=== PATIENT | female | born 1940 | race Caucasian/White ===

== ENCOUNTER 2018-03-25 15:19 | Outpatient (CLI) | payer MEDICARE, BC, SELFPAY ==
--- NOTE | 2018-03-25 14:00 | DI.MAMMO_ITS ---
SYMPTOMS/DIAGNOSIS: SCREENING, Z12.39 BILATERAL SCREENING MAMMOGRAM: Mammograms were interpreted according to the usual protocol including computer analysis with CAD system, tomosynthesis and C view imaging. Comparison is made with exams from 2013 through 2017. The breasts are composed of heterogeneously dense fibroglandular tissue, breast density category C. No suspicious masses or suspicious microcalcifications are seen. There has been no significant change. IMPRESSION: Category 1C, negative mammogram. Yearly screening mammography is recommended. RUST ASSESSMENT OF FINDINGS: Negative. Category 1. Patient will receive a letter notifying them of these results. Bi-RADS category C. The breasts are heterogeneously dense, which may obscure small masses.
== END 2018-03-25 15:39 ==
PROVIDERS: PCP Family Medicine; Visit Provider Family Medicine
DX: Z12.31 Encounter for screening mammogram for malignant neoplasm of breast (principal)
CPT/HCPCS: 77063; 77067

== ENCOUNTER 2018-06-17 10:47 | Outpatient (CLI) | payer MEDICARE, BC, SELFPAY ==
[2018-06-17 11:45] LABS: Abs Immature Grans 0.01 k/cumm (0.0-0.09); Absolute Basophil Count 0.06 k/cumm (0.0-0.2); Absolute Eosinophil Count 0.26 k/cumm (0.0-0.7); Absolute Lymphocyte Count 1.94 k/cumm (1.2-3.4); Absolute Monocyte Count 0.91 k/cumm (0.11-0.7); Absolute Neutrophil Count 5.25 k/cumm (1.2-6.7); Basophils % 0.7; Eosinophils % 3.1; HCT 41.3 % (36.0-46.0); HGB 13.9 g/dL (12.0-15.5); Immature Grans % 0.1; Mean Corp. HGB Concentration 33.7 g/dL (32.0-36.0); Mean Corpuscular Hemoglobin 32.7 pg (27.0-33.0); Mean Corpuscular Volume 97.2 fL (80-95); Mean Platelet Volume 11.1 fL (8.0-11.0); Monocytes % 10.8; Neutrophils % 62.3; Platelet Count 237 x1000/uL (130-400); RBC 4.25 m/cumm (4.00-5.20); RBC Distribution Width 13.4 % (11.7-14.6); White Blood Cell Count 8.43 k/cumm (4.4-10.8)
[2018-06-17 12:30] LABS: ALT 35 U/L (12-78); AST 22 U/L (15-37); Albumin 3.8 g/dL (3.4-5.0); Alkaline Phosphatase 74 U/L (46-116); Anion Gap 11.1 mmol/L (3-11); BUN 33 mg/dL (7-18); Bilirubin, Total 0.4 mg/dL (0.2-1.0); CO2 24.9 mmol/L (21.0-32.0); CREATININE 1.26 mg/dL (0.55-1.02); Calcium 9.3 mg/dL (8.5-10.1); Chloride 103 mmol/L (98-107); Cholesterol 252 mg/dL (50-200); Estimated GFR 40.96 (mL/min/1.73m2); Glucose 93 mg/dL (70-100); HDL Cholesterol 72 mg/dL (40-60); LDL CHOLESTEROL 173 mg/dL (<100); Potassium 4.4 mmol/L (3.5-5.1); Sodium 139 mmol/L (136-145); TSH 1.71 uIU/mL (0.358-3.74); Total Protein 8.3 g/dL (6.4-8.2); Triglyceride 69 mg/dL (30-150)
== END 2018-06-17 11:07 ==
PROVIDERS: PCP Family Medicine; Visit Provider Family Medicine
DX: E03.9 Hypothyroidism, unspecified (principal); E78.5 Hyperlipidemia, unspecified
CPT/HCPCS: 36415; 80053; 80061; 83721; 84443; 85025

== ENCOUNTER 2019-04-11 07:53 | Outpatient (CLI) | payer MEDICARE, BC, SELFPAY ==
--- NOTE | 2019-04-11 15:39 | DI.MAMMO_ITS ---
EXAM: MG MAMMO SCREENING CLINICAL HISTORY: SCREENING, Z12.31. TECHNIQUE: Bilateral full field digital CC and MLO mammographic images were obtained with 3D tomosyn thesis and utilizing computer aided detection (CAD). COMPARISON: Priors available for comparison. FINDINGS: Masses/Architectural Distortion: None seen. Microcalcifications: No suspicious pleomorphic-type are seen. Breast Density - Category C - Heterogeneously dense IMPRESSION: 1. No significant interval change with no specific features of malignancy noted. 2. Unless there is more urgent need, screening mammography is recommended, as per [place] [employer] guidelines. ACR BI-RAD Category- 1 Negative The mammogram demonstrates the patient's breast tissue is dense. Dense breast tissue is very common a nd is not abnormal but dense breast tissue can make it harder to find cancer on a mammogram. Also, de nse breast tissue may increase their breast cancer risk. This information about the result of the [facility] [place] [facility] mogram report was provided to the patient to raise their awareness. Use this report when you speak wi th the patient about their risks for breast cancer, which includes their family history. At that time , you may recommend for more screening tests (Ultrasound or MRI) as they might be useful based on the ir risk. A negative radiographic report should not delay biopsy if a dominant or clinically suspicious mass is present. Up to ten percent of cancers are not identified on mammography. A negative report may reinforce clinical impression. Adenosis and dense breasts may obscure an underlying neoplasm. False positive reports average 6 to 10%.
== END 2019-04-11 08:13 ==
PROVIDERS: PCP Family Medicine; Visit Provider Family Medicine
DX: Z12.31 Encounter for screening mammogram for malignant neoplasm of breast (principal)
CPT/HCPCS: 77063; 77067

== ENCOUNTER 2020-04-19 06:47 | Outpatient (CLI) | payer MEDICARE, BC, SELFPAY ==
--- NOTE | 2020-04-19 | DI.MAMMO_ITS ---
EXAM: MG MAMMO SCREENING CLINICAL HISTORY: SCREENING, Z12.31 TECHNIQUE: Mammograms were interpreted according to the usual protocol including computer analysis w [employer] CAD system, tomosynthesis and C-view imaging. COMPARISON: FINDINGS: The breasts are heterogeneously dense. No dominant mass or clumped microcalcification is identified in either breast. There are areas of asymmetric density without a discrete mass in the left breast, these appear unchanged in appearance in comparison with multiple prior mammograms and may represent f ibroglandular tissue and/or scarring. No change identified in comparison with mammograms including S eptember 2019. IMPRESSION: No specific evidence of malignancy at this time. Routine screening examinations are suggested at yea rly intervals due to the family history of breast carcinoma. BI-RADS Category 2 - Benign Findings Breast Density - Category C - Heterogeneously dense
== END 2020-04-19 07:07 ==
PROVIDERS: PCP Family Medicine; Visit Provider Family Medicine
DX: Z12.31 Encounter for screening mammogram for malignant neoplasm of breast (principal); Z80.3 Family history of malignant neoplasm of breast
CPT/HCPCS: 77063; 77067

== ENCOUNTER 2020-06-22 04:32 | Outpatient (CLI) | payer MEDICARE, BC, SELFPAY ==
[2020-06-22 17:02] LABS: TSH 0.21 uIU/mL (0.36-3.74)
== END 2020-06-22 04:52 ==
PROVIDERS: PCP Family Medicine; Visit Provider Family Medicine
DX: E03.9 Hypothyroidism, unspecified (principal)
CPT/HCPCS: 36415; 84443

== ENCOUNTER 2020-11-05 02:13 | Outpatient (CLI) | payer MEDICARE, BC, SELFPAY ==
[2020-11-05 11:29] LABS: Abs Immature Grans 0.03 10^3/uL (0.0-0.06); Absolute Basophil Count 0.08 10^3/uL (0.0-0.2); Absolute Eosinophil Count 0.33 10^3/uL (0.0-0.7); Absolute Lymphocyte Count 2.16 10^3/uL (1.2-3.4); Absolute Monocyte Count 0.87 10^3/uL (0.1-0.8); Absolute Neutrophil Count 4.44 10^3/uL (1.2-6.7); Eosinophils % 4.2; HCT 39.5 % (36.0-46.0); HGB 13.4 g/dL (11.2-15.7); Immature Grans % 0.4; Lymphocytes % 27.3; MCH 32.7 pg (27.0-33.0); MCHC 33.9 % (32.0-36.0); MCV 96.3 fL (80-95); MPV 11.2 fL (8.0-11.0); Neutrophils % 56.1; Nucleated RBC 0 %; Platelet Count 261 10^3/uL (130-400); RDW 12.7 % (11.7-14.6); WBC 7.91 10^3/uL (4.4-10.8)
[2020-11-05 11:59] LABS: ALT 38 U/L (14-59); AST 24 U/L (15-37); Albumin 3.7 g/dL (3.4-5.0); Alkaline Phosphatase 79 U/L (46-116); Anion Gap 11.2 mmol/L (3-11); BUN 30 mg/dL (7-18); Bilirubin, Total 0.3 mg/dL (0.2-1.0); CO2 22.8 mmol/L (21.0-32.0); CREATININE 1.3 mg/dL (0.55-1.02); Calcium 9.3 mg/dL (8.5-10.1); Calculated LDL 144 mg/dL (<100); Chloride 108 mmol/L (98-107); Cholesterol 223 mg/dL (<200); Estimated GFR 39.21 (mL/min/1.73m2); Glucose 93 mg/dL (74-106); HDL Cholesterol 61 mg/dL (40-60); Potassium 4.5 mmol/L (3.5-5.1); Sodium 142 mmol/L (136-145); TSH 3.49 uIU/mL (0.36-3.74); Total Protein 8.2 g/dL (6.4-8.2); Triglyceride 91 mg/dL (<150)
== END 2020-11-05 02:14 | disposition home or self-care (01) ==
LOC: LBO 02:14
PROVIDERS: PCP Family Medicine; Visit Provider Family Medicine
DX: E78.5 Hyperlipidemia, unspecified (principal); E03.9 Hypothyroidism, unspecified
CPT/HCPCS: 36415; 80053; 80061; 84443; 85025

== ENCOUNTER 2021-05-12 01:09 | Outpatient (CLI) | payer MEDICARE, BC, SELFPAY ==
--- NOTE | 2021-05-12 | DI.MAMMO_ITS ---
Exam(s) MAMMO SCREENING EXAM: MAMMO SCREENING CLINICAL HISTORY: SCREENING, Z12.31. TECHNIQUE: Bilateral full field digital CC and MLO mammographic images were obtained with 3D tomosyn thesis and utilizing computer aided detection (CAD). COMPARISON: Prior mammograms dating back to 2011, the most recent being April 2020. FINDINGS: There has been no significant change in the appearance and distribution of the fibroglandular tissue. There are no new spiculated masses nor malignant appearing microcalcification groups. There is no significant architectural distortion nor skin thickening-retraction. IMPRESSION: No radiographic evidence of malignancy. BI-RADS Category 1 - Negative Breast Density - Category B - Scattered areas of fibroglandular density Breast density Category C or D implies that the patient has dense breast tissue. Dense breast tissue can make it harder to find cancer on a mammogram. Dense breast tissue is also associated with an incr eased risk of breast cancer. This information about the result of the mammogram report was provided to the patient to raise their awareness. Use this report when you speak with the patient about their risks for breast cancer, which includes their family history. At that time, you may recommend additional screening tests (Ultrasoun d or MRI) as these tests may add significant information. A negative radiographic report should not delay biopsy if a dominant or clinically suspicious mass is present. Up to ten percent of cancers are not identified on mammography. A negative report may reinforce clinical impression. Adenosis and dense breasts may obscure an underlying neoplasm. False positive reports average 6 to 10%. Patient will receive a letter notifying them of these results.
== END 2021-05-12 01:29 ==
PROVIDERS: PCP Family Medicine; Visit Provider Family Medicine
DX: Z12.31 Encounter for screening mammogram for malignant neoplasm of breast (principal)
CPT/HCPCS: 77063; 77067

== ENCOUNTER 2021-05-24 18:18 | Emergency (ER) | payer MEDICARE, BC, SELFPAY ==
--- NOTE | 2021-05-24 18:15 | DI.RAD_ITS ---
Exam(s) XR HIP RT COMPLETE AP PELVIS EXAM: XR HIP RT COMPLETE AP PELVIS CLINICAL HISTORY: pain. TECHNIQUE: 2D digital imaging was performed. COMPARISON: CR RIGHT HIP COMPLETE from 08/18/2011 FINDINGS: Position alignment of the components of the right hip prosthesis remain stable. No fracture or loose chance evident. Incidentally noted is contrast in the ureters and urinary bladder, this related to proceeding CT scan . IMPRESSION: DATA REPOSITORY: RADIATION DOSE DELIVERED:
[2021-05-24 18:22] VITALS: BP 130/74; PULSE 102; RESP 16; TEMP 36.8; O2SAT 100
--- NOTE | 2021-05-24 18:27 | ED.GENADUL_ITS ---
Discharge Plan Disposition Patient Disposition: HOME Condition: Stable Discharge Details Clinical Impression: Acute right hip pain Primary Care Provider: Trell Weston ED Provider: Chris Case Home Meds and New Rx's Prescriptions: No Action levothyroxine [Synthroid] 150 mcg tablet 150 mcg PO QAM RF: 0 Discharge Instructions Instructions: Hip Pain (ED) Additional Instructions: At this time your x-rays and CAT scans showed no significant abnormality. Please take Tylenol as needed for pain and ice the joint if necessary. Avoid any vigorous activities and I would take a break in golfing for a little bit. Please follow-up on an outpatient basis with the funding specialist Dr. Anderson and Dr. Bennett. If you notice any worsening of your symptoms, or any new symptoms such as vomiting, diarrhea, fever, chills, shortness of breath, chest pain, numbness, weakness, or fainting , please return immediately to the emergency department for reevaluation. Please follow up with your primary care provider as soon as possible for reassessment and reevaluation. As always, it was a pleasure participating in your medical care today. Referrals: Vern Bennett MD [ [facility] STAFF PHYSICIAN] - Trell Weston [Primary Care Provider] - Judd Anderson MD [ [facility] STAFF PHYSICIAN] - Medical Decision Making <Reji Saleem MD - Last Filed: 05/24/21 18:41> 80 yo female who had a right hip replacement in 2005 comes in with right hip pain for 2 days with no known injury or trauma. She is able to bear weight on it without a limp and denies leg swelling or fevers. She has full range of motion of the hip and intact distal sensation, has tenderness over the lateral hip w ithout warmth or erythema, no back tenderness. She has not had gi symptoms but on exam is tender in the right lower abdomen, no guarding or reboud tenderness. Suspect this is likely hip strain vs bursitis but given her age and the right lower abdominal tenderness will obtain ct to further evaluate for possible appendicitis Differential Diagnosis Differential Diagnosis: bursitis, strain, fracture Lab Data Lab results reviewed: Yes I reviewed the patient's lab results. <Chris Case DO - Last Filed: 05/24/21 23:02> Patient was signed out to me tomorrow by my colleague Dr. Saleem. Please refer to his physical exam assessment and plan in HPI. At time of exam the patient had mild pain in the right lower quadrant versus the right hip. Concern was for potential intra-abdominal pathology versus orthotic hip pathology. X-ray and CT scan were ordered by Dr. Saleem for further assessment as well as labs. Laboratory work-up is returned notably unremarkable. CT scan of the abdomen and x-ray of the right hip is negative for acute process per virtual radiology. On reassessment the patient looks clinically well, no reproducible abdominal tenderness on exam, no signs of an acute surgical abdomen. Hip is relatively nontender, with mild pain with movement at all. No evidence of septic joint, or other abnormality otherwise. At this time suspect symptoms are likely related to arthritis, and potential mild joint irritation. Recommend outpatient follow-up with orthopedics in this area. Recommend ice and Tylenol. Discussed red flags which to return. Also recommend that the patient take a break from golfing as she is quite the avid golfer and walks around quite a bit still with this. I have extensively reviewed the treatment plan and discharge instructions with the patient and their family. I have addressed all patient concerns at this time. The patient and family was made aware of what symptoms to monitor for that would warrant a return to the emergency department. Discussed the plan with the patient and family, they demonstrate verbal understanding and agreement with our assessment and plan at this time. The documentation in this chart was dictated using [employer] dictation software. Please excuse any dictation errors. FINDINGS: Lungs: Mild interstitial lung disease with bronchiectasis. Liver: Normal. No mass. Gallbladder and bile ducts: Collapsed gallbladder. Wall thickening noted in the fundus. No calcified stones. Pancreas: Fatty replaced ventral pancreas. No inflammatory changes. No ductal dilatation. Spleen: Chronic splenic granulomas. Chronic inferior splenic infarct. Normal size overall. Adrenal glands: Normal. No mass. Kidneys and ureters: Negative for hydronephrosis. Kidneys enhance symmetrically. Simple cyst inferior pole right kidney 3.7 cm. Nondilated ureters. No stones observed. Stomach and bowel: Extensive sigmoid colon diverticulosis. No acute inflammatory changes observed around the colon. Scattered diverticula noted elsewhere in the colon. Normal ileocecal valve and terminal ileum. Nondilated small bowel. Unremarkable stomach. Appendix: No evidence of appendicitis. The appendix is not well-visualized. Intraperitoneal space: Unremarkable. No free air. No significant fluid collection. Vasculature: Negative for aneurysm. Moderate vascular calcifications. Lymph nodes: Unremarkable. No enlarged lymph nodes. Urinary bladder: Collapsed urinary bladder. No stones. Reproductive: Unremarkable as visualized. Bones/joints: Right hip arthroplasty. Negative for periprosthetic fracture or lucency. Moderate left hip narrowing. Negative for compression fracture. Degenerative anterolisthesis L3 on L4. Mild multilevel degenerative disc disease and facet arthropathy. Chronic endplate depression L5 superior endplate. Soft tissues: Negative for abdominal wall hernia or fluid collection. Infraumbilical scar tissue and surgical material noted. IMPRESSION: Negative for bowel obstruction or acute inflammatory abnormality. Thank you for allowing us to participate in the care of your patient. Dictated and Authenticated by: Reji Roca MD 05/24/2021 8:39 PM Eastern Time ([place] & [place]) FINDINGS: Bones/joints: Right total hip arthroplasty. Components are well seated. Negative for acute fracture or lucency around the hardware. Femoral head is centered in the acetabular cup. Right pubic rami are intact. Moderate narrowing present in the left hip, with subchondral sclerosis and osteophyte formation. Moderate degenerative changes present in the lumbar spine. Soft tissues: Unremarkable. Organs: Contrast present in the urinary bladder from the earlier CT. The left ureter is well opacified and appears normal. Vasculature: Phleboliths are noted in the pelvis. Moderate vascular calcifications noted. IMPRESSION: Right total hip arthroplasty. No complications appreciated. Thank you for allowing us to participate in the care of your patient. Dictated and Authenticated by: Reji Roca MD 05/24/2021 8:42 PM Eastern Time ([place] & [place]) HPI <Reji Saleem MD - Last Filed: 05/24/21 18:41> General Mode of arrival: ambulatory . Date/Time Provider Initiated Documentation: 05/24/21 18:22 . Limitations to Documentation: no limitations . Information obtained by: patient . History of Present Illness 80 year old F presents to the emergency department with the chief complaint of right hip pain, described as moderate, Quality is described as aching, Patient reports no radiation. Patient started experiencing this day(s) (2) and it has been constant. No relieving factors improve symptom(s), Other factors that worsen symptoms (bending forward) . Patient notes no other symptoms.. Related Data Home Medications Medication Instructions Recorded Confirmed levothyroxine [Synthroid] 150 mcg PO QAM 05/24/21 05/24/21 Allergies Allergy/AdvReac Type Severity Reaction Status Date / Time meperidine [From Demerol] AdvReac Intermediate Nausea Unverified 05/24/21 18:27 morphine AdvReac Intermediate Nausea Unverified 05/24/21 18:27 General Stated Complaint: Orthopedic ANIYA: 4 Review of Systems <Reji Saleem MD - Last Filed: 05/24/21 18:41> All systems reviewed & are unremarkable except as noted in HPI and below Constitutional Constitutional: Denies chills, Denies fever(s) and Denies weakness Cardiovascular Cardiovascular: Denies chest pain and Denies dyspnea Respiratory Respiratory: Denies cough and Denies dyspnea Gastrointestinal Gastrointestinal: Denies abdominal pain, Denies nausea and Denies vomiting Musculoskeletal Musculoskeletal: Denies joint swelling Neurologic Neurologic: Denies weakness PFS <Reji Saleem MD - Last Filed: 05/24/21 18:41> Social History Smoking/Tobacco Use Status: Never Smoking risk assessment performed?: Yes Alcohol Intake: current Alcohol Intake frequency: 0-2 drinks per day Alcohol type: wine Substance use type: does not use Do you feel safe at home: Yes Do you feel safe in your relationship?: Yes Exam <Reji Saleem MD - Last Filed: 05/24/21 18:41> Const General: no acute distress Orientation: alert HENCT Head: normal to inspection Ears: external ears normal General nose exam: external nose normal Mouth: moist mucous membranes Eyes General: appearance normal, both eyes and all related structures Neck Neck: normal visual inspection Resp Effort & Inspection: normal respiratory effort and able to speak in complete sentences Cardio Rate: regular rate Skin General skin exam: no rashes or lesions noted Neuro General: patient alert and patient oriented x3 Extrem General: normal to inspection Psych Mental Status: mental status grossly normal Course <Reji Saleem MD - Last Filed: 05/24/21 18:41> Vital Signs Vital signs: Vital Signs Temperature 36.8 C 05/24/21 18:22 Pulse 102 H 05/24/21 18:22 Respiratory Rate 16 05/24/21 18:22 Blood Pressure 130/74 05/24/21 18:22 Pulse Oximetry 100 05/24/21 18:22 Temperature 36.8 C 05/24/21 18:22 Temperature Source Temporal Artery Scan 05/24/21 18:22 Pulse 102 H 05/24/21 18:22 Respiratory Rate 16 05/24/21 18:22 Respiratory Effort Non-Labored 05/24/21 18:25 Blood Pressure 130/74 05/24/21 18:22 Blood Pressure Position Sitting 05/24/21 18:22 Pulse Oximetry 100 05/24/21 18:22 Oxygen Delivery Method Room Air 05/24/21 18:22 Oxygen Flow Rate 0 05/24/21 18:22 Pain Level 0 05/24/21 18:22 Comment 05/24/21 18:22 Sign Out <Reji Saleem MD - Last Filed: 05/24/21 18:41> Sign Out Data: Sign Out Comment: right hip and right lower abdominal pain, pending ct scan Last updated by Reji Saleem MD at 05/24/21 18:55 PAWSS <Reji Saleem MD - Last Filed: 05/24/21 18:41> Have you Been Recently Intoxicated or Drunk Within the Last 30 days?: No Have you Ever Experienced Previous Episodes of Alcohol Withdrawal?: No Have you ever Experienced Withdrawal Seizures?: No Have you ever Experienced Delirium Tremens(DT)s?: No Have you ever undergone Alcohol Rehabilitation Treatment (i.e, inpt ot outpatien t treatment programs)?: No Have you ever Experienced Blackouts?: No Have you ever Combined Alcohol with other Downers within the last 90 days?: No Have you ever Combined Alcohol with any other Substance of Abuse during the last 90 days?: No Positive Blood Alcohol level on Presentation? [PCS.BAL]: No Evidence of Increased Autonomic Activity (i.e. HR>120, tremor, sweating, agitation, nausea)?: No Result: 0
--- NOTE | 2021-05-24 18:30 | DI.CT_ITS ---
Exam(s) CT ABDOMEN PELVIS W EXAM: CT ABDOMEN PELVIS W CLINICAL HISTORY: right lower abdomen pain. TECHNIQUE: Imaging Protocol: Axial computed tomography images with coronal and sagittal reformatted images were created and reviewed CONTRAST MATERIAL: Intravenous: Omnipaque 85cc Oral: None COMPARISON: No exams were available for comparison FINDINGS: VISUALIZED LUNG BASES: No nodules nor pleural effusions evident. ABDOMEN: There is no ascites. LIVER: There are no focal hepatic lesions evident . GALLBLADDER/BILIARY: No obvious gallbladder pathology. CBD is not dilated. PANCREAS: No evidence of pancreatic mass nor dilatation of the pancreatic duct. SPLEEN: Spleen size is normal. Calcified splenic granulomas are noted. Hypodensity in the superior aspect of the spleen noted which probably is related to prior area of infarction. Splenic and portal veins are patent. ADRENALS: There are no significant adrenal masses. KIDNEYS:There is a 3.8 cm cyst in the inferior pole of the right kidney. No other cysts. No solid r enal masses. No calculi nor hydronephrosis.. ABDOMINAL AORTA: Abdominal aorta is heavily calcified but not enlarged. The common iliac arteries ar e also heavily calcified but not enlarged. LYMPH NODES:There is no retroperitoneal nor paraaortic adenopathy. ABDOMINAL WALL: There is a vertical suture line in the upper abdomen above the umbilicus level. Ther e is no evidence of significant anterior abdominal hernia. No evidence of inguinal hernia. GI: There is no evidence of bowel obstruction, free air, nor abscess. PELVIS: GI: The appendix is not seen is a separate structure. However, there are no secondary signs of acute appendicitis.There is extensive sigmoid diverticulosis. No evidence of obvious acute diverticulitis . LYMPH NODES: There is no intrapelvic nor inguinal adenopathy. REPRODUCTIVE: Age-appropriate uterus size. No abnormal adnexal masses nor free fluid. URINARY BLADDER: No calculi nor obvious masses evident OSSEOUS: Right hip prosthesis. Degenerative anterolisthesis of L3 upon L4, approximately 3 millimeters.. Multilevel facet arthropat hy noted in the lumbar spine. Endplate depression superior endplate L5, having chronic appearance. IMPRESSION: 1. Extensive sigmoid diverticulosis. No obvious acute diverticulitis. 2. Benign 3.8 centimetres cyst in the inferior pole the right kidney. No other significant renal fin dings. 3. No evidence of acute inflammatory process in the abdomen and pelvis. There is no ascites. 4. 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 RADIATION DOSE DELIVERED: 736.22mGy.cm Total DLP DATA REPOSITORY: All CT scans at this facility are submitted to the National Radiology Data Registry (NRDR) Dose Index Registry (DIR) with the [employer] (ACR). RADIATION OPTIMIZATION: All CT scans at this facility use at least one of these dose optimization te chniques: automated exposure control; mA and/or kV adjustment per patient size (includes targeted exa ms where dose is matched to clinical indication); or iterative reconstruction.
[2021-05-24] MEDS: Acetaminophen 500 MG TAB 1000 MG PO (18:53)
[2021-05-24 19:15] LABS: Abs Immature Grans 0.03 10^3/uL (0.0-0.06); Absolute Basophil Count 0.06 10^3/uL (0.0-0.2); Absolute Eosinophil Count 0.15 10^3/uL (0.0-0.7); Absolute Lymphocyte Count 1.87 10^3/uL (1.2-3.4); Absolute Neutrophil Count 6.55 10^3/uL (1.2-6.7); Basophils % 0.6; Eosinophils % 1.6; HCT 43.1 % (36.0-46.0); HGB 14.3 g/dL (11.2-15.7); Immature Grans % 0.3; Lymphocytes % 19.6; MCH 32.3 pg (27.0-33.0); MCHC 33.2 % (32.0-36.0); MCV 97.3 fL (80-95); Monocytes % 9.4; Neutrophils % 68.5; Nucleated RBC 0 %; Platelet Count 256 10^3/uL (130-400); RBC 4.43 10^6/uL (3.93-5.22); RDW 12.3 % (11.7-14.6); RDW-SD 44.1 fL; WBC 9.56 10^3/uL (4.4-10.8)
[2021-05-24 19:47] LABS: Albumin 4.1 g/dL (3.4-5.0); BUN 35 mg/dL (7-18); Bilirubin, Total 0.3 mg/dL (0.2-1.0); CREATININE 1.3 mg/dL (0.55-1.02); Calcium 9.3 mg/dL (8.5-10.1); Estimated GFR 39.21 (mL/min/1.73m2); Glucose 139 mg/dL (74-106); Total Protein 9.7 g/dL (6.4-8.2)
[2021-05-24 19:48] LABS: ALT 51 U/L (14-59); AST 23 U/L (15-37); Alkaline Phosphatase 78 U/L (46-116); Anion Gap 10.3 mmol/L (3-11); Bilirubin, Direct 0.1 mg/dL (0.0-0.2); CO2 24.7 mmol/L (21.0-32.0); Chloride 105 mmol/L (98-107); Lipase 225 U/L (73-393); Potassium 4.3 mmol/L (3.5-5.1); Sodium 140 mmol/L (136-145)
[2021-05-24] MEDS: Omnipaque 350 MG/ML 100 ML BTL IJ (19:54)
[2021-05-24] MEDS: Normal Saline - Diluent 50 ML VIAL IV (19:57)
[2021-05-24] MEDS: Normal Saline Flush 10 ML SYR IVP (19:57)
--- NOTE | 2021-05-24 20:40 | DI.VRAD_ITS ---
PROCEDURE INFORMATION: Exam: CT Abdomen And Pelvis With Contrast Exam date and time: 05/24/2021 6:36 PM Age: 80 years old Clinical indication: Abdominal pain; Localized; Right lower quadrant (rlq); Prior surgery; Surgery date: 6+ months; Surgery type: R hip; Patient HX: Rlq pain for 3 days TECHNIQUE: Imaging protocol: Computed tomography of the abdomen and pelvis with contrast. Radiation optimization: All CT scans at this facility use at least one of these dose optimization techniques: automated exposure control; mA and/or kV adjustment per patient size (includes targeted exams where dose is matched to clinical indication); or iterative reconstruction. Contrast material: OMNIPAQUE 350; Contrast volume: 85 ml; Contrast route: INTRAVENOUS (IV); COMPARISON: No relevant prior studies available. FINDINGS: Lungs: Mild interstitial lung disease with bronchiectasis. Liver: Normal. No mass. Gallbladder and bile ducts: Collapsed gallbladder. Wall thickening noted in the fundus. No calcified stones. Pancreas: Fatty replaced ventral pancreas. No inflammatory changes. No ductal dilatation. Spleen: Chronic splenic granulomas. Chronic inferior splenic infarct. Normal size overall. Adrenal glands: Normal. No mass. Kidneys and ureters: Negative for hydronephrosis. Kidneys enhance symmetrically. Simple cyst inferior pole right kidney 3.7 cm. Nondilated ureters. No stones observed. Stomach and bowel: Extensive sigmoid colon diverticulosis. No acute inflammatory changes observed around the colon. Scattered diverticula noted elsewhere in the colon. Normal ileocecal valve and terminal ileum. Nondilated small bowel. Unremarkable stomach. Appendix: No evidence of appendicitis. The appendix is not well-visualized. Intraperitoneal space: Unremarkable. No free air. No significant fluid collection. Vasculature: Negative for aneurysm. Moderate vascular calcifications. Lymph nodes: Unremarkable. No enlarged lymph nodes. Urinary bladder: Collapsed urinary bladder. No stones. Reproductive: Unremarkable as visualized. Bones/joints: Right hip arthroplasty. Negative for periprosthetic fracture or lucency. Moderate left hip narrowing. Negative for compression fracture. Degenerative anterolisthesis L3 on L4. Mild multilevel degenerative disc disease and facet arthropathy. Chronic endplate depression L5 superior endplate. Soft tissues: Negative for abdominal wall hernia or fluid collection. Infraumbilical scar tissue and surgical material noted. IMPRESSION: Negative for bowel obstruction or acute inflammatory abnormality. Dictated and Authenticated by: Reji Roca MD. Ordering:CHAYITO Mendoza MD
--- NOTE | 2021-05-24 20:43 | DI.VRAD_ITS ---
PROCEDURE INFORMATION: Exam: XR Right Hip Exam date and time: 05/24/2021 6:27 PM Age: 80 years old Clinical indication: Hip pain; Right hip; Prior surgery; Surgery date: 6+ months; Surgery type: Hip repair 13 years ago TECHNIQUE: Imaging protocol: XR Right hip. Views: 2 or 3 views hip with pelvis when performed. COMPARISON: CT ABDOMEN PELVIS W 05/24/2021 7:56 PM FINDINGS: Bones/joints: Right total hip arthroplasty. Components are well seated. Negative for acute fracture or lucency around the hardware. Femoral head is centered in the acetabular cup. Right pubic rami are intact. Moderate narrowing present in the left hip, with subchondral sclerosis and osteophyte formation. Moderate degenerative changes present in the lumbar spine. Soft tissues: Unremarkable. Organs: Contrast present in the urinary bladder from the earlier CT. The left ureter is well opacified and appears normal. Vasculature: Phleboliths are noted in the pelvis. Moderate vascular calcifications noted. IMPRESSION: Right total hip arthroplasty. No complications appreciated. Dictated and Authenticated by: Reji Roca MD. Ordering:CHAYITO Mendoza MD
[2021-05-24] MEDS: Normal Saline 1,000 ML 1000 ML IV (20:50)
== END 2021-05-24 22:18 | disposition home or self-care (01) ==
PROVIDERS: Emergency Medicine; Emergency Provider Student in an Organized Health Care Education/Training Program; PCP Family Medicine
DX: M25.551 Pain in right hip (principal); Z96.641 Presence of right artificial hip joint; R10.31 Right lower quadrant pain
CPT/HCPCS: 36415; 80053; 83690; 96360; 99285; 73502; 74177; 82248; 85025; 99284; J3490

== ENCOUNTER 2021-08-31 16:00 | Outpatient (REF) | payer MEDICARE, BC, SELFPAY ==
[2021-08-31 21:38] LABS: ALT 46 U/L (14-59); AST 26 U/L (15-37); Alkaline Phosphatase 76 U/L (46-116); Anion Gap 12.5 mmol/L (3-11); BUN 33 mg/dL (7-18); Bilirubin, Total 0.5 mg/dL (0.2-1.0); CO2 21.5 mmol/L (21.0-32.0); CREATININE 1.4 mg/dL (0.55-1.02); Calcium 9.1 mg/dL (8.5-10.1); Calculated LDL 149 mg/dL (<100); Chloride 104 mmol/L (98-107); Cholesterol 237 mg/dL (<200); Glucose 88 mg/dL (74-106); HDL Cholesterol 76 mg/dL (40-60); Potassium 4.2 mmol/L (3.5-5.1); Sodium 138 mmol/L (136-145); TSH 0.66 uIU/mL (0.36-3.74); Total Protein 8.8 g/dL (6.4-8.2); Triglyceride 63 mg/dL (<150)
== END 2021-08-31 16:01 | disposition home or self-care (01) ==
LOC: NCHCN 16:00
PROVIDERS: PCP Family Medicine; Visit Provider Nurse Practitioner Family
DX: E03.9 Hypothyroidism, unspecified (principal); N18.31 Chronic kidney disease, stage 3a; M81.0 Age-related osteoporosis without current pathological fracture
CPT/HCPCS: 80053; 80061; 84443

== ENCOUNTER 2021-11-02 12:32 | Outpatient (REF) | payer MEDICARE, BC, SELFPAY ==
[2021-11-02 20:20] LABS: Anion Gap 7.2 mmol/L (3-11); BUN 35 mg/dL (7-18); CO2 24.8 mmol/L (21.0-32.0); CREATININE 1.4 mg/dL (0.55-1.02); Calcium 9.1 mg/dL (8.5-10.1); Chloride 103 mmol/L (98-107); Estimated GFR 35.91 (mL/min/1.73m2); Glucose 98 mg/dL (74-106); Potassium 4.5 mmol/L (3.5-5.1); Sodium 135 mmol/L (136-145)
== END 2021-11-02 12:33 | disposition home or self-care (01) ==
LOC: NCHCN 12:32
PROVIDERS: PCP Family Medicine; Visit Provider Nurse Practitioner Family
DX: E03.9 Hypothyroidism, unspecified (principal); N18.31 Chronic kidney disease, stage 3a
CPT/HCPCS: 80048; 84443

== ENCOUNTER 2023-02-15 17:25 | Emergency (ER) | payer MEDICARE, BC, SELFPAY ==
[2023-02-15 17:28] VITALS: BP 134/64; PULSE 105; RESP 20; TEMP 36.3; O2SAT 95
--- NOTE | 2023-02-15 18:15 | DI.CT_ITS ---
Exam(s) CT CHEST/ABD/PEL WO EXAM: CT CHEST/ABD/PEL WO CLINICAL HISTORY: trauma, thoracic pain, lumbar pain. TECHNIQUE: Imaging Protocol: Axial computed tomography images with coronal and sagittal reformatted images were created and reviewed CONTRAST MATERIAL: Intravenous: none Oral: None COMPARISON: CT CT ABDOMEN PELVIS W from 05/24/2021 FINDINGS: CHEST: LUNGS: There is a benign calcified granuloma measuring 3 mm in the right lung. No ominous pulmonary nodules. No confluent infiltrates and no pleural effusions. Some benign-appearing focal pleural thi ckening is noted posteriorly over the right lower lobe.. MEDIASTINUM: There is no evidence of sternal fracture or mediastinal hematoma. No hilar nor mediasti nal adenopathy evident. CARDIAC: Heart size is normal. There is no pericardial effusion.Calcified mitral valve annulus noted . Also coronary artery calcification. Caliber of thoracic aorta is normal. OSSEOUS: There is a 50 percent compression fracture T9 vertebral body, age indeterminate. No retrop ulsed cortex at this level evident.No other vertebral fractures and no rib fractures evident.. ABDOMEN: There is no ascites. No evidence of mesenteric nor bowel wall hematoma. LIVER: There are no obvious focal hepatic lesions evident of this noninfused study. No liver lacerat ion evident. GALLBLADDER/BILIARY: No obvious gallbladder pathology. CBD is not dilated. PANCREAS: No evidence of obvious pancreatic mass nor dilatation of the pancreatic duct. SPLEEN: Spleen size normal. No laceration evident. Calcified splenic granulomas noted. ADRENALS: There are no significant adrenal masses. KIDNEYS: No evidence of renal laceration or subcapsular hematoma.. There is again noted benign cyst in the inferior pole of the right kidney measuring 3.5 by 4.3 cm by 4.3 cm. This benign cyst does no t require further workup. No calculi. No hydronephrosis nor hydroureter. ABDOMINAL AORTA: Calcified but not enlarged. Iliac arteries are also calcified but not enlarged. LYMPH NODES: There is no retroperitoneal nor para-aortic adenopathy. ABDOMINAL WALL/GI: There midline fascial level sutures. No hematoma. No hernia evident. No evidence of bowel obstruction. PELVIS: LYMPH NODES: There is no intrapelvic nor inguinal adenopathy. GI: No evidence of appendicitis.Sigmoid diverticulosis but no evidence of acute diverticulitis. No f ree fluid. URINARY BLADDER: No calculi nor obvious masses evident REPRODUCTIVE: Age appropriate OSSEOUS: Right hip prosthesis. No pelvic fractures.. No sacral fractures. SI joints unremarkable. IMPRESSION: 1. There is a compression fracture of T9 vertebral body, approximately 50 percent. Age indeterminate . May not be acute. Correlation with site of tenderness recommended. No other fractures identified . 2. No other significant intrathoracic findings. 3. No significant acute findings in the abdomen pelvis. RADIATION DOSE DELIVERED: 808.34 mGy.cm Total DLP DATA REPOSITORY: All CT scans at this facility are submitted to the National Radiology Data Registry (NRDR) Dose Index Registry (DIR) with the [employer] (A[employer]). RADIATION OPTIMIZATION: All CT scans at this facility use at least one of these dose optimization te chniques: automated exposure control; mA and/or kV adjustment per patient size (includes targeted exa ms where dose is matched to clinical indication); or iterative reconstruction.
--- NOTE | 2023-02-15 18:15 | DI.CT_ITS ---
Exam(s) CT HEAD CERVICAL SPINE WO EXAM: CT HEAD CERVICAL SPINE WO CLINICAL HISTORY: trauma. TECHNIQUE: Imaging Protocol: Axial computed tomography images with coronal and sagittal reformatted images were created and reviewed COMPARISON: CT CT MAXILLOFAC from 10/01/2007 FINDINGS: BRAIN: There are no skull fractures. There is evidence of paranasal sinus surgery in right maxillary sinus. Some mucosal thickening but n o fluid level. Left maxillary sinus is clear as are sphenoid frontal sinuses and ethmoidal air cells , some which have been resected on the right side. There is no evidence of intracranial hemorrhage, mass effect, or shift of midline structures. There are no extra-axial fluid collections. There is relatively symmetrical atrophy. Size of the lateral ventricles is slightly prominent but commensurate with the size of the overlying cortical sulci. CERVICAL SPINE: There is no evidence of fracture nor listhesis. No significant prevertebral soft tissue swelling. Chronic disc space narrowing at C5-6 and C6-7 levels. Multilevel facet arthropathy. There is no significant facet joint malalignment. No significant osseous lesions evident. IMPRESSION: No acute intracranial findings on this noninfused CT scan of the brain.Previous right paranasal sinus surgery. No evidence of cervical spine fracture, malalignment, nor acute compromise of the cervical spinal can al. RADIATION DOSE DELIVERED: 1,244.65mGy.cm Total DLP DATA REPOSITORY: All CT scans at this facility are submitted to the National Radiology Data Registry (NRDR) Dose Index Registry (DIR) with the [employer] (ACR). RADIATION OPTIMIZATION: All CT scans at this facility use at least one of these dose optimization te chniques: automated exposure control; mA and/or kV adjustment per patient size (includes targeted exa ms where dose is matched to clinical indication); or iterative reconstruction.
[2023-02-15] MEDS: Ondansetron O.D.T. 4 MG TABEF PO (18:34)
--- NOTE | 2023-02-15 18:36 | W.ED.GENAD ---
Discharge Plan Discharge Details Chief Complaint: Nk/Back Pain Clinical Impression: Back pain, Fall Primary Care Provider: Alma Scott ED Provider: Mohini Lindsey Home Meds and New Rx's Prescriptions: No Action melatonin 5 mg tablet 5 mg PO DAILY PRN ibuprofen 800 mg tablet 800 mg PO TID prednisolone acetate 1 % drops,suspension 1 drp ophthalmic (eye) 1XD levothyroxine [Synthroid] 150 mcg tablet 150 mcg PO QAM Medical Decision Making 82-year-old female presents for evaluation of back pain after mechanical fall. Denies any loss of consciousness. Denies any recent illnesses. On evaluation she does have back pain in several locations. She is neurologically intact. Right shoulder start 0. Patient initially declined IV medication however she opted for IV medication as she did not feel she would be able to get imaging done without it. CT reports pending at this time. Patient required additional dose of pain medication. Signed out to oncoming provider with CT reports and disposition pending. HPI General Date/Time Provider Initiated Documentation: 02/15/23 17:27. HPI Narrative: 82-year-old female presents for evaluation. Patient states that she fell on Sunday. She states that she slept in the night. She went to the kitchen and was standing at the sink when she realized she felt woozy. She fell backwards. She did hit the back of her head as well as her back. She did not have any loss of consciousness. She was able to crawl to the living room and get herself off the ground. She states that since that time she has been having increasing pain in her back. She denies any numbness or tingling in her extremities. No weakness in her extremities. She does have some rib discomfort. She denies any chest pain or shortness of breath. She has been taking Tylenol and Motrin at home without any significant improvement. Denies any loss of bowel or bladder function. No saddle anesthesia. She is not on any blood thinners. Denies any headaches. No vomiting. She states that she now has significant discomfort and is unable to lay flat. She feels most comfortable sitting on the side of the bed leaning forward. Related Data Home Medications Medication Instructions Recorded Confirmed levothyroxine 150 mcg tablet 150 mcg PO QAM 05/24/21 02/15/23 (Synthroid) ibuprofen 800 mg tablet 800 mg PO TID 11/09/22 02/15/23 melatonin 5 mg tablet 5 mg PO DAILY PRN 11/09/22 02/15/23 prednisolone acetate 1 % eye 1 drp ophthalmic (eye) 1XD 02/15/23 02/15/23 drops,suspension Allergies Allergy/AdvReac Type Severity Reaction Status Date / Time codeine Allergy Unknown Unverified 02/15/23 17:36 estrogens, conjugated Allergy Unknown Unverified 02/15/23 17:36 [From Premarin] levothyroxine sodium Allergy Unknown Unverified 02/15/23 17:36 [From Synthroid] meperidine [From Demerol] AdvReac Intermediate Nausea Unverified 02/15/23 17:36 morphine AdvReac Intermediate Nausea Unverified 02/15/23 17:36 General Stated Complaint: Nk/Back Pain ANIYA: 3 Review of Systems Narrative: Remainder of review of systems otherwise negative except for as noted in the HPI x10. PFSH All Active Problems (Updated 02/15/23 @ 19:50 by Mohini Lindsey MD) Back pain (Acute) Fall (Acute) Hypothyroidism (Chronic) Osteoporosis (Chronic) Protein S deficiency (Acute) Sialadenitis (Acute) Chronic kidney disease (Chronic) Dyspnea (Acute) deconditioned Vitamin D deficiency (Acute) takes supplement Diverticulosis (Acute) Presbyopia (Acute) Infiltrating lobular carcinoma of breast, stage 1 (Acute) Left breast Dr. Will, [facility] surgeon Medical History Breast lump or mass Dr. Will, [facility] surgeon Chronic osteomyelitis of jaw historical use of Premarin with protein s deficiency. Many surgeries in her history, has dental implants. Surgical History History of left cataract surgery (~07/18/14) History of right cataract surgery (~06/28/14) Hx of section Hx of colonoscopy 2001, 2016 Hx of removal of cyst (~1993) Hx of sinus surgery 1988, 2006, 08/2015, 01/2016 Hx of tonsillectomy Hx of wisdom tooth extraction (~1987) Family History Mother , 85 No problems noted. Father , 49 Heart disease Sister , 80 Breast cancer Brother , 55 Heart disease Son No problems noted. Social History Smoking/Tobacco Use Status: Former Tobacco Use Quit Date: 07/16/91 Smoking risk assessment performed?: Yes Alcohol Intake: former Drug use: Never Substance use type: does not use Caregiver/Support person: No Household members: none Housing: house Communication Needs: None Do you need help understanding health information?: Never Pets and animals: No Do you think of yourself as: straight/heterosexual Current gender identity: female What is your relationship status?: How often do you talk on the phone with friends or family?: decline to answer How often do you get together with friends or relatives?: decline to answer How often do you attend catholic or presybeterian services?: decline to answer Do you belong to any clubs or organized social groups?: decline to answer Panel score (0-1 are the most socially isolated patients): 0 What type of physical activity do you participate in: none Frequency: does not exercise Laura/Yazdanism: Orthodox Special laura needs: No Seatbelt use: always 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 no wheezes, rales, rhonchi, or retractions Abd: soft, non-tender, non-distended, normal bowel sounds, no rebound or guarding, no peritoneal signs Musculoskeletal: Pain to palpation over mid thoracic and lumbar sacral vertebrae, pelvis stable, full range of motion of arms and legs, no tenderness to palpation. no clubbing, cyanosis, or edema Neurologic: GCS 15, cranial 2 through 12 intact, sensation intact, appropriate for age, strength normal Psych: alert and oriented speech normal, Skin:no petechiae, no lesions, warm and dry Course Vital Signs Vital signs: Vital Signs Temperature 36.3 C L 02/15/23 17:28 Pulse 105 H 02/15/23 17:28 Respiratory Rate 20 02/15/23 17:28 Blood Pressure 134/64 02/15/23 17:28 Pulse Oximetry 95 02/15/23 17:28 Temperature 36.3 C L 02/15/23 17:28 Pulse 105 H 02/15/23 17:28 Respiratory Rate 20 02/15/23 17:28 Respiratory Effort Normal 02/15/23 17:33 Blood Pressure 134/64 02/15/23 17:28 Blood Pressure Position Sitting 02/15/23 17:28 Pulse Oximetry 95 02/15/23 17:28 Oxygen Delivery Method Room Air 02/15/23 17:28 Oxygen Flow Rate 0 02/15/23 17:28 Pain Level 5 02/15/23 17:48 Sign Out Sign Out Data: Sign Out Comment: 82-year-old female presents for evaluation of back pain. She had a fall on Sunday without loss of consciousness. She has pain to her thoracic and lumbar sacral spine. There is some rib discomfort. Neurologically intact. Awaiting CT reports and reassessment. Last updated by Mohini Lindsey MD at 02/15/23 19:48
--- NOTE | 2023-02-15 18:57 | DI.CT_ITS ---
Exam(s) CT THORACIC LUMBAR SPINE REC EXAM: CT THORACIC LUMBAR SPINE REC CLINICAL HISTORY: trauma TECHNIQUE: COMPARISON: CT CT ABDOMEN PELVIS W from 05/24/[address] CHEST/ABD/PEL WO from 02/15/2023 FINDINGS: THORACIC SPINAL COLUMN: There is a compression fracture of T9 vertebral body with approximately 50 pe rcent height loss. probably subacute. there is no significant retropulsion of the posterior cortex at this level. There is no canal compromise evident at this level. No other vertebral fractures. N o facet malalignment. No acute compromise of the canal. LUMBOSACRAL SPINAL COLUMN: No evidence of acute fracture. Schmorl's node invagination at superior en dplate of L5 noted which was evident on abdominal CT scan of May 2021. There is mild degenerati ve anterolisthesis of L3 upon L4 again noted, also unchanged from 2020. Small Schmorl's node invagin ation of superior endplate of T12 is also unchanged from 202. There is multilevel facet arthropathy in the mid-lower lumbar spine. No facet malalignment. IMPRESSION: T9 compression fracture which is probably not acute (probably subacute). There is no significant retropulsion of the cortex at this level nor elsewhere in the thoracolumbar s pine. No canal compromise. Findings in the lumbar spine described above are unchanged from abdominal CT scan of May 2021.
[2023-02-15] MEDS: fentaNYL 100 MCG/2 ML VIAL 50 MCG IVP ×2 (19:15→20:00)
--- NOTE | 2023-02-15 19:36 | NUR.NOTE ---
This RN assumed care at this time, report received by [facility], introduced self to pt, IV started and pain meds given per request refer to SEP, pt sent to CT.
--- NOTE | 2023-02-15 19:56 | DI.VRAD_ITS ---
PROCEDURE INFORMATION: Exam: CT Chest Without Contrast; Diagnostic Exam date and time: 02/15/2023 7:34 PM Age: 82 years old Clinical indication: Injury or trauma; Fall; Generalized; Blunt trauma (contusions or hematomas); Injury details: Trauma, thoracic pain, lumbar pain TECHNIQUE: Imaging protocol: Diagnostic computed tomography of the chest without contrast. 3D rendering (Not supervised by radiologist): MIP and/or 3D reconstructed images were created by the technologist. Radiation optimization: All CT scans at this facility use at least one of these dose optimization techniques: automated exposure control; mA and/or kV adjustment per patient size (includes targeted exams where dose is matched to clinical indication); or iterative reconstruction. COMPARISON: CT HEAD CERVICAL SPINE WO 02/15/2023 7:30 PM FINDINGS: Lungs: 3 mm noncalcified nodule in the right middle lobe Calcified granuloma in the right middle lobe No consolidation. No masses. Pleural spaces: Unremarkable. No pneumothorax. No pleural effusion. Heart: Coronary calcifications No cardiomegaly. No pericardial effusion. Lymph nodes: Unremarkable. No enlarged lymph nodes. Vasculature: Unremarkable. No aortic aneurysm. Bones/joints: Age-indeterminate moderate compression fracture at T9 Soft tissues: Possible faint paraspinal/prevertebral hematoma at T9 IMPRESSION: Age-indeterminate moderate compression fracture at T9 without significant central canal stenosis new since the prior study. Minimal paraspinal hematoma. Findings may be subacute 3 mm right middle lobe nodule. Comparison with prior images would be helpful. Otherwise, chest CT follow-up within 12 months may be helpful PROCEDURE INFORMATION: Exam: CT Abdomen And Pelvis Without Contrast Exam date and time: 02/15/2023 7:34 PM Age: 82 years old Clinical indication: Injury or trauma; Fall; Generalized; Blunt trauma (contusions or hematomas); Injury details: Trauma, thoracic pain, lumbar pain TECHNIQUE: Imaging protocol: Computed tomography of the abdomen and pelvis without contrast. 3D rendering (Not supervised by radiologist): MIP and/or 3D reconstructed images were created by the technologist. Radiation optimization: All CT scans at this facility use at least one of these dose optimization techniques: automated exposure control; mA and/or kV adjustment per patient size (includes targeted exams where dose is matched to clinical indication); or iterative reconstruction. COMPARISON: CT ABDOMEN PELVIS W 05/24/2021 7:56 PM FINDINGS: Liver: Normal. No mass. Gallbladder and bile ducts: Normal. No calcified stones. No ductal dilation. Pancreas: Normal. No ductal dilation. Spleen: Normal. No splenomegaly. Adrenal glands: Normal. No mass. Kidneys and ureters: Right renal cyst No hydronephrosis. Stomach and bowel: Unremarkable. No obstruction. No mucosal thickening. Appendix: No evidence of appendicitis. Intraperitoneal space: Unremarkable. No free air. No significant fluid collection. Vasculature: Unremarkable. No abdominal aortic aneurysm. Lymph nodes: Unremarkable. No enlarged lymph nodes. Urinary bladder: Unremarkable as visualized. Reproductive: Unremarkable as visualized. Bones/joints: Degenerative changes in the lumbar spine No acute fracture. Right hip arthroplasty. Degenerative changes in the left hip with chronic ossicle noted Soft tissues: Unremarkable. IMPRESSION: No acute findings. Dictated and Authenticated by: Jabari Og MD. Ordering:JER Rajan MD
--- NOTE | 2023-02-15 19:57 | DI.VRAD_ITS ---
PROCEDURE INFORMATION: Exam: CT Thoracic Spine Without Contrast Exam date and time: 02/15/2023 7:34 PM Age: 82 years old Clinical indication: Injury or trauma; Fall; Blunt trauma (contusions or hematomas); Additional info: Trauma, thoracic pain, lumbar pain TECHNIQUE: Imaging protocol: Computed tomography of the thoracic spine without contrast. Radiation optimization: All CT scans at this facility use at least one of these dose optimization techniques: automated exposure control; mA and/or kV adjustment per patient size (includes targeted exams where dose is matched to clinical indication); or iterative reconstruction. COMPARISON: CT HEAD CERVICAL SPINE WO 02/15/2023 7:30 PM FINDINGS: Bones/joints: Moderate compression fracture at T9 of indeterminate age without significant central canal stenosis. Remainder of vertebral bodies grossly maintain height and alignment Soft tissues: Minimal paraspinal/prevertebral hematoma at T9 IMPRESSION: Age-indeterminate T9 moderate compression fracture which may be subacute. No significant central canal stenosis PROCEDURE INFORMATION: Exam: CT Lumbar Spine Without Contrast Exam date and time: 02/15/2023 7:34 PM Age: 82 years old Clinical indication: Injury or trauma; Fall; Blunt trauma (contusions or hematomas); Additional info: Trauma, thoracic pain, lumbar pain TECHNIQUE: Imaging protocol: Computed tomography of the lumbar spine without contrast. Radiation optimization: All CT scans at this facility use at least one of these dose optimization techniques: automated exposure control; mA and/or kV adjustment per patient size (includes targeted exams where dose is matched to clinical indication); or iterative reconstruction. COMPARISON: CT ABDOMEN PELVIS W 05/24/2021 7:56 PM FINDINGS: Bones/joints: No acute fracture. Anterolisthesis of L3 on L4 and L4 on L5 are presumed degenerative. No significant central canal or foraminal stenosis Soft tissues: Unremarkable. IMPRESSION: No acute findings. Dictated and Authenticated by: Jabari Og MD. Ordering:JER Rajan MD
--- NOTE | 2023-02-15 20:00 | DI.VRAD_ITS ---
PROCEDURE INFORMATION: Exam: CT Head Without Contrast Exam date and time: 02/15/2023 7:30 PM Age: 82 years old Clinical indication: Injury or trauma; Fall; Blunt trauma (contusions or hematomas) and concussion/head injury; Consciousness not specified TECHNIQUE: Imaging protocol: Computed tomography of the head without contrast. Radiation optimization: All CT scans at this facility use at least one of these dose optimization techniques: automated exposure control; mA and/or kV adjustment per patient size (includes targeted exams where dose is matched to clinical indication); or iterative reconstruction. COMPARISON: No relevant prior studies available. FINDINGS: Brain: Moderate volume loss No hemorrhage.Mild white matter disease No mass effect. Cerebral ventricles: No ventriculomegaly. Paranasal sinuses: Visualized sinuses are unremarkable. No fluid levels. Mastoid air cells: Visualized mastoid air cells are well aerated. Bones/joints: Unremarkable. No acute fracture. Soft tissues: Unremarkable. IMPRESSION: No acute intracranial hemorrhage PROCEDURE INFORMATION: Exam: CT Cervical Spine Without Contrast Exam date and time: 02/15/2023 7:30 PM Age: 82 years old Clinical indication: Injury or trauma; Fall; Blunt trauma (contusions or hematomas) and concussion/head injury; Consciousness not specified TECHNIQUE: Imaging protocol: Computed tomography of the cervical spine without contrast. Radiation optimization: All CT scans at this facility use at least one of these dose optimization techniques: automated exposure control; mA and/or kV adjustment per patient size (includes targeted exams where dose is matched to clinical indication); or iterative reconstruction. COMPARISON: No relevant prior studies available. FINDINGS: Bones/joints: No acute fracture. Loss of cervical lordosis is presumably on a degenerative basis.No significant disc bulge or herniation. No severe spinal canal stenosis. No significant neural foraminal narrowing. Lungs: Lung apices are grossly clear Soft tissues: Unremarkable. IMPRESSION: No acute findings. Dictated and Authenticated by: Jabari Og MD. Ordering:JER Rajan MD
--- NOTE | 2023-02-15 20:21 | W.EDPROG ---
Date of service: 02/15/23 Time of Service: 20:22 Medical Decision Making pt signed out to me pending CT imaging results, ct head/c spine negative, on ct chest/abd/pelvis and t/l spine CT has age indeterminate t 9 compression fx. Patient stable, feels well, her pain is in the lateral chest not midline so unclear if this compression fracture is acute. She is requesting d/c and she is stable for d/c at this time, advised to f/u with pcp, return precautions given. Sign Out Sign Out Data: Sign Out Comment: 82-year-old female presents for evaluation of back pain. She had a fall on Sunday without loss of consciousness. She has pain to her thoracic and lumbar sacral spine. There is some rib discomfort. Neurologically intact. Awaiting CT reports and reassessment. Last updated by Mohini Lindsey MD at 02/15/23 19:48 Discharge Plan Disposition Patient Disposition: Home Condition: Stable Discharge Details Clinical Impression: Back pain, Fall Primary Care Provider: Alma Scott ED Provider: Reji Saleem Home Meds and New Rx's Prescriptions: New ondansetron 4 mg tablet,disintegrating 4 mg PO Q8H PRN (Reason: nausea and vomiting) Qty: 30 0RF Continued melatonin 5 mg tablet 5 mg PO DAILY PRN ibuprofen 800 mg tablet 800 mg PO TID prednisolone acetate 1 % drops,suspension 1 drp ophthalmic (eye) 1XD levothyroxine [Synthroid] 150 mcg tablet 150 mcg PO QAM Discharge Instructions Instructions: Back Pain (ED) Additional Instructions: follow up with your primary care provider within 1 week if you feel more ill, have severe worsening pain or difficulty breathing return to the emergency department
[2023-02-15] MEDS: Ondansetron O.D.T. 4 MG TABEF, 3 TABS/BTL PO (20:41)
[2023-02-15] MEDS: Lidocaine 5% Patch 1 PATCH TP (20:45)
== END 2023-02-15 21:19 | disposition home or self-care (01) ==
PROVIDERS: Emergency Provider Emergency Medicine; PCP Nurse Practitioner Family
DX: M54.9 Dorsalgia, unspecified (principal); W19.XXXA Unspecified fall, initial encounter; S22.079A Unspecified fracture of T9-T10 vertebra, initial encounter for closed fracture
CPT/HCPCS: 71250; 96374; 96376; 99284; 70450; 72125; 74176; J3010

== ENCOUNTER 2023-05-28 13:19 | Outpatient (CLI) | payer MEDICARE, BC, SELFPAY ==
--- NOTE | 2023-05-28 13:15 | RT.EKG_ITS ---
APPROVED REPORT Exam: Resting ECG Reason for Exam: pre op Patient Location: O HR:80 bpm ECG Measurements Heart Rate 80 AXIS NV 155 P 63 QRSd 91 QRS 9 QT 394 T 42 QTc 455 Conclusion Sinus rhythm...normal P axis, V-rate 50- 99 Normal Electrocardiogram
== END 2023-05-28 13:20 | disposition home or self-care (01) ==
LOC: DI.CM 13:19
PROVIDERS: PCP Nurse Practitioner Family; Visit Provider Nurse Practitioner Family
DX: Z01.818 Encounter for other preprocedural examination (principal)
CPT/HCPCS: 93010

== ENCOUNTER 2023-06-08 21:45 | Outpatient (REF) | payer MEDICARE, BC, SELFPAY | END 2023-06-08 21:46 | disposition home or self-care (01) | LOC: LBN 21:45 | PROVIDERS: PCP Nurse Practitioner Family; Visit Provider Nurse Practitioner Family | DX: M54.9 Dorsalgia, unspecified (principal) | CPT/HCPCS: 87077; 87086; 87186 ==

== ENCOUNTER 2023-07-29 13:08 | Emergency (ER) | payer MEDICARE, BC, SELFPAY ==
[2023-07-29] VITALS (32 sets, daily range): BP systolic 120–148; BP diastolic 47–87; PULSE 83–119; RESP 5–21; TEMP 36.5; O2SAT 76–100
--- NOTE | 2023-07-29 13:30 | RT.EKG_ITS ---
APPROVED REPORT Exam: Resting ECG Reason for Exam: tachycardia Patient Location: E HR:88 bpm ECG Measurements Heart Rate 88 AXIS GA 144 P 57 QRSd 68 QRS 23 QT 360 T 40 QTc 435 Conclusion Sinus rhythm...normal P axis, V-rate 60- 99 Narrow complex normal sinus rhythm at a rate of 88. Normal axis. Intervals within normal limits. N o ST segment abnormalities. No T wave inversions. Mild T wave flattening in lead III. Appears aline lar to prior dated last year. No acute injury pattern.
[2023-07-29 14:21] LABS: Bilirubin Negative (Negative); Blood Small (Negative); Clarity Clear (Clear); Glucose Negative (Negative); Ketones Negative (Negative); Leukocyte Esterase Moderate (Negative); Nitrite Negative (Negative); Specific Gravity 1.025 (1.005-1.025); Urobilinogen 0.2 mg/dL (Up to 0.2)
[2023-07-29 14:48] LABS: Abs Immature Grans 0.02 10^3/uL (0.0-0.06); Absolute Basophil Count 0.08 10^3/uL (0.0-0.2); Absolute Eosinophil Count 0.18 10^3/uL (0.0-0.7); Absolute Lymphocyte Count 1.77 10^3/uL (1.2-3.4); Absolute Monocyte Count 0.91 10^3/uL (0.1-0.8); Absolute Neutrophil Count 6.95 10^3/uL (1.2-6.7); Basophils % 0.8; Eosinophils % 1.8; HCT 37.7 % (36.0-46.0); HGB 12.8 g/dL (11.2-15.7); Immature Grans % 0.2; Lymphocytes % 17.9; MCH 32.6 pg (27.0-33.0); MCV 96 fL (80-95); MPV 11.6 fL (8.0-11.0); Monocytes % 9.2; Neutrophils % 70.1; Platelet Count 233 10^3/uL (130-400); RBC 3.93 10^6/uL (3.93-5.22); RDW 12.8 % (11.7-14.6); RDW-SD 45.6 fL; WBC 9.91 10^3/uL (4.4-10.8)
--- NOTE | 2023-07-29 14:54 | ED.GENADUL_ITS ---
HPI <ROBINSON Petersen - Last Filed: 07/30/23 17:53> General Stated Complaint: Abd Prob ANIYA: 3 Date/Time Provider Initiated Documentation: 07/29/23 13:34. HPI Narrative: This 82-year-old female with history of protein S deficiency, hypothyroidism, chronic kidney disease, diverticulosis, breast cancer presents with report of left flank pain intermittently since the beginning of the summer. States it is typically worse with movement. States she had a kyphoplasty and a few days before her kyphoplasty she was to have a is wondering if it is her musculoskeletal pain. States she has had it daily and has not improved which is why she presents. Denies any dysuria or frequency. Denies any nausea or vomiting. Denies any strength or sensation changes to extremities. Denies fever or chills. Denies history of IV drug use. Related Data Home Medications Medication Instructions Recorded Confirmed levothyroxine 150 mcg tablet 150 mcg PO QAM 05/24/21 05/28/23 (Synthroid) melatonin 5 mg tablet 5 mg PO DAILY PRN 11/09/22 05/28/23 ondansetron 4 mg disintegrating 4 mg PO Q8H PRN nausea and 02/15/23 05/28/23 tablet vomiting #30 tabs prednisolone acetate 1 % eye 1 drp ophthalmic (eye) 1XD 02/15/23 05/28/23 drops,suspension calcitonin (salmon) 200 1 spray intranasal (ALT) DAILY 03/29/23 05/28/23 unit/actuation nasal spray #3.7 mL oxycodone 5 mg tablet 5 mg PO BID PRN pain #56 tabs 03/29/23 05/28/23 cyclobenzaprine 5 mg tablet 5 mg PO TID PRN back pain #30 tabs 06/22/23 ibuprofen 800 mg tablet 800 mg PO TID #90 tabs 07/29/23 Previous Rx's Medication Instructions Recorded ondansetron 4 mg disintegrating 4 mg PO Q8H PRN nausea and 02/15/23 tablet vomiting #30 tabs calcitonin (salmon) 200 1 spray intranasal (ALT) DAILY 03/29/23 unit/actuation nasal spray #3.7 mL oxycodone 5 mg tablet 5 mg PO BID PRN pain #56 tabs 03/29/23 cyclobenzaprine 5 mg tablet 5 mg PO TID PRN back pain #30 tabs 06/22/23 ibuprofen 800 mg tablet 800 mg PO TID #90 tabs 07/29/23 Allergies Allergy/AdvReac Type Severity Reaction Status Date / Time codeine Allergy Unknown Unverified 07/29/23 13:16 estrogens, conjugated Allergy Unknown Unverified 07/29/23 13:16 [From Premarin] levothyroxine sodium Allergy Unknown Unverified 07/29/23 13:16 [From Synthroid] meperidine [From Demerol] AdvReac Intermediate Nausea Unverified 07/29/23 13:16 morphine AdvReac Intermediate Nausea Unverified 07/29/23 13:16 [facility] <ROBINSON Petersen - Last Filed: 07/30/23 17:53> All Active Problems (Updated 07/29/23 @ 18:03 by Edilson Birch NP) Flank pain (Acute) Compression fracture of body of thoracic vertebra (Acute) Hypothyroidism (Chronic) Osteoporosis (Chronic) Protein S deficiency (Acute) Sialadenitis (Acute) Chronic kidney disease (Chronic) Dyspnea (Acute) deconditioned Vitamin D deficiency (Acute) takes supplement Diverticulosis (Acute) Presbyopia (Acute) Infiltrating lobular carcinoma of breast, stage 1 (Acute) Left breast Dr. Will, [facility] surgeon Medical History Breast lump or mass Dr. Will, [facility] surgeon Chronic osteomyelitis of jaw historical use of Premarin with protein s deficiency. Many surgeries in her history, has dental implants. Surgical History History of left cataract surgery (~07/18/14) History of right cataract surgery (~06/28/14) Hx of section Hx of colonoscopy 2001, 2016 Hx of removal of cyst (~1993) Hx of sinus surgery 1988, 2006, 08/2015, 01/2016 Hx of tonsillectomy Hx of wisdom tooth extraction (~1987) Family History Mother , 85 No problems noted. Father , 49 Heart disease Sister , 80 Breast cancer Brother , 55 Heart disease Son No problems noted. Social History Smoking/Tobacco Use Status: Former Tobacco Use Quit Date: 07/16/91 Smoking risk assessment performed?: Yes Alcohol Intake: former Drug use: Never Substance use type: does not use Caregiver/Support person: No Household members: none Housing: house Communication Needs: None Do you need help understanding health information?: Never Pets and animals: No Do you think of yourself as: straight/heterosexual Current gender identity: female What is your relationship status?: How often do you talk on the phone with friends or family?: decline to answer How often do you get together with friends or relatives?: decline to answer How often do you attend temple or islam services?: decline to answer Do you belong to any clubs or organized social groups?: decline to answer Panel score (0-1 are the most socially isolated patients): 0 What type of physical activity do you participate in: none Frequency: does not exercise Laura/Temple: [employer] Special laura needs: No Seatbelt use: always Drive intox or ride w/intox 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 Do you feel safe at home: Yes Do you feel safe in your relationship?: Yes Course <ROBINSON Petersen - Last Filed: 07/30/23 17:53> Vital Signs Vital signs: Vital Signs Temperature 36.5 C 07/29/23 13:11 Pulse 119 H 07/29/23 13:11 Respiratory Rate 16 07/29/23 13:11 Blood Pressure 148/87 H 07/29/23 13:11 Pulse Oximetry 100 07/29/23 13:11 Temperature 36.5 C 07/29/23 13:11 Pulse 90 07/29/23 13:43 Respiratory Rate 18 07/29/23 13:43 Respiratory Effort Normal, Non-Labored 07/29/23 13:43 Blood Pressure 148/87 H 07/29/23 13:11 Blood Pressure Position Supine 07/29/23 13:43 Pulse Oximetry 99 07/29/23 13:43 Oxygen Delivery Method Room Air 07/29/23 13:43 Oxygen Flow Rate 0 07/29/23 13:11 Pain Level 0 07/29/23 13:43 Lab/Test Results Lab/Test Results: Laboratory Tests Range/Units 07/29/23 07/29/23 14:02 14:40 WBC (4.4-10.8) 10^3/uL 9.91 RBC (3.93-5.22) 10^6/uL 3.93 Hgb (11.2-15.7) g/dL 12.8 Hct (36.0-46.0) % 37.7 MCV (80-95) fL 96 H MCH (27.0-33.0) pg 32.6 MCHC (32.0-36.0) % 34.0 RDW (11.7-14.6) % 12.8 Plt Count (130-400) 10^3/uL 233 MPV (8.0-11.0) fL 11.6 H Immature Gran % 0.2 Neutrophils % 70.1 Lymphocytes % 17.9 Monocytes % 9.2 Eosinophils % 1.8 Basophils % 0.8 Nucleated RBC % (0.0-0.3) % 0.0 Absolute Neutrophils (1.2-6.7) 10^3/uL 6.95 H Absolute Lymphocytes (1.2-3.4) 10^3/uL 1.77 Absolute Monocytes (0.1-0.8) 10^3/uL 0.91 H Absolute Eosinophils (0.0-0.7) 10^3/uL 0.18 Absolute Basophils (0.0-0.2) 10^3/uL 0.08 Urine Color (Yellow) Yellow Urine Clarity (Clear) Clear Urine pH (5-8) 6.0 Ur Specific Gillett (1.005-1.025) 1.025 Urine Protein (Negative) mg/dL 100 H Urine Ketones (Negative) mg/dL Negative Urine Blood (Negative) Small H Urine Nitrite (Negative) Negative Urine Bilirubin (Negative) Negative Urine Urobilinogen (Up to 0.2) mg/dL 0.2 Ur Leukocyte Esterase (Negative) Moderate H Urine Glucose (Negative) mg/dL Negative Medical Decision Making <ROBINSON Petersen - Last Filed: 07/30/23 17:53> 82-year-old female, alert and oriented x 4, cranial nerves II through XII intact Strength and sensation intact distally, reproducible tenderness in the left flank and left upper quadrant region, no rebound or guarding, no visible evidence of trauma Labs were ordered for further evaluation, pending chemistry at this time, CBC without acute abnormality, urinalysis, will need microanalysis, unable to supply sufficient urine for microanalysis, will give fluids and attempt to obtain repeat specimen with micro to determine whether or not possible UTI Pending CT abdomen and pelvis and lumbar spine at this time Declines analgesia, will take Tylenol as needed per patient Quality:[facility] Health Related Social Needs: No Data to Display <Edilson Birch NP - Last Filed: 07/29/23 22:40> 82-year-old female, alert and oriented x 4, cranial nerves II through XII intact Strength and sensation intact distally, reproducible tenderness in the left flank and left upper quadrant region, no rebound or guarding, no visible evidence of trauma Labs were ordered for further evaluation, pending chemistry at this time, CBC without acute abnormality, urinalysis, will need microanalysis, unable to supply sufficient urine for microanalysis, will give fluids and attempt to obtain repeat specimen with micro to determine whether or not possible UTI Pending CT abdomen and pelvis and lumbar spine at this time Declines analgesia, will take Tylenol as needed per patient 1600-patient signed out to me from ROBINSON Petersen. Patient pending CT imaging, completion of fluids, review of urinalysis and reassessment. Reviewed urinalysis and there are findings to suggest urinary tract infection. CT imaging shows no acute findings consistent with patient's pain. Patient's fluids did complete and patient was reassessed and did state some improvement of symptoms but not full resolution. Patient was given a lidocaine patch to see if this helped with pain and discomfort as she felt it was more ribs or muscular. Urinalysis showing some findings to suggest urinary tract infection although patient denies any symptoms. Will treat with fosfomycin given that patient is having left-sided flank pain so I question if this could be referred from UTI but given asymptomatic have less suspicion for pyelonephritis. Will have patient follow-up with primary care provider for reassessment or return for new or worsening symptoms. After discussion of diagnosis and plan of care patient has no further needs, questions, or concerns and states clear understanding to return to the emergency department for any worsening symptoms. This documentation was generated using [employer] system, please disregard any oddities of phrase or misspellings. Imaging Data Radiologic Study: Imaging: CT Scan Radiologist's impression: Exam(s) PROCEDURE INFORMATION: Exam: CT Abdomen And Pelvis With Contrast Exam date and time: 07/29/2023 4:02 PM Age: 82 years old Clinical indication: Other: Elevated lipase, UTI, flank, and ruq pain TECHNIQUE: Imaging protocol: Computed tomography of the abdomen and pelvis with contrast. Radiation optimization: All CT scans at this facility use at least one of these dose optimization techniques: automated exposure control; mA and/or kV adjustment per patient size (includes targeted exams where dose is matched to clinical indication); or iterative reconstruction. Contrast material: OMNI 350; Contrast volume: 80 ml; Contrast route: INTRAVENOUS (IV); COMPARISON: CT CHEST/ABD/PEL WO 02/15/2023 7:34 PM FINDINGS: Lungs: Mild bibasilar atelectasis. Liver: Normal. No mass. Gallbladder and bile ducts: Gallbladder contracted. Pancreas: Fatty replacement of the pancreatic head and neck are unchanged from previous study. Spleen: Small perisplenic low-density presumed subcapsular fluid density collection along the lateral aspect is not significantly changed from prior study allowing for technical differences. Adrenal glands: Normal. No mass. Kidneys and ureters: Right renal lower pole cyst again noted. Renal perfusion symmetric without hydronephrosis or hydroureter. Stomach and bowel: Extensive diverticulosis without evidence for acute diverticulitis. Appendix: No evidence of appendicitis. Intraperitoneal space: See Spleen finding. Vasculature: Severe atherosclerotic change again seen in the vasculature. Lymph nodes: Unremarkable. No enlarged lymph nodes. Urinary bladder: Unremarkable as visualized. Reproductive: Unremarkable as visualized. Bones/joints: Right hip prosthesis in place. Soft tissues: Unremarkable. IMPRESSION: No acute abnormality seen to account for symptoms. Nonacute changes as noted, stable. Dictated and Authenticated by: Barbara Wilson MD. Radiologic Study #2: Imaging: CT Scan Radiologist's impression: Exam(s) PROCEDURE INFORMATION: Exam: CT Lumbar Spine Without Contrast Exam date and time: 07/29/2023 4:02 PM Age: 82 years old Clinical indication: Other: Back pain TECHNIQUE: Imaging protocol: Computed tomography of the lumbar spine without contrast. Radiation optimization: All CT scans at this facility use at least one of these dose optimization techniques: automated exposure control; mA and/or kV adjustment per patient size (includes targeted exams where dose is matched to clinical indication); or iterative reconstruction. COMPARISON: CT THORACIC LUMBAR SPINE REC 02/15/2023 7:34 PM FINDINGS: Bones/joints: Spondylosis noted at the T9-10 level. Bone mineralization appears decreased. Right hip prosthesis noted. There is mild endplate compression at the L5 level on the right, possible asymmetric Schmorl's node. No acute cortical fracture noted. Vertebral body height is otherwise well preserved. Kidneys and ureters: Right renal cyst. Stomach and bowel: Diverticulosis without acute diverticulitis. Vasculature: Severe atherosclerotic change present in the vasculature. Soft tissues: Unremarkable. IMPRESSION: No acute abnormality evident. Spondylosis T9-T10. Mild loss of vertebral body height superior endplate right at L5, nonacute. Dictated and Authenticated by: Barbara Wilson MD. Lab Data Lab results reviewed: Yes I reviewed the patient's lab results. Sign Out <ROBINSON Petersen - Last Filed: 07/30/23 17:53> Sign Out Data: Sign Out Comment: pending fluids, ct, microanalysis of urine, and reassessment Last updated by Cornelia Anguiano PA at 07/29/23 15:53 Discharge Plan Disposition Patient Disposition: Home Discharge Details Clinical Impression: Flank pain Primary Care Provider: Alma Scott ED Provider: Edilson Birch Home Meds and New Rx's Prescriptions: Continued melatonin 5 mg tablet 5 mg PO DAILY PRN calcitonin (salmon) 200 unit/actuation spray,non-aerosol 1 spray intranasal (ALT) DAILY Qty: 3.7 0RF oxycodone 5 mg tablet 5 mg PO BID MDD 10 mg PRN (Reason: pain) Qty: 56 0RF cyclobenzaprine 5 mg tablet 5 mg PO TID PRN (Reason: back pain) Qty: 30 0RF Rx Instructions: Take 1 tablet by mouth three times a day as needed for back pain ibuprofen 800 mg tablet 800 mg PO TID Qty: 90 1RF prednisolone acetate 1 % drops,suspension 1 drp ophthalmic (eye) 1XD ondansetron 4 mg tablet,disintegrating 4 mg PO Q8H PRN (Reason: nausea and vomiting) Qty: 30 0RF levothyroxine [Synthroid] 150 mcg tablet 150 mcg PO QAM Discharge Instructions Instructions: Flank Pain (ED) Additional Instructions: At this time your CT imaging was unremarkable for any emergent findings. If you have any new or significant worsening of symptoms please return to the emergency department for reassessment. It is important to stay well-hydrated given your chronic kidney disease and that we performed a CAT scan with contrast today. Please follow-up with your primary care provider for reassessment and further testing or treatment as needed. Referrals: Amada Astudillo [Emergency Nurse] - 3 days (For reassessment) Discharge Data Discharge Date/Time-TO BE ENTERED AT DEPARTURE: 07/29/23 18:26
[2023-07-29 15:03] LABS: ALT 25 U/L (14-59); AST 22 U/L (15-37); Albumin 3.5 g/dL (3.4-5.0); Alkaline Phosphatase 101 U/L (46-116); Anion Gap 10.9 mmol/L (3-11); BUN 37 mg/dL (7-18); Bilirubin, Total 0.4 mg/dL (0.2-1.0); CO2 22.1 mmol/L (21.0-32.0); CREATININE 1.4 mg/dL (0.55-1.02); Calcium 9.5 mg/dL (8.5-10.1); Chloride 108 mmol/L (98-107); Glucose 110 mg/dL (74-106); Lipase 169 U/L (16-77); Potassium 4.9 mmol/L (3.5-5.1); Sodium 141 mmol/L (136-145); Total Protein 8.1 g/dL (6.4-8.2)
[2023-07-29] MEDS: Normal Saline 500 ML IV (15:05)
--- NOTE | 2023-07-29 15:30 | DI.CT_ITS ---
Exam(s) CT ABDOMEN PELVIS W EXAM: CT ABDOMEN PELVIS W CLINICAL HISTORY: elevated lipase, uti, flank and RUQ pain. TECHNIQUE: Imaging Protocol: Axial computed tomography images with coronal and sagittal reformatted images were created and reviewed CONTRAST MATERIAL: Intravenous: Omnipaque-350 100cc Oral: None COMPARISON: CT CT CHEST/ABD/PEL WO from 02/15/[address] THORACIC LUMBAR SPINE REC from 02/15/2023 FINDINGS: VISUALIZED LUNG BASES: No nodules nor pleural effusions evident. ABDOMEN: There is no ascites. LIVER: There are no focal hepatic lesions evident. No dilated intrahepatic ducts. GALLBLADDER/BILIARY: No obvious gallbladder pathology. CBD is not dilated. PANCREAS: No evidence of pancreatic mass nor dilatation of the pancreatic duct. SPLEEN: Spleen size is normal. There calcified splenic granulomas. There is subcapsular fluid in th e anterior lateral aspect of the spleen, more evident than previous. . The splenic and portal veins are patent. ADRENALS: There are no significant adrenal masses. KIDNEYS:There is a benign cyst in the inferior pole of the right kidney measuring 4.5 x 4.5 cm. Does not require further imaging workup. No other significant renal findings. No hydronephrosis. No hy droureter. No obvious abnormality in the urinary bladder although the bladder is partially obscured by beam hardening artifact from the right hip prosthesis.. ABDOMINAL AORTA: Calcified but not enlarged. The common iliac arteries are also calcified but not en larged. LYMPH NODES:There is no retroperitoneal nor paraaortic adenopathy. ABDOMINAL WALL: No evidence of significant anterior abdominal wall nor inguinal hernia. GI: There is no evidence of bowel obstruction, free air, nor abscess. PELVIS: GI: No evidence of appendicitis.Sigmoid diverticulosis without evidence of acute diverticulitis. LYMPH NODES: There is no intrapelvic nor inguinal adenopathy. REPRODUCTIVE: Uterus and adnexal regions unremarkable. No free fluid. URINARY BLADDER: As above. OSSEOUS: Right hip prosthesis. No fractures. No significant osseous lesions. IMPRESSION: 1. Subcapsular fluid along the lateral anterior aspect of the nonenlarged spleen is probably related to prior trauma-subcapsular hematoma. There are no overlying rib fractures. 2. Extensive sigmoid diverticulosis with no evidence of obvious acute diverticulitis. No evidence of appendicitis 3. There is a benign cyst in the lower pole of the right kidney measuring 4.5 x 4.5 cm. This is ment ioned in the impression because this patient apparently has right-sided pain and with no other abnorm alities on the right side. 4. There is no obvious acute gallbladder pathology but given the right-sided pain if clinically indic ated gallbladder ultrasound could be performed as this will sometimes reveal pathology not seen on CT scan in the gallbladder. RADIATION DOSE DELIVERED: 680.74mGy.cm Total DLP DATA REPOSITORY: All CT scans at this facility are submitted to the National Radiology Data Registry (NRDR) Dose Index Registry (DIR) with the [employer] (ACR). RADIATION OPTIMIZATION: All CT scans at this facility use at least one of these dose optimization te chniques: automated exposure control; mA and/or kV adjustment per patient size (includes targeted exa ms where dose is matched to clinical indication); or iterative reconstruction.
--- NOTE | 2023-07-29 15:30 | DI.CT_ITS ---
Exam(s) CT LUMBAR SPINE WO EXAM: CT LUMBAR SPINE WO CLINICAL HISTORY: back pain. TECHNIQUE: Imaging Protocol: Axial computed tomography images with coronal and sagittal reformatted images were created and reviewed COMPARISON: CT CT ABDOMEN PELVIS W from 07/29/2023 FINDINGS: Bones: There are no acute fractures. There is mild degenerative anterolisthesis of L3 upon L4 relat ed to facet arthropathy. No pars defects. There is mild concavity of the superior endplate of L5 wh ich is indented approximately 6 millimeters but no evidence of acute fracture at this level. Multile denisa facet arthropathy. No significant osseous lesions. PARASPINAL SOFT TISSUES: Benign cyst inferior pole right kidney noted. Does not require further work up. Right hip prosthesis noted. Advanced narrowing of the left hip joint noted. IMPRESSION: 1. No acute fractures. Other findings as above. 2. Multilevel facet arthropathy. Degenerative anterolisthesis of L3 upon L4-mild. RADIATION DOSE DELIVERED: 680.74mGy.cm Total DLP DATA REPOSITORY: All CT scans at this facility are submitted to the National Radiology Data Registry (NRDR) Dose Index Registry (DIR) with the [employer] (ACR). RADIATION OPTIMIZATION: All CT scans at this facility use at least one of these dose optimization te chniques: automated exposure control; mA and/or kV adjustment per patient size (includes targeted exa ms where dose is matched to clinical indication); or iterative reconstruction.
[2023-07-29] MEDS: Omnipaque 350 MG/ML 100 ML BTL IJ (16:04)
[2023-07-29 16:05] LABS: Epithelial Cells Few HPF (Negative); RBC 0-2 HPF (0-2)
[2023-07-29 16:06] LABS: Bacteria Negative HPF (Negative); C & S Indicated? Yes; Casts 0-2 Hyaline LPF (Negative); Crystals Negative HPF (Negative); Mucus Trace (Negative); Other Cells Rare Transitional (Negative)
--- NOTE | 2023-07-29 16:50 | DI.VRAD_ITS ---
PROCEDURE INFORMATION: Exam: CT Abdomen And Pelvis With Contrast Exam date and time: 07/29/2023 4:02 PM Age: 82 years old Clinical indication: Other: Elevated lipase, UTI, flank, and ruq pain TECHNIQUE: Imaging protocol: Computed tomography of the abdomen and pelvis with contrast. Radiation optimization: All CT scans at this facility use at least one of these dose optimization techniques: automated exposure control; mA and/or kV adjustment per patient size (includes targeted exams where dose is matched to clinical indication); or iterative reconstruction. Contrast material: OMNI 350; Contrast volume: 80 ml; Contrast route: INTRAVENOUS (IV); COMPARISON: CT CHEST/ABD/PEL WO 02/15/2023 7:34 PM FINDINGS: Lungs: Mild bibasilar atelectasis. Liver: Normal. No mass. Gallbladder and bile ducts: Gallbladder contracted. Pancreas: Fatty replacement of the pancreatic head and neck are unchanged from previous study. Spleen: Small perisplenic low-density presumed subcapsular fluid density collection along the lateral aspect is not significantly changed from prior study allowing for technical differences. Adrenal glands: Normal. No mass. Kidneys and ureters: Right renal lower pole cyst again noted. Renal perfusion symmetric without hydronephrosis or hydroureter. Stomach and bowel: Extensive diverticulosis without evidence for acute diverticulitis. Appendix: No evidence of appendicitis. Intraperitoneal space: See Spleen finding. Vasculature: Severe atherosclerotic change again seen in the vasculature. Lymph nodes: Unremarkable. No enlarged lymph nodes. Urinary bladder: Unremarkable as visualized. Reproductive: Unremarkable as visualized. Bones/joints: Right hip prosthesis in place. Soft tissues: Unremarkable. IMPRESSION: No acute abnormality seen to account for symptoms. Nonacute changes as noted, stable. Dictated and Authenticated by: Barbara Wilson MD. Ordering:ARASELI Locke MD
--- NOTE | 2023-07-29 16:55 | DI.VRAD_ITS ---
PROCEDURE INFORMATION: Exam: CT Lumbar Spine Without Contrast Exam date and time: 07/29/2023 4:02 PM Age: 82 years old Clinical indication: Other: Back pain TECHNIQUE: Imaging protocol: Computed tomography of the lumbar spine without contrast. Radiation optimization: All CT scans at this facility use at least one of these dose optimization techniques: automated exposure control; mA and/or kV adjustment per patient size (includes targeted exams where dose is matched to clinical indication); or iterative reconstruction. COMPARISON: CT THORACIC LUMBAR SPINE REC 02/15/2023 7:34 PM FINDINGS: Bones/joints: Spondylosis noted at the T9-10 level. Bone mineralization appears decreased. Right hip prosthesis noted. There is mild endplate compression at the L5 level on the right, possible asymmetric Schmorl's node. No acute cortical fracture noted. Vertebral body height is otherwise well preserved. Kidneys and ureters: Right renal cyst. Stomach and bowel: Diverticulosis without acute diverticulitis. Vasculature: Severe atherosclerotic change present in the vasculature. Soft tissues: Unremarkable. IMPRESSION: No acute abnormality evident. Spondylosis T9-T10. Mild loss of vertebral body height superior endplate right at L5, nonacute. Dictated and Authenticated by: Barbara Wilson MD. Ordering:ARASELI Locke MD
[2023-07-29 17:13] LABS: ALT 26 U/L (14-59); AST 16 U/L (15-37); Albumin 3.2 g/dL (3.4-5.0); Alkaline Phosphatase 101 U/L (46-116); Anion Gap 12.4 mmol/L (3-11); BUN 36 mg/dL (7-18); Bilirubin, Total 0.3 mg/dL (0.2-1.0); CO2 20.6 mmol/L (21.0-32.0); CREATININE 1.3 mg/dL (0.55-1.02); Calcium 8.9 mg/dL (8.5-10.1); Chloride 108 mmol/L (98-107); Estimated GFR 40.55 (mL/min/1.73m2); Glucose 100 mg/dL (74-106); Magnesium 2.1 mg/dL (1.8-2.4); Potassium 4.4 mmol/L (3.5-5.1); Sodium 141 mmol/L (136-145); Total Protein 7.4 g/dL (6.4-8.2); Troponin I < 50 ng/L (< or =60)
[2023-07-29] MEDS: Fosfomycin Tromethamine 3 GM PACKET PO (17:54)
[2023-07-29] MEDS: Lidocaine 5% Patch 1 PATCH TP (17:54)
== END 2023-07-29 18:26 | disposition home or self-care (01) ==
PROVIDERS: Emergency Medicine; Physician Assistant; Emergency Provider Nurse Practitioner Family; PCP Nurse Practitioner Family
DX: R10.9 Unspecified abdominal pain (principal); E03.9 Hypothyroidism, unspecified; D68.59 Other primary thrombophilia; N18.9 Chronic kidney disease, unspecified; Z85.3 Personal history of malignant neoplasm of breast; Z87.891 Personal history of nicotine dependence
CPT/HCPCS: 80053; 83690; 87077; 93005; 96360; 99285; 72131; 74177; 81003; 81015; 83735; 84484; 85025; 87086; 87186; 93010; 99284; J3490

== ENCOUNTER 2024-03-11 09:43 | Outpatient (CLI) | payer MEDICARE, BC, SELFPAY ==
--- NOTE | 2024-03-11 09:30 | RT.EKG_ITS ---
APPROVED REPORT Exam: Resting ECG Reason for Exam: pre-op Patient Location: O HR:83 bpm ECG Measurements Heart Rate 83 AXIS MN 138 P 59 QRSd 90 QRS 16 QT 387 T 55 QTc 455 Conclusion Sinus rhythm...normal P axis, V-rate 50- 99 Normal Electrocardiogram
== END 2024-03-11 09:44 | disposition home or self-care (01) ==
LOC: DI.CM 09:44
PROVIDERS: PCP Nurse Practitioner Family; Visit Provider Nurse Practitioner Family
DX: Z01.818 Encounter for other preprocedural examination (principal)
CPT/HCPCS: 93010; 81003

== ENCOUNTER 2024-03-11 17:50 | Outpatient (REF) | payer MEDICARE, BC, SELFPAY ==
[2024-03-11 17:00] LABS: Bilirubin Negative (Negative); Blood Negative (Negative); Clarity Sl Cloudy (Clear); Glucose Negative (Negative); Ketones Negative (Negative); Leukocyte Esterase Moderate (Negative); Nitrite Negative (Negative); Specific Gravity >= 1.030 (1.005-1.025); Urobilinogen 0.2 mg/dL (Up to 0.2); pH 5.5 (5-8)
[2024-03-11 17:12] LABS: Bacteria Negative HPF (Negative); C & S Indicated? Yes; Crystals Mod Calcium Oxalate HPF (Negative); Epithelial Cells Few HPF (Negative); Mucus Negative (Negative); Other Cells Rare Transitional (Negative); RBC Negative HPF (0-2)
== END 2024-03-11 17:51 | disposition home or self-care (01) ==
LOC: LBN 17:50
PROVIDERS: PCP Nurse Practitioner Family; Visit Provider Nurse Practitioner Family
DX: Z01.818 Encounter for other preprocedural examination (principal)
CPT/HCPCS: 81003; 81015; 87086

== ENCOUNTER 2024-03-26 22:13 | Outpatient (REF) | payer MEDICARE, BC, SELFPAY ==
[2024-03-26 23:04] LABS: COVID-19 PCR Negative (Negative); Influenza A PCR Negative (Negative); Influenza B PCR Negative (Negative); RSV PCR Negative (Negative)
[2024-03-26 23:06] LABS: Source Nasopharynx
== END 2024-03-26 22:14 | disposition home or self-care (01) ==
LOC: NCHCN 22:13
PROVIDERS: PCP Nurse Practitioner Family; Visit Provider Physician Assistant Medical
DX: R09.81 Nasal congestion (principal)
CPT/HCPCS: 87637

== ENCOUNTER 2024-04-25 17:49 | Emergency (ER) | payer MEDICARE, BC, SELFPAY ==
[2024-04-25] VITALS (50 sets, daily range): BP systolic 87–142; BP diastolic 50–69; PULSE 80–91; RESP 10–29; TEMP 37; O2SAT 89–100
--- NOTE | 2024-04-25 17:45 | RT.EKG_ITS ---
APPROVED REPORT Exam: Resting ECG Reason for Exam: rule out Patient Location: E HR:65 bpm ECG Measurements Heart Rate 65 AXIS VT 144 P 54 QRSd 89 QRS 27 QT 410 T 62 QTc 426 Conclusion Sinus rhythm...normal P axis, V-rate 60- 99 sinus rhythm, normal axis, normal intervals, non ischemic
--- NOTE | 2024-04-25 18:15 | DI.CT_ITS ---
Exam(s) CT THORAX ABD/PEL CTA EXAM: CT THORAX ABD/PEL CTA CLINICAL HISTORY: chest pain to back, nausea, vom, unequal pulse. TECHNIQUE: Imaging Protocol: Axial CT angiography was performed with multi-slice acquisition and m ulti-planar and/or 3D reconstructions. CONTRAST MATERIAL: Intravenous: Omnipaque 350 Contrast volume:70 Oral: / no COMPARISON: CT CT LUMBAR SPINE WO from 07/29/[address] ABDOMEN PELVIS W from 07/29/2023 FINDINGS: CHEST: Pulmonary Arteries: No evidence of filling defect to suggest pulmonary emboli. Tracheobronchial tree: Patent where visualized. Mediastinum and Wendy: No dominant adenopathy or fluid collection. Pulmonary parenchyma: No consolidation or dominant measurable mass. No architectural distortion. Pleura: No effusion or pneumothorax. Heart: The heart is moderately dilated, mainly left atrium.. Mild to moderate coronary artery calcif ications are seen. Aorta and branch vessels: Thoracic aorta non-dilated. Moderate atherosclerotic changes with some ir regular plaque. Heavy calcification at the proximal left subclavian artery with severe stenosis. No other areas of severe stenosis. Bones: Severe lower thoracic compression fracture with high density material consistent with prior ve rtebroplasty. Tubes, Catheters, and Lines: None ABDOMEN AND PELVIS: Abdomen: Celiac axis/mesenteric arteries: Severe stenosis proximal celiac axis. No change from prior. Focal severe stenosis at the origin of the SMA however the vessel is distally to this area well opacified. Renal Arteries: No evidence of occlusion or significant stenosis. There is a single renal artery per fusing each kidney. Aorta: No evidence of occlusion or significant stenosis. No aneurysm or dissection. Pelvis: Iliac Arteries: No evidence of occlusion or significant stenosis. Common Femoral Arteries: No evidence of occlusion or significant stenosis. ABDOMEN: Liver: Normal density. No measurable mass. Portal, Superior Mesenteric, and Splenic Veins: Unremarkable. Gallbladder and Biliary Tract: No radiodense calculus or dilation. Pancreas: Normal density, no abnormal calcifications or inflammatory process. Spleen: Normal. Adrenals: No masses seen. Kidneys: Normal size, contour and axis. No radiodense stones or obstructive uropathy. Stable cyst lo wer pole right kidney. No suspicious masses seen. Bowel: No obstruction or bowel wall thickening. Peritoneal Cavity: No ascites, collection or mesenteric inflammatory response. Lymph Nodes: Within normal limits. Bones: No acute fractures. Soft Tissues: Unremarkable. PELVIS: Bladder: Obscured by artifact Reproductive Organs: Obscured by artifact from hip prostheses Lymph Nodes: Within normal limits. Bones: Bilateral hip prostheses create artifact. IMPRESSION: Atherosclerotic changes throughout the aorta and branch vessels. 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 RADIATION DOSE DELIVERED: Total DLP DATA REPOSITORY: All CT scans at this facility are submitted to the National Radiology Data Registry (NRDR) Dose Index Registry (DIR) with the [employer] (ACR). RADIATION OPTIMIZATION: All CT scans at this facility use at least one of these dose optimization te chniques: automated exposure control; mA and/or kV adjustment per patient size (includes targeted exa ms where dose is matched to clinical indication); or iterative reconstruction.
[2024-04-25] MEDS: Normal Saline - Diluent 50 ML VIAL IJ (18:27)
[2024-04-25] MEDS: Omnipaque 350 MG/ML 100 ML BTL 70 ML IJ (18:28)
[2024-04-25 18:34] LABS: Abs Immature Grans 0.09 10^3/uL (0.0-0.06); Absolute Basophil Count 0.13 10^3/uL (0.0-0.2); Absolute Lymphocyte Count 2.39 10^3/uL (1.2-3.4); Absolute Neutrophil Count 13.65 10^3/uL (1.2-6.7); Basophils % 0.7 %; Eosinophils % 0.8 %; HCT 37.7 % (36.0-46.0); HGB 12.4 g/dL (11.2-15.7); Immature Grans % 0.5 %; Lymphocytes % 13.2 %; MCH 33.1 pg (27.0-33.0); MCHC 32.9 % (32.0-36.0); MCV 101 fL (80-95); MPV 11.5 fL (8.0-11.0); Monocytes % 9.5 %; Neutrophils % 75.3 %; Platelet Count 356 10^3/uL (130-400); RBC 3.75 10^6/uL (3.93-5.22); RDW 13.1 % (11.7-14.6); RDW-SD 48.4 fL; WBC 18.13 10^3/uL (4.4-10.8)
[2024-04-25 18:51] LABS: Absolute Eosinophil Count 0.15 10^3/uL (0.0-0.7); Absolute Monocyte Count 1.72 10^3/uL (0.1-0.8); Diff Comment Agrees w/ Instrument; RBC Morphology Normal
[2024-04-25 18:52] LABS: PTT Activated 23.1 sec (23.6-32.8); Prothrombin Time 10.4 sec (9.1-11.1)
[2024-04-25 19:15] LABS: ALT 148 U/L (14-59); AST 189 U/L (15-37); Albumin 3.7 g/dL (3.4-5.0); Alkaline Phosphatase 208 U/L (46-116); Anion Gap 17.9 mmol/L (3-11); BUN 40 mg/dL (7-18); Bilirubin, Total 0.89 mg/dL (0.2-1.0); CO2 18.1 mmol/L (21.0-32.0); CREATININE 1.7 mg/dL (0.55-1.02); Chloride 105 mmol/L (98-107); Estimated GFR 29.21 (mL/min/1.73m2); Glucose 129 mg/dL (74-106); Lipase 223 U/L (16-77); NT-proBNP 418 pg/mL (<300); Potassium 4.1 mmol/L (3.5-5.1); Sodium 141 mmol/L (136-145); Total Protein 9.1 g/dL (6.4-8.2); Troponin I 10 ng/L (<or=51)
[2024-04-25] MEDS: Ondansetron 4 MG/2 ML VIAL IVP (19:19)
[2024-04-25] MEDS: ACETAMINOPHEN 1,000 MG/100 ML BTL 400 MG (19:20)
[2024-04-25 19:21] LABS: Lactate 1.38 mmol/L (0.9-1.7)
[2024-04-25 19:21] LABS: Calcium 9.5 mg/dL (8.5-10.1)
[2024-04-25 19:42] LABS: Troponin I 8 ng/L (<or=51)
--- NOTE | 2024-04-25 19:46 | ED.GENADUL_ITS ---
Discharge Plan Disposition Patient Disposition: Transfer-Acute Inpatient Care Specific Acute Inpt Facility: [facility] Condition: Stable Discharge Details Chief Complaint: Abd Prob Clinical Impression: Transaminitis Primary Care Provider: Alma Scott ED Provider: Jose Luis Patrick Home Meds and New Rx's Prescriptions: No Action levothyroxine [Synthroid] 150 mcg tablet 150 mcg PO QAM Qty: 90 3RF ascorbic acid (vitamin C) 500 mg capsule 500 mg PO BID Rx Instructions: per Maegan discharge atropine sulfate (PF) 1 % drops 1 drp ophthalmic (eye) DAILY cyclosporine 0.05 % drops 1 drp ophthalmic (eye) Q12H diclofenac sodium 75 mg tablet,delayed release (DR/EC) 75 mg PO BID pantoprazole [Protonix] 40 mg tablet,delayed release (DR/EC) 40 mg PO DAILY sennosides 8.6 mg tablet 8.6 mg PO BID PRN acetaminophen [Tylenol] 325 mg tablet 650 mg PO Q4H PRN aspirin 81 mg tablet,chewable 81 mg PO BID Rx Instructions: stop 04/30 per Maegan discharge prednisolone acetate 1 % drops,suspension 1 drp ophthalmic (eye) TID HPI General Date/Time Provider Initiated Documentation: 04/25/24 18:00 . HPI Narrative: 83-year-old female presents with acute onset severe abdominal epigastric pain rating to her back associate with nausea and 1 episode of vomiting. Denies chest pain or shortness of breath denies lightheadedness palpitations presyncope Related Data Home Medications ?Medication ?Instructions ?Recorded ?Confirmed prednisolone acetate 1 % eye 1 drp ophthalmic (eye) TID 08/02/23 04/25/24 drops,suspension Synthroid 150 mcg tablet 150 mcg PO QAM #90 tabs 12/11/23 04/25/24 (levothyroxine) acetaminophen 325 mg tablet 650 mg PO Q4H PRN 04/23/24 04/25/24 (Tylenol) ascorbic acid (vitamin C) 500 mg 500 mg PO BID 04/23/24 04/25/24 capsule aspirin 81 mg chewable tablet 81 mg PO BID 04/23/24 04/25/24 atropine sulfate (PF) 1 % eye drops 1 drp ophthalmic (eye) DAILY 04/23/24 04/25/24 cyclosporine 0.05 % eye drops 1 drp ophthalmic (eye) Q12H 04/23/24 04/25/24 diclofenac sodium 75 mg 75 mg PO BID 04/23/24 04/25/24 tablet,delayed release pantoprazole 40 mg tablet,delayed 40 mg PO DAILY 04/23/24 04/25/24 release (Protonix) sennosides 8.6 mg tablet 8.6 mg PO BID PRN 04/23/24 04/25/24 Previous Rx's ?Medication ?Instructions ?Recorded Synthroid 150 mcg tablet 150 mcg PO QAM #90 tabs 12/11/23 (levothyroxine) Allergies Allergy/AdvReac Type Severity Reaction Status Date / Time codeine Allergy Unknown Unknown Unverified 04/25/24 19:03 estrogens, conjugated (From Allergy Unknown Unknown Unverified 04/25/24 19:03 Premarin) levothyroxine sodium (From Allergy Unknown Unknown Unverified 04/25/24 19:03 Synthroid) meperidine (From Demerol) AdvReac Intermediate Nausea Unverified 04/25/24 19:03 morphine AdvReac Intermediate Nausea Unverified 04/25/24 19:03 General Stated Complaint: Abd Prob ANIYA: 2 Exam Narrative Exam Narrative: Alert interactive resting comfortably Moist mucous membranes tolerate secretions Normal voice no stridor Lungs clear bilaterally no wheezes rales or rhonchi Normal heart sounds no murmurs rubs or gallops Strong equal radial pulses warm well-perfused extremities Some tenderness in the epigastrium without guarding or rebounding nondistended no palpable abdominal masses Alert moving all extremities with full strength and sensation normal speech no ataxia Course Vital Signs Vital signs: Vital Signs Temperature 37 C 04/25/24 17:52 Pulse 85 04/25/24 17:52 Respiratory Rate 18 04/25/24 17:52 Blood Pressure 110/59 L 04/25/24 17:52 Temperature 37 C 04/25/24 18:27 Temperature Source Oral 04/25/24 18:27 Pulse 81 04/25/24 19:31 Pulse 85 04/25/24 19:32 Respiratory Rate 24 04/25/24 19:32 Blood Pressure 118/61 04/25/24 19:31 Blood Pressure Mean 82 04/25/24 19:31 Pulse Oximetry 96 04/25/24 19:32 Oxygen Delivery Method Room Air 04/25/24 18:27 Pain Level 8 04/25/24 18:33 Lab/Test Results Lab/Test Results: Laboratory Tests Range/Units 04/25/24 04/25/24 18:10 19:11 WBC (4.4-10.8) 10^3/uL 18.13 H RBC (3.93-5.22) 10^6/uL 3.75 L Hgb (11.2-15.7) g/dL 12.4 Hct (36.0-46.0) % 37.7 MCV (80-95) fL 101 H MCH (27.0-33.0) pg 33.1 H MCHC (32.0-36.0) % 32.9 RDW (11.7-14.6) % 13.1 Plt Count (130-400) 10^3/uL 356 MPV (8.0-11.0) fL 11.5 H Immature Gran % % 0.5 Neutrophils % % 75.3 Lymphocytes % % 13.2 Monocytes % % 9.5 Eosinophils % % 0.8 Basophils % % 0.7 Nucleated RBC % (0.0-0.3) % 0.0 Absolute Neutrophils (1.2-6.7) 10^3/uL 13.65 H Absolute Lymphocytes (1.2-3.4) 10^3/uL 2.39 Absolute Monocytes (0.1-0.8) 10^3/uL 1.72 H Absolute Eosinophils (0.0-0.7) 10^3/uL 0.15 Absolute Basophils (0.0-0.2) 10^3/uL 0.13 RBC Morphology Normal PT (9.1-11.1) sec 10.4 INR (0.9-1.1) 1.0 APTT (23.6-32.8) sec 23.1 L VBG Lactate (0.9-1.7) mmol/L 1.38 Sodium (136-145) mmol/L 141 Potassium (3.5-5.1) mmol/L 4.1 Chloride (98-107) mmol/L 105 Carbon Dioxide (21.0-32.0) mmol/L 18.1 L Anion Gap (3-11) mmol/L 17.9 H BUN (7-18) mg/dL 40 H Creatinine (0.55-1.02) mg/dL 1.7 H Est GFR (CKD-EPI 2020) (mL/min/1.73m2) 29.21 Glucose (74-106) mg/dL 129 H Calcium (8.5-10.1) mg/dL 9.5 Total Bilirubin (0.2-1.0) mg/dL 0.89 AST (15-37) U/L 189 H ALT (14-59) U/L 148 H Alkaline Phosphatase (46-116) U/L 208 H Troponin I (<or=51) ng/L 10 8 NT-Pro-B Natriuret Pep (<300) pg/mL 418 H Total Protein (6.4-8.2) g/dL 9.1 H Albumin (3.4-5.0) g/dL 3.7 Lipase (16-77) U/L 223 H Medical Decision Making 83-year-old female presents with acute onset epigastric discomfort rating to her back associate with nausea and vomiting now resolved, alert oriented warm well- perfused equal radial pulses mentating normally, no respiratory distress, no peripheral edema, no signs of trauma, nonperitoneal abdominal examination no signs of pulsatile abdominal mass, however given her initial symptomatology must consider aortic dissection versus atypical ACS versus pancreatitis versus cholecystitis versus choledocholithiasis versus mesenteric ischemia versus abdominal aortic aneurysm low suspicion for PE pneumothorax or pneumonia lower suspicion for appendicitis colitis or urinary pathology. Stat CTA chest abdomen pelvis. Analgesia fluids antiemetics. 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 Despite normal intrahepatic ductal system no stone seen on CT still must consider choledocholithiasis versus early cholangitis. Have reached out to [facility] transfer center to discuss transferring for MRCP/GI evaluation as we will not have MRI available for 2 days and we do not have interventional GI capabilities here at this hospital. Patient given IV fentanyl for her continued discomfort. Lactate negative. Lower suspicion for mesenteric ischemia. Patient does have leukocytosis. 21: 11 discussed case with GI team at [facility] who agrees that MRCP would be beneficial per transfer center they do not do [id number] MRCP is on the weekend, they have suggested reaching out to inpatient hospitalist team to see if they would accept patient for admission and further GI workup. Awaiting to talk with hospitalist team. Discussed case with hospitalist Dr. Tejeda who is excepted patient for transfer for MRCP and further GI and vascular evaluation. Patient amenable to transfer. Currently hemodynamically stable Quality:SDOH Health Related Social Needs: No Data to Display [facility] All Active Problems (Updated 04/25/24 @ 23:29 by Jose Luis Patrick MD) Transaminitis (Acute) Compression fracture of body of thoracic vertebra (Acute) Hypothyroidism (Chronic) Osteoporosis (Chronic) Protein S deficiency (Acute) Sialadenitis (Acute) Chronic kidney disease (Chronic) Dyspnea (Acute) deconditioned Vitamin D deficiency (Acute) takes supplement Diverticulosis (Acute) Presbyopia (Acute) Infiltrating lobular carcinoma of breast, stage 1 (Acute) Left breast Dr. Will, [facility] surgeon Medical History Breast lump or mass Dr. Will, [facility] surgeon Chronic osteomyelitis of jaw historical use of Premarin with protein s deficiency. Many surgeries in her history, has dental implants. Surgical History History of left cataract surgery (~07/18/14) History of right cataract surgery (~06/28/14) Hx of section Hx of colonoscopy 2001, 2016 Hx of removal of cyst (~1993) Hx of sinus surgery 1988, 2006, 08/2015, 01/2016 Hx of tonsillectomy Hx of wisdom tooth extraction (~1987) Family History Mother , 85 No problems noted. Father , 49 Heart disease Sister , 80 Breast cancer Brother , 55 Heart disease Son No problems noted. Social History (Updated 12/28/23 @ 12:24 by Roseline Kilpatrick) Smoking/Tobacco Use Status: Former Tobacco Use tobacco type: cigarettes Quit Date: 07/16/93 Quit status: quit date established Second Hand Exposure: Yes Smoking risk assessment performed?: Yes Alcohol Intake: former Drug use: Never Substance use type: does not use Counseling given: No Caregiver/Support person: No Household members: none Housing: house Communication Needs: None Education Level: college Details: associate degree Do you need help understanding health information?: Never Pets and animals: No Sexually active: No Do you think of yourself as: straight/heterosexual Current gender identity: female What is your relationship status?: How often do you talk on the phone with friends or family?: three or more times per week How often do you get together with friends or relatives?: decline to answer How often do you attend taoism or mormon services?: decline to answer Do you belong to any clubs or organized social groups?: decline to answer Panel score (0-1 are the most socially isolated patients): 1 What type of physical activity do you participate in: none Frequency: does not exercise Laura/Quaker: Uatsdin Special laura needs: No Seatbelt use: always Drive intox or ride w/intox cdl company flatbed driver: No Do you feel safe at home: Yes Do you feel safe in your relationship?: Yes
[2024-04-25 20:26] LABS: Bilirubin Negative (Negative); Blood Negative (Negative); Clarity Clear (Clear); Glucose Negative (Negative); Ketones Negative (Negative); Leukocyte Esterase Trace (Negative); Nitrite Negative (Negative); Specific Gravity 1.015 (1.005-1.025); Urobilinogen 0.2 mg/dL (Up to 0.2); pH 5.5 (5-8)
[2024-04-25] MEDS: fentaNYL 100 MCG/2 ML VIAL 25 MCG IVP (20:27)
[2024-04-25 20:31] LABS: Bacteria Few HPF (Negative); C & S Indicated? No/Sq. Contamination; Casts Negative LPF (Negative); Crystals Negative HPF (Negative); Epithelial Cells Moderate HPF (Negative); Mucus Negative (Negative); RBC 0-2 HPF (0-2)
[2024-04-26] VITALS (54 sets, daily range): BP systolic 73–113; BP diastolic 48–62; PULSE 73–89; RESP 10–21; O2SAT 90–99
[2024-04-26] MEDS: fentaNYL 100 MCG/2 ML VIAL (05:16)
--- NOTE | 2024-04-26 06:42 | ED.PROG_ITS ---
Date of service: 04/26/24 Time of Service: 06:43 Medical Decision Making Patient remains in the ED overnight awaiting availability of transport in the morning, accepted to [facility] for ERCP for possible choledocolithiasis. BP softer in the early am hours, MAPS consistently remain greater than 65 with a few episodes of documented hypotension (unclear how accurate pressures are as no one in the room at time, vitals pulled off monitor from automatic cuff). Prior ED course reviewed, patient has been receiving fentanyl for her abdominal pain which may be contributing. On my assessment at 0635 patient is alert and mentating well, remains afebrile, not suggestive of cholangitis. Will give 1L IVFB and repeat CMP, anticipate transport shortly. [facility] updated. Quality:[facility] Health Related Social Needs: No Data to Display Discharge Plan Disposition Patient Disposition: Transfer-Acute Inpatient Care Specific Acute Inpt Facility: [facility] Condition: Stable Discharge Details Clinical Impression: Transaminitis Primary Care Provider: Alma Scott ED Provider: Jose Luis Patrick Home Meds and New Rx's Prescriptions: No Action levothyroxine [Synthroid] 150 mcg tablet 150 mcg PO QAM Qty: 90 3RF ascorbic acid (vitamin C) 500 mg capsule 500 mg PO BID Rx Instructions: per Maegan discharge atropine sulfate (PF) 1 % drops 1 drp ophthalmic (eye) DAILY cyclosporine 0.05 % drops 1 drp ophthalmic (eye) Q12H diclofenac sodium 75 mg tablet,delayed release (DR/EC) 75 mg PO BID pantoprazole [Protonix] 40 mg tablet,delayed release (DR/EC) 40 mg PO DAILY sennosides 8.6 mg tablet 8.6 mg PO BID PRN acetaminophen [Tylenol] 325 mg tablet 650 mg PO Q4H PRN aspirin 81 mg tablet,chewable 81 mg PO BID Rx Instructions: stop 04/30 per Maegan discharge prednisolone acetate 1 % drops,suspension 1 drp ophthalmic (eye) TID
[2024-04-26] MEDS: Normal Saline 1,000 ML 1000 ML IV (07:34)
[2024-04-26 07:43] LABS: ALT 413 U/L (14-59); AST 266 U/L (15-37); Albumin 3.1 g/dL (3.4-5.0); Alkaline Phosphatase 203 U/L (46-116); Anion Gap 11.2 mmol/L (3-11); BUN 33 mg/dL (7-18); CO2 22.8 mmol/L (21.0-32.0); CREATININE 1.4 mg/dL (0.55-1.02); Calcium 8.9 mg/dL (8.5-10.1); Chloride 108 mmol/L (98-107); Estimated GFR 36.87 (mL/min/1.73m2); Glucose 91 mg/dL (74-106); Potassium 4.3 mmol/L (3.5-5.1); Sodium 142 mmol/L (136-145); Total Protein 7.9 g/dL (6.4-8.2)
== END 2024-04-26 07:30 | disposition short-term general hospital (02) ==
PROVIDERS: Student in an Organized Health Care Education/Training Program; Emergency Provider Emergency Medicine; PCP Nurse Practitioner Family
DX: R74.01 Elevation of levels of liver transaminase levels (principal); R10.13 Epigastric pain; R11.2 Nausea with vomiting, unspecified; I77.4 Celiac artery compression syndrome
CPT/HCPCS: 00123; 71275; 80053; 83690; 86850; 86900; 86901; 93005; 96361; 96374; 96375; 99285; 74174; 81003; 81015; 83605; 83880; 84484; 85025; 85610; 85730; 93010; 99284; J0131; J2405; J3010; J3490

== ENCOUNTER 2024-12-31 14:19 | Outpatient (REF) | payer MEDICARE, BC, SELFPAY ==
[2024-12-31 21:06] LABS: HCT 36.2 % (36.0-46.0); HGB 12.1 g/dL (11.2-15.7); MCH 33.2 pg (27.0-33.0); MCHC 33.4 % (32.0-36.0); MCV 99 fL (80-95); MPV 12.2 fL (8.0-11.0); Platelet Count 201 10^3/uL (130-400); RBC 3.65 10^6/uL (3.93-5.22); RDW 12.7 % (11.7-14.6); RDW-SD 46.5 fL; WBC 7.21 10^3/uL (4.4-10.8)
== END 2024-12-31 14:20 | disposition home or self-care (01) ==
LOC: LBN 14:19
PROVIDERS: PCP Nurse Practitioner Family; Visit Provider Nurse Practitioner Family
DX: E03.9 Hypothyroidism, unspecified (principal)
CPT/HCPCS: 80053; 80061; 85027; 84443

== ENCOUNTER 2025-01-21 00:44 | Inpatient (IN) | payer MEDICARE, BC, SELFPAY ==
[2025-01-21] VITALS (106 sets, daily range): BP systolic 56–179; BP diastolic 34–165; PULSE 55–95; RESP 11–38; TEMP 36.2–36.8; O2SAT 90–100
--- NOTE | 2025-01-21 | DI.US_ITS ---
Exam(s) US EXTREMITY VENOUS BI EXAM: US EXTREMITY VENOUS BI CLINICAL HISTORY: new PE. TECHNIQUE: Bilateral lower extremity venous ultrasound performed using grayscale, color-flow, and spectral Doppler analysis. COMPARISON: No exams were available for comparison FINDINGS: The right common femoral vein, for fundal femoral vein and proximal to mid portions of the superficial femoral vein are free of thrombus. There is thrombus visible from the distal portion of the superficial femoral vein through the paired posterior tibial veins. The saphenous vein is free of thrombus. The left common femoral, femoral and popliteal veins demonstrate normal compressibility, augmentation, and color Doppler. The posterior tibial and peroneal veins are patent. IMPRESSION: Right: Deep venous thrombosis from the distal superficial femoral vein through the posterior tibial veins. Left: Negative for DVT DATA REPOSITORY:
--- NOTE | 2025-01-21 00:45 | DI.CT_ITS ---
Exam(s) CT THORAX ABD/PEL CTA EXAM: CT THORAX ABD/PEL CTA CLINICAL HISTORY: eval for aortic dissection. TECHNIQUE: Imaging Protocol: Axial CT angiography was performed with multi- slice acquisition and multi-planar and/or 3D reconstructions. Computer aided detection (CAD) was utilized. CONTRAST MATERIAL: Intravenous: Omnipaque 350 Contrast volume:100 ml Intravenous: Omnipaque 350 Contrast volume:59 mL COMPARISON: CT CT THORAX ABD/PEL CTA from 04/25/2024 FINDINGS: CHEST: Pulmonary Arteries: Pulmonary arteries are suboptimally opacified as this exam was performed as a CTA. There are small small emboli noted in upper and lower lobe branches. Tracheobronchial tree: No bronchiectasis or mucus plugging. Mediastinum and Wendy: No dominant adenopathy or fluid collection. Pulmonary parenchyma: No consolidation or dominant measurable mass. Pleura: No effusion. No pneumothorax. Heart: The heart is notdilated. coronary artery calcifications are seen. No evidence of right heart strain. Aorta: Thoracic aorta non-dilated. Bones: Stable compression fractures of T8 and T9 with vertebroplasty material. Tubes, Catheters, and Lines: None. Soft tissues: Unremarkable. ABDOMEN and PELVIS: Liver: Normal size. Normal density. No suspicious measurable mass. Portal, Superior Mesenteric, and Splenic Veins: Unremarkable. Gallbladder and Biliary Tract: No cholecystectomy. No biliary dilatation. Pancreas: Normal density, no abnormal calcifications or inflammatory process. Spleen: Normal. Adrenals: No masses seen. Kidneys: Mild cortical thinning. Cyst again noted at the lower pole of the right kidney. No radiodense stones. No obstructive uropathy. No masses seen. Vasculature: Abdominal aorta non-dilated. Heavily calcified. Common iliac are also heavily calcified. Calcification at the femoral arteries somewhat obscured by artifact. Occlusion of the celiac axis at the distal reconstitution. Mild narrowing at the origin of the SMA. Bowel: No obstruction or bowel wall thickening. Appendix is unremarkable. Sigmoid diverticulosis. Peritoneal Cavity: No ascites, collection or mesenteric inflammatory response. Lymph Nodes: Within normal limits. Soft Tissues: Unremarkable. Bladder: Somewhat obscured by artifact. Reproductive Organs: Unremarkable as visualized. Bones: Bilateral hip prostheses. IMPRESSION: 1. Small right-sided pulmonary artery branch emboli. No heart strain 2. No acute abdominal or pelvic process. Severe atherosclerotic changes of the aorta without evidence of aneurysm or dissection. Occlusion at the celiac axis again noted. RADIATION DOSE DELIVERED: 391.48mGy.cm Total DLP 391.48mGy.cm Total DLP DATA REPOSITORY: All CT scans at this facility are submitted to the National Radiology Data Registry (NRDR) Dose Index Registry (DIR) with the [employer] (ACR). RADIATION OPTIMIZATION: All CT scans at this facility use at least one of these dose optimization techniques: automated exposure control; mA and/or kV adjustment per patient size (includes targeted exams where dose is matched to clinical indication); or iterative reconstruction.
--- NOTE | 2025-01-21 00:45 | RT.EKG_ITS ---
APPROVED REPORT Exam: Resting ECG Reason for Exam: epigastric pain Patient Location: E HR:85 bpm ECG Measurements Heart Rate 85 AXIS IL 63 P -86 QRSd 77 QRS 28 QT 417 T 46 QTc 496 Conclusion Sinus or ectopic atrial rhythm...P axis (-45,135) no ST segment or T wave abnormalities to suggest occlusive [place]
[2025-01-21 00:58] LABS: BE (Venous) -6 mmol/L (-2-3); HCO3 (Venous) 20 mmol/L (23-28); O2 Sat (Venous) 42 %; TCO2 (Venous) 18 mmol/L (24-29); pCO2 (Venous) 39 mmHg (41-51); pO2 (Venous) 25 mmHg
[2025-01-21 01:01] LABS: Abs Immature Grans 0.05 10^3/uL (0.0-0.06); HCT 40.2 % (36.0-46.0); HGB 13.6 g/dL (11.2-15.7); Immature Grans % 0.4 %; MCH 33.4 pg (27.0-33.0); MCHC 33.8 % (32.0-36.0); MCV 99 fL (80-95); MPV 11.6 fL (8.0-11.0); Platelet Count 158 10^3/uL (130-400); RBC 4.07 10^6/uL (3.93-5.22); RDW 12.3 % (11.7-14.6); RDW-SD 44.6 fL; WBC 12.98 10^3/uL (4.4-10.8)
[2025-01-21 01:16] LABS: INR 1.1 (0.9-1.1); PTT Activated 25.4 sec (20.6-30.2); Prothrombin Time 10.7 sec (9.1-11.1)
[2025-01-21 01:21] LABS: ALT 28 U/L (14-59); AST 19 U/L (15-37); Albumin 4.0 g/dL (3.4-5.0); Alkaline Phosphatase 139 U/L (46-116); Anion Gap 12.9 mmol/L (3-11); BUN 31 mg/dL (7-18); Bilirubin, Total 0.7 mg/dL (0.2-1.0); CO2 21.1 mmol/L (21.0-32.0); Calcium 9.4 mg/dL (8.5-10.1); Chloride 103 mmol/L (98-107); Estimated GFR 29.02 (mL/min/1.73m2); Glucose 121 mg/dL (74-106); Lipase 45 U/L (<78); Magnesium 2.2 mg/dL (1.8-2.4); Potassium 3.7 mmol/L (3.5-5.1); Sodium 137 mmol/L (136-145); Total Protein 8.9 g/dL (6.4-8.2)
[2025-01-21 01:25] LABS: Troponin I 69 ng/L (<or=51)
--- NOTE | 2025-01-21 01:27 | W.ED.GENAD ---
Discharge Plan Disposition Patient Disposition: Admit to [facility] Condition: Critical Discharge Details Clinical Impression: Pulmonary embolism, Heart failure Primary Care Provider: Alma Scott ED Provider: Pattie Mccall Home Meds and New Rx's Prescriptions: No Action sennosides-docusate sodium [Senna with Docusate Sodium] 8.6-50 mg tablet 2 tab-cap PO BID dorzolamide-timolol 22.3-6.8 mg/mL drops 1 drp ophthalmic (eye) BID Patient Comments: INSTILL 1 DROP INTO THE LEFT EYE TWICE DAILY brimonidine 0.2 % drops 1 drp ophthalmic (eye) TID Patient Comments: INSTILL 1 DROP INTO THE LEFT EYE 3 TIMES DAILY latanoprost 0.005 % drops 1 drp ophthalmic (eye) HS Patient Comments: INSTILL 1 DROP INTO THE LEFT EYE AT BEDTIME amoxicillin-pot clavulanate 875-125 mg tablet 1 tab PO Q12H Qty: 14 0RF Rx Instructions: Take 1 tablet twice a day for 7 days ascorbic acid (vitamin C) 500 mg capsule 500 mg PO BID Rx Instructions: per Maegan discharge atropine sulfate (PF) 1 % drops 1 drp ophthalmic (eye) DAILY cyclosporine 0.05 % drops 1 drp ophthalmic (eye) Q12H diclofenac sodium 75 mg tablet,delayed release (DR/EC) 75 mg PO BID sennosides 8.6 mg tablet 8.6 mg PO BID PRN acetaminophen [Tylenol] 325 mg tablet 650 mg PO Q4H PRN aspirin 81 mg tablet,chewable 81 mg PO BID Rx Instructions: stop 04/30 per Maegan discharge levothyroxine [Synthroid] 150 mcg tablet 150 mcg PO QAM Qty: 90 3RF escitalopram oxalate [Lexapro] 5 mg tablet 5 mg PO DAILY Qty: 90 1RF prednisolone acetate 1 % drops,suspension 1 drp ophthalmic (eye) TID HPI General Mode of arrival: EMS. Date/Time Provider Initiated Documentation: 01/21/25 00:49. Limitations to Documentation: no limitations. Information obtained by: patient and old records reviewed. HPI Narrative: 84yo F with hx breast cancer, CKD,protein S deficiency,SMA stenosis, presenting for upper abdominal pain x 12-24 hours. Does not remember what she was doing when it started. Pain is dull, constant, and worsening, now keeping her awake. Has not taken anything for pain. No nausea, vomiting, diarrhea, or constipation. Last BM yesterday, normal, non-bloody. Has never had pain like this before. No chest pain, back pain, shortness of breath,or LE edema. Otherwise in her usual state of health with no fevers, chills, rash, dysuria, hematuria, lightheadedness, numbness, weakness, or other concerns. Related Data Home Medications ?Medication ?Instructions ?Recorded ?Confirmed prednisolone acetate 1 % eye 1 drp ophthalmic (eye) TID 08/02/23 01/21/25 drops,suspension acetaminophen 325 mg tablet 650 mg PO Q4H PRN 04/23/24 01/21/25 (Tylenol) ascorbic acid (vitamin C) 500 mg 500 mg PO BID 04/23/24 01/21/25 capsule aspirin 81 mg chewable tablet 81 mg PO BID 04/23/24 01/21/25 atropine sulfate (PF) 1 % eye drops 1 drp ophthalmic (eye) DAILY 04/23/24 01/21/25 cyclosporine 0.05 % eye drops 1 drp ophthalmic (eye) Q12H 04/23/24 12/31/24 diclofenac sodium 75 mg 75 mg PO BID 04/23/24 01/21/25 tablet,delayed release sennosides 8.6 mg tablet 8.6 mg PO BID PRN 04/23/24 01/21/25 sennosides 8.6 mg-docusate sodium 2 tab-cap PO BID 05/02/24 01/21/25 50 mg tablet (Senna with Docusate Sodium) Synthroid 150 mcg tablet 150 mcg PO QAM #90 tabs 11/19/24 01/21/25 (levothyroxine) amoxicillin 875 mg-potassium 1 tab PO Q12H #14 tabs 12/23/24 01/21/25 clavulanate 125 mg tablet Held on 01/21/25. Instructions: Prescription Finished brimonidine 0.2 % eye drops 1 drp ophthalmic (eye) TID 12/23/24 01/21/25 dorzolamide 22.3 mg-timolol 6.8 1 drp ophthalmic (eye) BID 12/23/24 01/21/25 mg/mL eye drops latanoprost 0.005 % eye drops 1 drp ophthalmic (eye) HS 12/23/24 01/21/25 escitalopram oxalate 5 mg tablet 5 mg PO DAILY #90 tabs 12/25/24 01/21/25 (Lexapro) Previous Rx's ?Medication ?Instructions ?Recorded Synthroid 150 mcg tablet 150 mcg PO QAM #90 tabs 11/19/24 (levothyroxine) amoxicillin 875 mg-potassium 1 tab PO Q12H #14 tabs 12/23/24 clavulanate 125 mg tablet Held on 01/21/25. Instructions: Prescription Finished escitalopram oxalate 5 mg tablet 5 mg PO DAILY #90 tabs 12/25/24 (Lexapro) Allergies Allergy/AdvReac Type Severity Reaction Status Date / Time codeine Allergy Unknown Unknown Unverified 01/21/25 00:50 estrogens, conjugated (From Allergy Unknown Unknown Unverified 01/21/25 00:50 Premarin) levothyroxine sodium (From Allergy Unknown Unknown Unverified 01/21/25 00:50 Synthroid) meperidine (From Demerol) AdvReac Intermediate Nausea Unverified 01/21/25 00:50 morphine AdvReac Intermediate Nausea Unverified 01/21/25 00:50 General Stated Complaint: Abd Prob ANIYA: 3 Review of Systems Narrative: see HPI Exam Narrative Exam Narrative: General: Alert, non-toxic Head: Normocephalic, atraumatic Neck: Trachea midline, ?Neck supple. ENT: ?MMM.? Cardiac: ?RRR, no murmurs appreciated Resp: No respiratory distress. CTAB. Abd: ?Soft, non-distended, mildly TTP of epigastrium : ?No suprapubic tenderness. No CVA tenderness. Extremities: ?No deformities.? No peripheral edema. Neurologic: GCS 15. ? Moves all extremities freely against gravity Course Vital Signs Vital signs: Vital Signs Temperature 36.4 C 01/21/25 00:44 Pulse 91 H 01/21/25 00:44 Respiratory Rate 18 01/21/25 00:44 Pulse Oximetry 98 01/21/25 00:44 Temperature 36.4 C 01/21/25 00:44 Temperature Source Oral 01/21/25 00:44 Pulse 91 H 01/21/25 00:44 Respiratory Rate 18 01/21/25 00:44 Pulse Oximetry 98 01/21/25 00:44 Oxygen Delivery Method Room Air 01/21/25 00:44 Oxygen Flow Rate 0 01/21/25 00:44 Lab/Test Results Lab/Test Results: Laboratory Tests Range/Units 01/21/25 00:54 WBC (4.4-10.8) 10^3/uL 12.98 H RBC (3.93-5.22) 10^6/uL 4.07 Hgb (11.2-15.7) g/dL 13.6 Hct (36.0-46.0) % 40.2 MCV (80-95) fL 99 H MCH (27.0-33.0) pg 33.4 H MCHC (32.0-36.0) % 33.8 RDW (11.7-14.6) % 12.3 Plt Count (130-400) 10^3/uL 158 MPV (8.0-11.0) fL 11.6 H Immature Gran % % 0.4 Neutrophils % % 75.0 Lymphocytes % % 16.1 Monocytes % % 7.7 Eosinophils % % 0.2 Basophils % % 0.6 Nucleated RBC % (0.0-0.3) % 0.0 Absolute Neutrophils (1.2-6.7) 10^3/uL 9.74 H Absolute Lymphocytes (1.2-3.4) 10^3/uL 2.09 Absolute Monocytes (0.1-0.8) 10^3/uL 1.00 H Absolute Eosinophils (0.0-0.7) 10^3/uL 0.03 Absolute Basophils (0.0-0.2) 10^3/uL 0.08 PT (9.1-11.1) sec 10.7 INR (0.9-1.1) 1.1 APTT (20.6-30.2) sec 25.4 VBG pH (7.31-7.41) 7.32 VBG pCO2 (41-51) mmHg 39 L VBG pO2 mmHg 25 VBG HCO3 (23-28) mmol/L 20 L VBG Total CO2 (24-29) mmol/L 18 L VBG O2 Saturation % 42 VBG Base Excess (-2-3) mmol/L -6 L VBG Lactate (<or=2.0) mmol/L 2.6 H* Sodium (136-145) mmol/L 137 Potassium (3.5-5.1) mmol/L 3.7 Chloride (98-107) mmol/L 103 Carbon Dioxide (21.0-32.0) mmol/L 21.1 Anion Gap (3-11) mmol/L 12.9 H BUN (7-18) mg/dL 31 H Creatinine (0.55-1.02) mg/dL 1.7 H Est GFR (CKD-EPI 2020) (mL/min/1.73m2) 29.02 Glucose (74-106) mg/dL 121 H Calcium (8.5-10.1) mg/dL 9.4 Magnesium (1.8-2.4) mg/dL 2.2 Total Bilirubin (0.2-1.0) mg/dL 0.7 AST (15-37) U/L 19 ALT (14-59) U/L 28 Alkaline Phosphatase (46-116) U/L 139 H Troponin I (<or=51) ng/L 69 H* Total Protein (6.4-8.2) g/dL 8.9 H Albumin (3.4-5.0) g/dL 4.0 Lipase (<78) U/L 45 Medical Decision Making 84yo F with hx breast cancer, CKD,protein S deficiency,SMA stenosis, presenting for upper abdominal pain x 12-24 hours. No associated N/V/D, last BM yesterday normal. Vital signs reassuring on arrival HR 89 BP 103/68, mild epigastric tenderness on exam with no rebound or guarding. Not overtly septic. Broad differential including cardiac, GI, vascular pathology. -EKG SR, acceptable intervals, no ST segment or T wave abnormalities to suggest occlusive FL. -Labs reviewed as below, CBC with mild leukocytosis (nonspecific) and no anemia, CMP with Cr 1.7 (baseline appears to be 1.4-1.7 on [facility] record review) and normal LFTs and no actionable abnormalities, Mg normal, VBG with mild metabolic acidosis with pH 7.32 and bicarb 20, initial lactate 2.6 (one liter IVFB ordered and will trend), lipase normal (not suggestive of pancreatitis), coags normal, initial troponin 69 (given 325 ASA) with one hour repeat 60. -CTA independently reviewed; no dissection or saddle embolus on my view, radiology read with multiple segmental and subsegmental PEs. Given heparin bolus and started on gtt. BNP added on, elevated at 944. Bedside echo very limited, indeterminate, cannot r/o right heart strain. Pressures mostly 80's/50's-60's on monitor, 90's/60's when taken manually. Given borderline pressures, will start low-dose peripheral levophed to maintain systolic consistently >90. Discussed possible need for central line with patient; after discussion of risks and benefits she refuses at this time. [facility] with [facility] [place], Dr. Glez. Patient accepted to [facility] [place]. Kemp, listed for later today. In discussion with Dr. Glez, based on patient's adequate MAPs and baseline BP normotensive on [facility] record review, appropriate to tolerate SBP in 80's as long as no tachycardia and good MAP and he advised no levophed at this time (as well as concur no tPA). Discussed with [facility] hospitalist Dr. Camejo; patient accepted to medicine service pending [facility] [place]. Awaiting admission orders and transfer to the floor. Imaging Data Radiologic Study: Imaging: CT Scan Radiologist's impression: IMPRESSION: 1. Multiple pulmonary emboli. 2. No aortic aneurysm or dissection seen. 3. Additional findings as above Lab Data Lab results reviewed: Yes I reviewed the patient's lab results. Labs: Laboratory Tests Range/Units 01/21/25 01/21/25 00:54 02:00 WBC (4.4-10.8) 10^3/uL 12.98 H RBC (3.93-5.22) 10^6/uL 4.07 Hgb (11.2-15.7) g/dL 13.6 Hct (36.0-46.0) % 40.2 MCV (80-95) fL 99 H MCH (27.0-33.0) pg 33.4 H MCHC (32.0-36.0) % 33.8 RDW (11.7-14.6) % 12.3 Plt Count (130-400) 10^3/uL 158 MPV (8.0-11.0) fL 11.6 H Immature Gran % % 0.4 Neutrophils % % 75.0 Lymphocytes % % 16.1 Monocytes % % 7.7 Eosinophils % % 0.2 Basophils % % 0.6 Nucleated RBC % (0.0-0.3) % 0.0 Absolute Neutrophils (1.2-6.7) 10^3/uL 9.74 H Absolute Lymphocytes (1.2-3.4) 10^3/uL 2.09 Absolute Monocytes (0.1-0.8) 10^3/uL 1.00 H Absolute Eosinophils (0.0-0.7) 10^3/uL 0.03 Absolute Basophils (0.0-0.2) 10^3/uL 0.08 PT (9.1-11.1) sec 10.7 INR (0.9-1.1) 1.1 APTT (20.6-30.2) sec 25.4 VBG pH (7.31-7.41) 7.32 VBG pCO2 (41-51) mmHg 39 L VBG pO2 mmHg 25 VBG HCO3 (23-28) mmol/L 20 L VBG Total CO2 (24-29) mmol/L 18 L VBG O2 Saturation % 42 VBG Base Excess (-2-3) mmol/L -6 L VBG Lactate (<or=2.0) mmol/L 2.6 H* Sodium (136-145) mmol/L 137 Potassium (3.5-5.1) mmol/L 3.7 Chloride (98-107) mmol/L 103 Carbon Dioxide (21.0-32.0) mmol/L 21.1 Anion Gap (3-11) mmol/L 12.9 H BUN (7-18) mg/dL 31 H Creatinine (0.55-1.02) mg/dL 1.7 H Est GFR (CKD-EPI 2020) (mL/min/1.73m2) 29.02 Glucose (74-106) mg/dL 121 H Calcium (8.5-10.1) mg/dL 9.4 Magnesium (1.8-2.4) mg/dL 2.2 Total Bilirubin (0.2-1.0) mg/dL 0.7 AST (15-37) U/L 19 ALT (14-59) U/L 28 Alkaline Phosphatase (46-116) U/L 139 H Troponin I (<or=51) ng/L 69 H* 60 H* NT-Pro-B Natriuret Pep (<300) pg/mL 944 H Total Protein (6.4-8.2) g/dL 8.9 H Albumin (3.4-5.0) g/dL 4.0 Lipase (<78) U/L 45 Critical Care Time Critical Care Time Critical Care Time: Yes Total Critical Care Time: 32 Attestation: Due to a high probability of clinically significant, life threatening deterioration, the patient required my highest level of preparedness to intervene emergently and I personally spent this critical care time directly and personally managing the patient. This critical care time included obtaining a history; examining the patient; pulse oximetry; ordering and review of studies; arranging urgent treatment with development of a management plan; evaluation of patient's response to treatment; frequent reassessment; and, discussions with other providers. This critical care time was performed to assess and manage the high probability of imminent, life-threatening deterioration that could result in multi-organ failure. It was exclusive of separately billable procedures and treating other patients? [facility] All Active Problems (Updated 01/21/25 @ 03:47 by Darshan Camejo) Heart failure (Acute) Pulmonary embolism (Acute) Pancreatitis (Chronic ~04/2024) Compression fracture of body of thoracic vertebra (Acute) Hypothyroidism (Chronic) Osteoporosis (Chronic) Protein S deficiency (Chronic) Sialadenitis (Chronic) Chronic kidney disease (Chronic) Dyspnea (Acute) deconditioned Vitamin D deficiency (Acute) takes supplement Diverticulosis (Acute) Presbyopia (Acute) Infiltrating lobular carcinoma of breast, stage 1 (Chronic) Left breast Dr. Will, [facility] surgeon Medical History Chronic osteomyelitis of jaw historical use of Premarin with protein s deficiency. Many surgeries in her history, has dental implants. Breast lump or mass Dr. Will, [facility] surgeon Surgical History History of left cataract surgery (~07/18/14) History of right cataract surgery (~06/28/14) Hx of tonsillectomy Hx of colonoscopy 2001, 2016 Hx of sinus surgery 1988, 2006, 08/2015, 01/2016 Hx of removal of cyst (~1993) Hx of wisdom tooth extraction (~1987) Hx of section Family History Mother , 85 No problems noted. Father , 49 Heart disease Sister , 80 Breast cancer Brother , 55 Heart disease Son No problems noted. Social History Smoking/Tobacco Use Status: Former Tobacco Use tobacco type: cigarettes Quit Date: 07/16/93 Quit status: quit date established Second Hand Exposure: Yes Smoking risk assessment performed?: Yes Alcohol Intake: former Drug use: Never Substance use type: does not use Counseling given: No Adopted: No Caregiver/Support person: No Household members: none Housing: house Number of Children: 1 Communication Needs: None Education Level: college Details: associate degree Do you need help understanding health information?: Never current occupation: retired Pets and animals: No Sexually active: No Do you think of yourself as: straight/heterosexual Current gender identity: female What is your relationship status?: How often do you talk on the phone with friends or family?: three or more times per week How often do you get together with friends or relatives?: once per week How often do you attend zoroastrian or episcopal services?: decline to answer Do you belong to any clubs or organized social groups?: no Panel score (0-1 are the most socially isolated patients): 1 What type of physical activity do you participate in: none Frequency: does not exercise Laura/Hoahaoism: Synagogue Special laura needs: No Seatbelt use: always Drive intox or ride w/intox feeder driver: No Do you feel safe at home: Yes Do you feel safe in your relationship?: Yes POCUS Exam (ED) Limited Cardiac Exam DATE OF EXAM: 01/21/25 TIME OF EXAM: 02:50 PROVIDER THAT PERFORMED THE STUDY: Pattie Mccall REASON FOR EXAM: Right heart strain/PE VISUALIZED STRUCTURES: Four Chambers and Interventricular septum VIEW OBTAINED: Apical 4-Chamber, Parasternal long-axis and Subxiphoid PERTINENT FINDINGS/IMPRESSION: No pericardial effusion DIFFERENTIAL DIAGNOSES: indeterminate RV strain Exam complete
[2025-01-21] MEDS: Normal Saline Flush 10 ML SYR IVP ×4 (01:28→20:13)
[2025-01-21] MEDS: Omnipaque 350 MG/ML 100 ML BTL IJ (01:29)
[2025-01-21] MEDS: Aspirin 81 MG CHEW 324 MG CH (01:38)
[2025-01-21] MEDS: Normal Saline 1,000 ML 1000 ML IV (01:38)
[2025-01-21] MEDS: ACETAMINOPHEN 1,000 MG/100 ML BAG 400 MG IVPB (01:38)
[2025-01-21] MEDS: Normal Saline - Diluent 50 ML VIAL IJ (01:40)
--- NOTE | 2025-01-21 02:19 | DI.VRAD_ITS ---
Addendum created by Lili Napoles MD on 01/21/2025 2:19:48 AM EDT: THIS REPORT CONTAINS FINDINGS THAT MAY BE CRITICAL TO PATIENT CARE. The findings were verbally communicated via telephone conference with SENA UPTON at 2:19 AM EDT on 01/21/2025. The findings were acknowledged and understood. Initial report created on 01/21/2025 2:19:10 AM EDT: PROCEDURE INFORMATION: Exam: CTA Chest With Contrast CTA Abdomen and Pelvis With Contrast Exam date and time: 01/21/2025 1:15 AM Age: 84 years old Clinical indication: Radiating; Abdominal pain; Periumbilical; Prior surgery; Surgery date: 6+ months; Surgery type: Hips, ; Eval for aortic dissection TECHNIQUE: Imaging protocol: Computed tomographic angiography of the chest with contrast. Exam focused on the arteries. Computed tomographic angiography of the abdomen and pelvis with contrast. Exam focused on the arteries. 3D rendering (Not supervised by radiologist): MIP and/or 3D reconstructed images were created by the technologist. Radiation optimization: All CT scans at this facility use at least one of these dose optimization techniques: automated exposure control; mA and/or kV adjustment per patient size (includes targeted exams where dose is matched to clinical indication); or iterative reconstruction. Contrast material: OMNIPAQUE 350; Contrast volume: 59 ml; Contrast route: INTRAVENOUS (IV); COMPARISON: CT THORAX ABD/PEL CTA 04/25/2024 6:30 PM FINDINGS: Limitations: Artifact from metallic hardware limits evaluation of the surrounding tissues. VASCULATURE: Pulmonary arteries: Segmental and subsegmental pulmonary emboli in all lobes of the right lung. Aorta: Atherosclerotic changes in the aorta and its branches. No aortic aneurysm or dissection seen. Celiac trunk and mesenteric arteries: Occluded celiac axis with distal reconstitution, also seen previously. Mild narrowing at the origin of the superior mesenteric artery with distal reconstitution. Renal arteries: No occlusion or significant stenosis. Right iliac arteries: No occlusion or significant stenosis. Left iliac arteries: No occlusion or significant stenosis. CHEST: Lungs: No focal consolidation. Pleural spaces: No pleural effusion. Heart: No evidence for right heart strain. No pericardial effusion. Coronary arteries: Coronary artery calcifications. ABDOMEN AND PELVIS: Liver: No focal hepatic lesion seen. Gallbladder and biliary ducts: Cholecystectomy. Pancreas: Fatty infiltration of the pancreas. Spleen: Splenic granuloma. Adrenal glands: Adrenal thickening. Kidneys and ureters: Right renal cyst. Cortical thinning in the kidneys. Stomach and bowel: No intestinal obstruction is evident. Colonic diverticula. Appendix: No evidence of appendicitis. Intraperitoneal space: No free air. Urinary bladder: Not well evaluated. Reproductive: No acute abnormality appreciated, within the limitations noted above. Extensive artifact in the pelvis. Bilateral hip prosthesis. Artifact limits evaluation of the surrounding tissues. Lymph nodes: Nonspecific mesenteric and retroperitoneal lymph nodes. Bones/joints: Compression deformities at T8 and T9, status post vertebroplasty. Soft tissues: Unremarkable. IMPRESSION: 1. Multiple pulmonary emboli. 2. No aortic aneurysm or dissection seen. 3. Additional findings as above. Dictated and Authenticated by: Lili Napoles MD. Orderin Stefany Blankenship MD
[2025-01-21 02:27] LABS: Troponin I 60 ng/L (<or=51)
[2025-01-21] MEDS: Heparin in 0.45% NaCl 25,000 UNIT/250 ML BAG 10 UNIT IVINF (02:32)
[2025-01-21 02:44] LABS: NT-proBNP 944 pg/mL (<300)
[2025-01-21] MEDS: Norepinephrine in D5W 8 MG/250 ML BAG 1.9 MG IV (03:00)
--- NOTE | 2025-01-21 03:37 | W.PM.HP.N ---
Date of service: 01/21/25 Time of Service: 03:37 Assessment and Plan Assessment and plan (1) Pulmonary embolism: Start date: 01/21/25 Status: Acute Assessment and plan: This is an 84-year-old lady with protein S deficiency and a recent long trip without leg swelling or calf pain who presented with a 12 to 24-hour history of abdominal pain radiating into her back. CT imaging did not reveal any dissecting aneurysms but did reveal a large load of pulmonary emboli in her right lung. She was initiated on heparin infusion and has been accepted to [facility] in transfer later in the day. This may not be necessary if she improves. She did have some evidence of strain of her right ventricle with an elevated BNP, slight elevation of troponins which appear to be plateaued below 80 and transient hypotension now improved with IV hydration and treatment of her PE. I did order an echocardiogram and venous Doppler of the lower extremities may be done especially with her recent long trip. This may have been a provoked thromboembolic event but she does have high risk with protein S deficiency and should be on lifetime anticoagulation which she is hesitant to initiate. This may have been a previous discussion. She will continue on IV heparin and is not requiring blood pressure support other than IV fluids for mild metabolic acidosis and her transient hypotension. She should be converted to Eliquis when appropriate. She is a full code. (2) Protein S deficiency: Status: Chronic Assessment and plan: Follow-up PCP and specialty care as indicated. Patient should consider lifelong anticoagulation especially with his currently minimally provoked, life-threatening event.. (3) Sialadenitis: Status: Chronic Assessment and plan: Continue eyedrops while hospitalized. Follow-up eye pressures once she is stabilized from her acute process. (4) Chronic kidney disease: Status: Chronic Assessment and plan: This appears stable. Patient has mild metabolic acidosis with her acute process and will be IV hydrated with follow-up lactate and labs. (5) Infiltrating lobular carcinoma of breast, stage 1: Status: Chronic Assessment and plan: No evidence of disease status post lumpectomy. She refused further treatment. This most likely is not contributing to her acute process. (6) Hypothyroidism: Status: Chronic Assessment and plan: Check TSH and continue outpatient supplementation dose. History of Present Illness History of Present Illness Chief Complaint: Severe abdominal pain with dyspnea. Narrative: This is an 84-year-old female patient who has chronic protein S deficiency having been on no anticoagulation over the years who had a long trip to [place] just prior to the onset of the symptoms. She traveled by car to have her eyes checked and was to follow-up with local eye physician for eye pressure check in the next couple of days. She does have a history of protein S deficiency, left stage I breast cancer which was treated with lumpectomy without evidence of active disease, hypothyroidism and sialadenitis. She also has SMA stenosis and occasionally has abdominal pain which feels like [id number] which is brief and not provoked by eating. She stated that at first she thought that this abdominal pain was due to her SMA stenosis but was much worse and did not go away as well as radiated to her back. She does see vascular surgery at [facility] for her SMA stenosis. She presented to the ED with 12 to 24 hours of this pain not improving and having some slight dyspnea with because of the radiation to the back. She did not faint. She did not have any leg swelling with her travels. In the ED she was found to have multiple segmental and subsegmental PE in all lobes of the right lung with appearance of RV strain with an increase in BNP, mild elevation of her troponins which plateaued and transient hypotension requiring a low-dose of norepinephrine IV transiently. She is not hypoxic on room air. She was initiated on heparin infusion and [facility] was called. She was accepted at [facility] for evaluation but they did not recommend tPA. They may consider targeted thrombolytics if needed and will accept in transfer once a bed opens later in the day. The patient was admitted to the ICU and after only a brief period of pressor agents in the ED she did not require blood pressure support. She was placed on gentle IV hydration for mild metabolic acidosis having received 1 L of fluid in the ED. She has no history of heart failure. The patient is very talkative and comfortable with no complaints of pain at the time I interviewed her. 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 She is somewhat argumentative when discussing her history and medical problems proclaiming more insight and knowledge then possibly appropriate when being counseled on her medical problems and possible long-term sequela of protein S deficiency. She is a full code. Review of Systems Narrative: 13 point review of systems otherwise unrevealing or stable. Patient did not complain of dyspnea to the ED provider. PFSH All Active Problems (Updated 01/21/25 @ 03:47 by Darshan Camejo) Heart failure (Acute) Pulmonary embolism (Acute) Pancreatitis (Chronic ~04/2024) Compression fracture of body of thoracic vertebra (Acute) Hypothyroidism (Chronic) Osteoporosis (Chronic) Protein S deficiency (Chronic) Sialadenitis (Chronic) Chronic kidney disease (Chronic) Dyspnea (Acute) deconditioned Vitamin D deficiency (Acute) takes supplement Diverticulosis (Acute) Presbyopia (Acute) Infiltrating lobular carcinoma of breast, stage 1 (Chronic) Left breast Dr. Will, [facility] surgeon Medical History Chronic osteomyelitis of jaw historical use of Premarin with protein s deficiency. Many surgeries in her history, has dental implants. Breast lump or mass Dr. Will, [facility] surgeon Surgical History History of left cataract surgery (~07/18/14) History of right cataract surgery (~06/28/14) Hx of tonsillectomy Hx of colonoscopy 2001, 2016 Hx of sinus surgery 1988, 2006, 08/2015, 01/2016 Hx of removal of cyst (~1993) Hx of wisdom tooth extraction (~1987) Hx of section Family History Mother , 85 No problems noted. Father , 49 Heart disease Sister , 80 Breast cancer Brother , 55 Heart disease Son No problems noted. Social History Smoking/Tobacco Use Status: Former Tobacco Use tobacco type: cigarettes Quit Date: 07/16/93 Quit status: quit date established Second Hand Exposure: Yes Smoking risk assessment performed?: Yes Alcohol Intake: former Drug use: Never Substance use type: does not use Counseling given: No Adopted: No Caregiver/Support person: No Household members: none Housing: house Number of Children: 1 Communication Needs: None Education Level: college Details: associate degree Do you need help understanding health information?: Never current occupation: retired Pets and animals: No Sexually active: No Do you think of yourself as: straight/heterosexual Current gender identity: female What is your relationship status?: How often do you talk on the phone with friends or family?: three or more times per week How often do you get together with friends or relatives?: once per week How often do you attend mandaen or voodoo services?: decline to answer Do you belong to any clubs or organized social groups?: no Panel score (0-1 are the most socially isolated patients): 1 What type of physical activity do you participate in: none Frequency: does not exercise Laura/Latter-Day: Synagogue Special laura needs: No Seatbelt use: always Drive intox or ride w/intox line haul driver: No Do you feel safe at home: Yes Do you feel safe in your relationship?: Yes Meds Allergies and Home Medications Allergies Allergy/AdvReac Type Severity Reaction Status Date / Time codeine Allergy Unknown Unknown Unverified 01/21/25 00:50 estrogens, conjugated (From Allergy Unknown Unknown Unverified 01/21/25 00:50 Premarin) levothyroxine sodium (From Allergy Unknown Unknown Unverified 01/21/25 00:50 Synthroid) meperidine (From Demerol) AdvReac Intermediate Nausea Unverified 01/21/25 00:50 morphine AdvReac Intermediate Nausea Unverified 01/21/25 00:50 Home Medications ?Medication ?Instructions ?Recorded ?Confirmed ?Type prednisolone acetate 1 % eye 1 drp ophthalmic (eye) TID 08/02/23 01/21/25 History drops,suspension acetaminophen 325 mg tablet 650 mg PO Q4H PRN 04/23/24 01/21/25 History (Tylenol) ascorbic acid (vitamin C) 500 mg 500 mg PO BID 04/23/24 01/21/25 History capsule aspirin 81 mg chewable tablet 81 mg PO BID 04/23/24 01/21/25 History atropine sulfate (PF) 1 % eye drops 1 drp ophthalmic (eye) DAILY 04/23/24 01/21/25 History cyclosporine 0.05 % eye drops 1 drp ophthalmic (eye) Q12H 04/23/24 12/31/24 History diclofenac sodium 75 mg 75 mg PO BID 04/23/24 01/21/25 History tablet,delayed release sennosides 8.6 mg tablet 8.6 mg PO BID PRN 04/23/24 01/21/25 History sennosides 8.6 mg-docusate sodium 2 tab-cap PO BID 05/02/24 01/21/25 History 50 mg tablet (Senna with Docusate Sodium) Synthroid 150 mcg tablet 150 mcg PO QAM #90 tabs 11/19/24 01/21/25 Rx (levothyroxine) amoxicillin 875 mg-potassium 1 tab PO Q12H #14 tabs 12/23/24 01/21/25 Rx clavulanate 125 mg tablet Held on 01/21/25. Instructions: Prescription Finished brimonidine 0.2 % eye drops 1 drp ophthalmic (eye) TID 12/23/24 01/21/25 History dorzolamide 22.3 mg-timolol 6.8 1 drp ophthalmic (eye) BID 12/23/24 01/21/25 History mg/mL eye drops latanoprost 0.005 % eye drops 1 drp ophthalmic (eye) HS 12/23/24 01/21/25 History escitalopram oxalate 5 mg tablet 5 mg PO DAILY #90 tabs 12/25/24 01/21/25 Rx (Lexapro) Exam Narrative Exam Narrative: General: Patient appears appropriate for age, she is kyphotic sitting up in bed and has slightly pressured speech with a defiant attitude when discussing her medical care, past medical problems and the medical system in general wanting to minimize treatments and have control of her situation. She is slightly anxious. She is in no acute distress and alert and oriented x 3. HEENT: Normocephalic, eyes with pupils equal and reactive to light symmetrically, patient does blink frequently, extraocular movement intact and sclera anicteric. There is no eye drainage. Oropharynx with moist mucosa and fair dentition. Neck: Supple without JVD. Back: Kyphotic without CVA tenderness. Lungs: Fair aeration but patient has poor inspiratory effort, no focalizing rales or rhonchi and no expiratory wheeze. Breast: Lumpectomy scar over left breast with no gross masses by visualization. Heart: Distant heart sounds with regular rate and rhythm and no appreciable murmur or gallop. Abdomen: Normal contour, soft and nontender to palpation with no palpable hepatosplenomegaly. Bowel sounds positive in all quadrants. Genitalia/rectal: Exam deferred. Extremities: Without clubbing, cyanosis or pitting edema. Good capillary refill. Skin: Normal color, warm and dry. Neuro: Cranial nerves II through XII gross intact, no focalized motor deficits and no tremor. Psych: Slightly anxious and very talkative with pressured speech. She wanders in conversation but her thoughts are congruent. No abnormal thought processes. Remote and recent memory intact. Results Imaging Imaging Studies: CTA Chest With Contrast CTA Abdomen and Pelvis With Contrast Exam date and time: 01/21/2025 1:15 AM Age: 84 years old Clinical indication: Radiating; Abdominal pain; Periumbilical; Prior surgery; Surgery date: 6+ months; Surgery type: Hips, ; Eval for aortic dissection COMPARISON: CT THORAX ABD/PEL CTA 04/25/2024 6:30 PM FINDINGS: Limitations: Artifact from metallic hardware limits evaluation of the surrounding tissues. VASCULATURE: Pulmonary arteries: Segmental and subsegmental pulmonary emboli in all lobes of the right lung. Aorta: Atherosclerotic changes in the aorta and its branches. No aortic aneurysm or dissection seen. Celiac trunk and mesenteric arteries: Occluded celiac axis with distal reconstitution, also seen previously. Mild narrowing at the origin of the superior mesenteric artery with distal reconstitution. Renal arteries: No occlusion or significant stenosis. Right iliac arteries: No occlusion or significant stenosis. Left iliac arteries: No occlusion or significant stenosis. CHEST: Lungs: No focal consolidation. Pleural spaces: No pleural effusion. Heart: No evidence for right heart strain. No pericardial effusion. Coronary arteries: Coronary artery calcifications. ABDOMEN AND PELVIS: Liver: No focal hepatic lesion seen. Gallbladder and biliary ducts: Cholecystectomy. Pancreas: Fatty infiltration of the pancreas. Spleen: Splenic granuloma. Adrenal glands: Adrenal thickening. Kidneys and ureters: Right renal cyst. Cortical thinning in the kidneys. Stomach and bowel: No intestinal obstruction is evident. Colonic diverticula. Appendix: No evidence of appendicitis. Intraperitoneal space: No free air. Urinary bladder: Not well evaluated. Reproductive: No acute abnormality appreciated, within the limitations noted above. Extensive artifact in the pelvis. Bilateral hip prosthesis. Artifact limits evaluation of the surrounding tissues. Lymph nodes: Nonspecific mesenteric and retroperitoneal lymph nodes. Bones/joints: Compression deformities at T8 and T9, status post vertebroplasty. Soft tissues: Unremarkable. IMPRESSION: 1. Multiple pulmonary emboli. 2. No aortic aneurysm or dissection seen. 3. Additional findings as above. Labs 01/21/25 00:54 01/21/25 00:54 Labs: Laboratory Results - last 24 hr 01/21/25 01/21/25 00:54 02:00 WBC 12.98 H RBC 4.07 Hgb 13.6 Hct 40.2 MCV 99 H MCH 33.4 H MCHC 33.8 RDW 12.3 Plt Count 158 MPV 11.6 H Immature Gran % 0.4 Neutrophils % 75.0 Lymphocytes % 16.1 Monocytes % 7.7 Eosinophils % 0.2 Basophils % 0.6 Nucleated RBC % 0.0 Absolute Neutrophils 9.74 H Absolute Lymphocytes 2.09 Absolute Monocytes 1.00 H Absolute Eosinophils 0.03 Absolute Basophils 0.08 PT 10.7 INR 1.1 APTT 25.4 VBG pH 7.32 VBG pCO2 39 L VBG pO2 25 VBG HCO3 20 L VBG Total CO2 18 L VBG O2 Saturation 42 VBG Base Excess -6 L VBG Lactate 2.6 H* Sodium 137 Potassium 3.7 Chloride 103 Carbon Dioxide 21.1 Anion Gap 12.9 H BUN 31 H Creatinine 1.7 H Est GFR (CKD-EPI 2020) 29.02 Glucose 121 H Calcium 9.4 Magnesium 2.2 Total Bilirubin 0.7 AST 19 ALT 28 Alkaline Phosphatase 139 H Troponin I 69 H* 60 H* NT-Pro-B Natriuret Pep 944 H Total Protein 8.9 H Albumin 4.0 Lipase 45 Last Vital Signs Temp 36.4 C 01/21/25 00:44 Pulse 74 01/21/25 02:20 Resp 25 H 01/21/25 02:20 BP 86/68 L 01/21/25 02:01 Pulse Ox 100 01/21/25 02:20 Time Spent Time spent with Patient: >75 minutes Time was spent: preparing to see the patient(eg.review tests), obtaining and/or reviewing separately otained hiistory, ordering medications,tests, procedures, referring, communicating with other health associate director career services, indepentently interpreting results, counseling the patient and care coordination
[2025-01-21 05:04] LABS: Troponin I 75 ng/L (<or=51)
[2025-01-21] MEDS: Levothyroxine 75 MCG TAB 150 MCG PO (06:00)
--- NOTE | 2025-01-21 06:23 | W.PC.ACHO ---
Registration Status: ADM IN Primary Language: Preferred Language: Romanian ED Information & Data Chief Complaint Abd Prob 01/21/25 01:33 Triage Note upper abd pain tonight, 01/21/25 00:44 started yesterday. No n/v. pt states normal bm's. No meds taken to help alleviate pain. has vascular narrowing hx. hx of gallblader surgery Medical / Surgical History (Last Reviewed 01/21/25 @ 03:37 by Darshan Camejo) Chronic osteomyelitis of jaw Breast lump or mass (Last Reviewed 01/21/25 @ 03:37 by Darshan aCmejo) History of left cataract surgery (~07/18/14) History of right cataract surgery (~06/28/14) Hx of tonsillectomy Hx of colonoscopy Hx of sinus surgery Hx of removal of cyst (~1993) Hx of wisdom tooth extraction (~1987) Hx of section Most Recent Vital Signs Temperature 36.6 C 01/21/25 05:23 Temperature Source Temporal Artery Scan 01/21/25 05:23 Pulse 65 01/21/25 04:46 Pulse 66 01/21/25 04:46 Respiratory Rate 13 01/21/25 04:46 Respiratory Effort Normal 01/21/25 05:23 Respiratory Depth Normal 01/21/25 05:23 Respiratory Pattern Normal 01/21/25 05:23 Blood Pressure 113/61 01/21/25 04:46 Blood Pressure Mean 79 01/21/25 04:46 Pulse Oximetry 97 01/21/25 05:23 Oxygen Delivery Method Room Air 01/21/25 05:23 Oxygen Flow Rate 0 01/21/25 05:23 Allergies codeine Allergy (Unknown, Unverified 01/21/25 00:50) Unknown estrogens, conjugated (From Premarin) Allergy (Unknown, Unverified 01/21/25 00:50) Unknown levothyroxine sodium (From Synthroid) Allergy (Unknown, Unverified 01/21/25 00:50) Unknown Needs Brand name only meperidine (From Demerol) Adverse Reaction (Intermediate, Unverified 01/21/25 00:50) Nausea morphine Adverse Reaction (Intermediate, Unverified 01/21/25 00:50) Nausea Precautions Isolation Standard precaution 01/21/25 00:49 Active Medications Generic Name Dose Route Start Last Admin Trade Name Freq PRN Reason Stop Dose Admin Heparin Sodium/Sodium Chloride 25,000 unit in 250 mls @ 0 mls/hr 01/21/25 02:30 01/21/25 02:32 IVINF 10 mls/hr INFUSION RICKEY 10 mls/hr Protocol Administration Per Protocol Levothyroxine Sodium 150 mcg 01/21/25 06:00 01/21/25 06:00 Levothyroxine 75 Mcg Tab PO 150 mcg 0600 RICKEY Administration Sodium Chloride 0 ml 01/21/25 01:28 01/21/25 01:28 Normal Saline Flush 10 Ml Syr IVP 10 ml PRN PRN Administration Sodium Chloride 50 ml 01/21/25 01:45 01/21/25 01:40 Normal Saline - Diluent 50 Ml Vial IJ 50 ml .FOR DI USE RICKEY Administration IV IV Catheter Type [Left Forearm Saline Lock ] IV Catheter Type [Right Peripheral IV Antecubital] IV Catheter Gauge [Left 20 Forearm] IV Catheter Gauge [Right 20 Antecubital] Diet Orders Category Date Time Status Regular/Normal [DIET] Nutrition 01/21/25 Breakfast Active Diagnostics 01/21/25 01/21/25 01/21/25 Range/Units 08:30 05:35 05:21 WBC Pending (4.4-10.8) 10^3/uL RBC Pending (3.93-5.22) 10^6/uL Hgb Pending (11.2-15.7) g/dL Hct Pending (36.0-46.0) % MCV Pending (80-95) fL MCH Pending (27.0-33.0) pg MCHC Pending (32.0-36.0) % RDW Pending (11.7-14.6) % Plt Count Pending (130-400) 10^3/uL MPV Pending (8.0-11.0) fL Immature Gran % % Neutrophils % % Lymphocytes % % Monocytes % % Eosinophils % % Basophils % % Nucleated RBC % (0.0-0.3) % Absolute Neutrophils (1.2-6.7) 10^3/uL Absolute Lymphocytes (1.2-3.4) 10^3/uL Absolute Monocytes (0.1-0.8) 10^3/uL Absolute Eosinophils (0.0-0.7) 10^3/uL Absolute Basophils (0.0-0.2) 10^3/uL PT (9.1-11.1) sec INR (0.9-1.1) APTT Pending (20.6-30.2) sec VBG pH (7.31-7.41) VBG pCO2 (41-51) mmHg VBG pO2 mmHg VBG HCO3 (23-28) mmol/L VBG Total CO2 (24-29) mmol/L VBG O2 Saturation % VBG Base Excess (-2-3) mmol/L VBG Lactate (<or=2.0) mmol/L Sodium Pending (136-145) mmol/L Potassium Pending (3.5-5.1) mmol/L Chloride Pending (98-107) mmol/L Carbon Dioxide Pending (21.0-32.0) mmol/L Anion Gap Pending (3-11) mmol/L BUN Pending (7-18) mg/dL Creatinine Pending (0.55-1.02) mg/dL Est GFR (CKD-EPI 2020) Pending (mL/min/1.73m2) Glucose Pending (74-106) mg/dL Calcium Pending (8.5-10.1) mg/dL Magnesium (1.8-2.4) mg/dL Total Bilirubin Pending (0.2-1.0) mg/dL AST Pending (15-37) U/L ALT Pending (14-59) U/L Alkaline Phosphatase Pending (46-116) U/L Troponin I (<or=51) ng/L NT-Pro-B Natriuret Pep (<300) pg/mL Total Protein Pending (6.4-8.2) g/dL Albumin Pending (3.4-5.0) g/dL Lipase (<78) U/L TSH Pending COVID-19 Source SARS-CoV-2 (PCR) Influenza Type A (PCR) Influenza Type B (PCR) RSV (PCR) 01/21/25 01/21/25 01/21/25 Range/Units 04:32 03:57 02:00 WBC (4.4-10.8) 10^3/uL RBC (3.93-5.22) 10^6/uL Hgb (11.2-15.7) g/dL Hct (36.0-46.0) % MCV (80-95) fL MCH (27.0-33.0) pg MCHC (32.0-36.0) % RDW (11.7-14.6) % Plt Count (130-400) 10^3/uL MPV (8.0-11.0) fL Immature Gran % % Neutrophils % % Lymphocytes % % Monocytes % % Eosinophils % % Basophils % % Nucleated RBC % (0.0-0.3) % Absolute Neutrophils (1.2-6.7) 10^3/uL Absolute Lymphocytes (1.2-3.4) 10^3/uL Absolute Monocytes (0.1-0.8) 10^3/uL Absolute Eosinophils (0.0-0.7) 10^3/uL Absolute Basophils (0.0-0.2) 10^3/uL PT (9.1-11.1) sec INR (0.9-1.1) APTT (20.6-30.2) sec VBG pH (7.31-7.41) VBG pCO2 (41-51) mmHg VBG pO2 mmHg VBG HCO3 (23-28) mmol/L VBG Total CO2 (24-29) mmol/L VBG O2 Saturation % VBG Base Excess (-2-3) mmol/L VBG Lactate 1.6 (<or=2.0) mmol/L Sodium (136-145) mmol/L Potassium (3.5-5.1) mmol/L Chloride (98-107) mmol/L Carbon Dioxide (21.0-32.0) mmol/L Anion Gap (3-11) mmol/L BUN (7-18) mg/dL Creatinine (0.55-1.02) mg/dL Est GFR (CKD-EPI 2020) (mL/min/1.73m2) Glucose (74-106) mg/dL Calcium (8.5-10.1) mg/dL Magnesium (1.8-2.4) mg/dL Total Bilirubin (0.2-1.0) mg/dL AST (15-37) U/L ALT (14-59) U/L Alkaline Phosphatase (46-116) U/L Troponin I 75 H* 60 H* (<or=51) ng/L NT-Pro-B Natriuret Pep (<300) pg/mL Total Protein (6.4-8.2) g/dL Albumin (3.4-5.0) g/dL Lipase (<78) U/L TSH COVID-19 Source Pending SARS-CoV-2 (PCR) Pending Influenza Type A (PCR) Pending Influenza Type B (PCR) Pending RSV (PCR) Pending 01/21/25 Range/Units 00:54 WBC 12.98 H (4.4-10.8) 10^3/uL RBC 4.07 (3.93-5.22) 10^6/uL Hgb 13.6 (11.2-15.7) g/dL Hct 40.2 (36.0-46.0) % MCV 99 H (80-95) fL MCH 33.4 H (27.0-33.0) pg MCHC 33.8 (32.0-36.0) % RDW 12.3 (11.7-14.6) % Plt Count 158 (130-400) 10^3/uL MPV 11.6 H (8.0-11.0) fL Immature Gran % 0.4 % Neutrophils % 75.0 % Lymphocytes % 16.1 % Monocytes % 7.7 % Eosinophils % 0.2 % Basophils % 0.6 % Nucleated RBC % 0.0 (0.0-0.3) % Absolute Neutrophils 9.74 H (1.2-6.7) 10^3/uL Absolute Lymphocytes 2.09 (1.2-3.4) 10^3/uL Absolute Monocytes 1.00 H (0.1-0.8) 10^3/uL Absolute Eosinophils 0.03 (0.0-0.7) 10^3/uL Absolute Basophils 0.08 (0.0-0.2) 10^3/uL PT 10.7 (9.1-11.1) sec INR 1.1 (0.9-1.1) APTT 25.4 (20.6-30.2) sec VBG pH 7.32 (7.31-7.41) VBG pCO2 39 L (41-51) mmHg VBG pO2 25 mmHg VBG HCO3 20 L (23-28) mmol/L VBG Total CO2 18 L (24-29) mmol/L VBG O2 Saturation 42 % VBG Base Excess -6 L (-2-3) mmol/L VBG Lactate 2.6 H* (<or=2.0) mmol/L Sodium 137 (136-145) mmol/L Potassium 3.7 (3.5-5.1) mmol/L Chloride 103 (98-107) mmol/L Carbon Dioxide 21.1 (21.0-32.0) mmol/L Anion Gap 12.9 H (3-11) mmol/L BUN 31 H (7-18) mg/dL Creatinine 1.7 H (0.55-1.02) mg/dL Est GFR (CKD-EPI 2020) 29.02 (mL/min/1.73m2) Glucose 121 H (74-106) mg/dL Calcium 9.4 (8.5-10.1) mg/dL Magnesium 2.2 (1.8-2.4) mg/dL Total Bilirubin 0.7 (0.2-1.0) mg/dL AST 19 (15-37) U/L ALT 28 (14-59) U/L Alkaline Phosphatase 139 H (46-116) U/L Troponin I 69 H* (<or=51) ng/L NT-Pro-B Natriuret Pep 944 H (<300) pg/mL Total Protein 8.9 H (6.4-8.2) g/dL Albumin 4.0 (3.4-5.0) g/dL Lipase 45 (<78) U/L TSH COVID-19 Source SARS-CoV-2 (PCR) Influenza Type A (PCR) Influenza Type B (PCR) RSV (PCR) Intake and Output - 24 Hour Total 01/21/25 00:38 thru 01/21/25 06:10 Intake Total 1525 Balance 1525 Weight 55.4 kg Intake: IV 1350 Oral 175 Falls Risk Assessment History of Falls Previous History 01/21/25 05:23 Contributing Factors Unstable 01/21/25 05:23 Ambulatory Aids Uses ambulatory device + 01/21/25 05:23 Tubes/Lines With any additional score 01/21/25 05:23 Gait Evaluation No gait disturbance 01/21/25 05:23 Cognition No cognitive impairment 01/21/25 05:23 Fall Total Score 68 01/21/25 05:23 Level of Risk High Risk 01/21/25 05:23 Problems (Last Reviewed 01/21/25 @ 03:37 by Darshan Camejo) Pulmonary embolism (Acute) Hypothyroidism (Chronic) Protein S deficiency (Chronic) Sialadenitis (Chronic) Chronic kidney disease (Chronic) Infiltrating lobular carcinoma of breast, stage 1 (Chronic) v v v v v v v v v Sending and/or Receiving Nurses: Please use comment section below to note any information pertinent to the patient hand-off not included above. Information / Comments: Report received from: Bella Zuluaga RN
[2025-01-21] MEDS: Ibuprofen 600 MG TAB PO (08:53)
--- NOTE | 2025-01-21 09:06 | INITIAL_ITS ---
Date of service: 01/21/25 Time of Service: 09:07 Care Management Initial Assmt Initial Assessment Reason for Hospitalization: pulmonary embolism Functional Status/Living Situation Patient Presentation: Kasey presented to the ED early this morning with c/o upper abdominal pain for 12-24hours. She was unable to sleep and she called EMS. She was found to have multiple PE's. She was given a bolus and started on a heparin gtt. She was admitted to the ICU. Kasey was lying in bed when CM visited with her today. She was very pleasant and funny. Kasey lives alone and is still driving. She has one son who lives in [place]. Her best friends have passed, but she has a good neighbor who looks out for her a bit and will help her out with things. Cira does receive Meals on Wheels, but CM sent a referral to [place] [facility] Aging today to increase her supports and work on adjunct faculty for medical terminology planning. Kasey will have a PT consult tomorrow. Cira will be discharged home on Xarelto. SHERIE [facility] and her first 21day prescription will be covered using a coupon supplied by (actually covers 30 days, but she only needs 21 until she starts maintenence dose). acquired another coupon for that as well. did not discuss this with Cira today as she was sleeping and was not feeling great. This was passed on to the CM team, as this CM will not be working tomorrow. Town of Residence: [facility] Resides with: Alone Significant Other/Family: Local (sonDennis and daughter in law Honey) Natural Supports: Does not really have anyone in the area. Employment Status: Retired Instrumental Activities of Daily Living (ADLs): Independent Medications Medication Management: No Issues/Barriers identified Advance Directives Advance Directives: Do you have an Advance Directive: N , 13:57 AD On File at [facility]: N 10/19/12, 09:28 Date Asked 12/31/24 01/02/25, 12:01 AD Date Reviewed COLST On File at [facility] No 04/25/24, 18:56 COLST Date Scanned Code Status Resuscitation Status Full Code Insurance Coverage/Financial Issues Insurance: Medicare Part A & B - /[facility]? Care Team Visit Care Team Role Provider Type Ken Perez MD MD [facility] STAFF PHYSICIAN Alma Scott NP Primary Care Provider NURSE PRACTITIONER Pattie Mccall MD Emergency Provider [facility] STAFF PHYSICIAN Darshan Camejo Admit Provider NON-[facility] STAFF PHYSICIAN Attending Provider Discharge Potential Discharge Needs: PCP F/U Appt Anticipated Barriers to Discharge: None Identified Patient/Family Education Needs: Review discharge instructions, discuss Ask Me Three Transportation: [facility] Transportation: Private vechicle Plan: Anticipate that Kasey will be discharged home tomorrow. Would like to see her have new HH RN, as she will be on a new medication, and possibly PT if indicated. Cira will f/u with her PCP and continue per her plan of care. She will transport home via [facility] private vehicle. CM will continue to follow and update the plan as needed. Social Determinants of Health Screening Will the Patient Participate in the Screening?: Declined to provide PFSH All Active Problems (Updated 01/21/25 @ 03:47 by Darshan Camejo) Heart failure (Acute) Pulmonary embolism (Acute) Pancreatitis (Chronic ~04/2024) Compression fracture of body of thoracic vertebra (Acute) Hypothyroidism (Chronic) Osteoporosis (Chronic) Protein S deficiency (Chronic) Sialadenitis (Chronic) Chronic kidney disease (Chronic) Dyspnea (Acute) deconditioned Vitamin D deficiency (Acute) takes supplement Diverticulosis (Acute) Presbyopia (Acute) Infiltrating lobular carcinoma of breast, stage 1 (Chronic) Left breast Dr. Will, [facility] surgeon Medical History Chronic osteomyelitis of jaw historical use of Premarin with protein s deficiency. Many surgeries in her history, has dental implants. Breast lump or mass Dr. Will [facility] surgeon Surgical History History of left cataract surgery (~07/18/14) History of right cataract surgery (~06/28/14) Hx of tonsillectomy Hx of colonoscopy 2001, 2016 Hx of sinus surgery 1988, 2006, 08/2015, 01/2016 Hx of removal of cyst (~1993) Hx of wisdom tooth extraction (~1987) Hx of section Family History Mother , 85 No problems noted. Father , 49 Heart disease Sister , 80 Breast cancer Brother , 55 Heart disease Son No problems noted. Social History Smoking/Tobacco Use Status: Former Tobacco Use tobacco type: cigarettes Quit Date: 07/16/93 Quit status: quit date established Second Hand Exposure: Yes Smoking risk assessment performed?: Yes Alcohol Intake: former Drug use: Never Substance use type: does not use Counseling given: No Adopted: No Caregiver/Support person: No Household members: none Housing: house Number of Children: 1 Communication Needs: None Education Level: college Details: associate degree Do you need help understanding health information?: Never current occupation: retired Pets and animals: No Sexually active: No Do you think of yourself as: straight/heterosexual Current gender identity: female What is your relationship status?: How often do you talk on the phone with friends or family?: three or more times per week How often do you get together with friends or relatives?: once per week How often do you attend mormon or episcopal services?: decline to answer Do you belong to any clubs or organized social groups?: no Panel score (0-1 are the most socially isolated patients): 1 What type of physical activity do you participate in: none Frequency: does not exercise Laura/Yazdanism: Yazidi Special laura needs: No Seatbelt use: always Drive intox or ride w/intox horse and wagon driver: No Do you feel safe at home: Yes Do you feel safe in your relationship?: Yes
[2025-01-21 09:58] LABS: HCT 33.4 % (36.0-46.0); HGB 11.1 g/dL (11.2-15.7); MCH 33.1 pg (27.0-33.0); MCHC 33.2 % (32.0-36.0); MCV 100 fL (80-95); MPV 11.8 fL (8.0-11.0); Platelet Count 140 10^3/uL (130-400); RBC 3.35 10^6/uL (3.93-5.22); RDW 12.3 % (11.7-14.6); RDW-SD 44.6 fL; WBC 13.04 10^3/uL (4.4-10.8)
[2025-01-21 10:02] LABS: Glucose Negative (Negative)
[2025-01-21 10:13] LABS: C & S Indicated? No; RBC 0-2 HPF (0-2); WBC 0-2 HPF (0-5)
[2025-01-21 10:29] LABS: TSH 3.45 uIU/mL (0.36-3.74)
[2025-01-21 10:38] LABS: ALT 20 U/L (14-59); AST 18 U/L (15-37); Albumin 3.0 g/dL (3.4-5.0); Alkaline Phosphatase 104 U/L (46-116); Anion Gap 11.1 mmol/L (3-11); BUN 26 mg/dL (7-18); Bilirubin, Total 0.4 mg/dL (0.2-1.0); CO2 21.9 mmol/L (21.0-32.0); Calcium 8.2 mg/dL (8.5-10.1); Chloride 107 mmol/L (98-107); Estimated GFR 33.73 (mL/min/1.73m2); Glucose 83 mg/dL (74-106); Potassium 3.6 mmol/L (3.5-5.1); Sodium 140 mmol/L (136-145); Total Protein 6.9 g/dL (6.4-8.2)
[2025-01-21 10:48] LABS: COVID-19 PCR Negative (Negative); RSV PCR Negative (Negative)
--- NOTE | 2025-01-21 13:25 | DSE_ITS ---
DS: Diagnosis Discharge Diagnosis (1) Pulmonary embolism: Status: Acute (2) Protein S deficiency: Status: Chronic (3) Sialadenitis: Status: Chronic (4) Chronic kidney disease: Status: Chronic (5) Infiltrating lobular carcinoma of breast, stage 1: Status: Chronic (6) Hypothyroidism: Status: Chronic Discharge Plan Disposition Patient Disposition: Home Condition: Improving Discharge Details Reason For Visit: Acute pulmonary embolus without cor pulmonale Admit Date/Time: 01/21/25 03:57 Admit Provider: Darshan Camejo Attending Provider: Darshan Camejo Primary Care Provider: [facility] Hospital Course: Kasey Quintero is an 84 year old woman presenting January 20 with upper abdominal pain, found to have multiple pulmonary emboli, after lengthy car trip, with history of protein S deficiency and SMA thrombosis. BPs were low and transfer to [facility] was initiated, however her BP improved on fluids in the setting of no PO intake for 12 hours. She was admitted on a heparin drip, on room air, with stable vitals. In the morning she is comfortable, with unremarkable vitals, and agrees to start Xarelto for PE treatment. Recommending [facility] anticoagulation due to multiple hypercoagulability factors. She will follow up with PCP for referral to freight rate specialist or cryptological technician. Home Meds and New Rx's Prescriptions: New rivaroxaban 15 mg tablet 15 mg PO Q12H Qty: 42 0RF Rx Instructions: take with food rivaroxaban 20 mg tablet 20 mg PO QPM Qty: 90 0RF Rx Instructions: maintenance dose to start February 12 Continued dorzolamide-timolol 22.3-6.8 mg/mL drops 1 drp ophthalmic (eye) BID Patient Comments: INSTILL 1 DROP INTO THE LEFT EYE TWICE DAILY latanoprost 0.005 % drops 1 drp ophthalmic (eye) HS Patient Comments: INSTILL 1 DROP INTO THE LEFT EYE AT BEDTIME prednisolone acetate 1 % drops,suspension 1 drp ophthalmic (eye) TID Patient Comments: Pt states she takes it BID, Left eye erythromycin 5 mg/gram (0.5 %) ointment 1 applic ophthalmic (eye) 1999 Patient Comments: APPLY A THIN COATING OF MEDICATION TO LEFT EYELID MARGINS NIGHTLY NEEDED atropine 1 % drops 1 drp ophthalmic (eye) DAILY Patient Comments: INSTILL ONE DROP IN THE LEFT EYE ONCE DAILY cyclosporine 0.05 % dropperette 1 drp ophthalmic (eye) BID Patient Comments: INSTILL ONE DROP IN EACH EYE TWO TIMES A DAY levothyroxine 150 mcg capsule 150 mcg PO DAILY Patient Comments: TAKE ONE CAPSULE BY MOUTH EVERY DAY ascorbic acid (vitamin C) [Vitamin C] 500 mg tablet 500 mg PO BID Patient Comments: TAKE ONE TABLET BY MOUTH TWICE A DAY Discontinued sennosides-docusate sodium [Senna with Docusate Sodium] 8.6-50 mg tablet 2 tab-cap PO BID brimonidine 0.2 % drops 1 drp ophthalmic (eye) TID Patient Comments: INSTILL 1 DROP INTO THE LEFT EYE 3 TIMES DAILY amoxicillin-pot clavulanate 875-125 mg tablet 1 tab PO Q12H Qty: 14 0RF Rx Instructions: Take 1 tablet twice a day for 7 days ascorbic acid (vitamin C) 500 mg capsule 500 mg PO BID Rx Instructions: per Maegan discharge atropine sulfate (PF) 1 % drops 1 drp ophthalmic (eye) DAILY cyclosporine 0.05 % drops 1 drp ophthalmic (eye) Q12H diclofenac sodium 75 mg tablet,delayed release (DR/EC) 75 mg PO BID sennosides 8.6 mg tablet 8.6 mg PO BID PRN acetaminophen [Tylenol] 325 mg tablet 650 mg PO Q4H PRN levothyroxine [Synthroid] 150 mcg tablet 150 mcg PO QAM Qty: 90 3RF escitalopram oxalate [Lexapro] 5 mg tablet 5 mg PO DAILY Qty: 90 1RF polyethylene glycol 3350 17 gram powder in packet 17 g PO DAILY Patient Comments: MIX 1 PACKET IN LIQUID AND TAKE BY MOUTH ONCE DAILY oxycodone 5 mg tablet 2.5 mg PO Q4H PRN (Reason: pain) Patient Comments: TAKE ONE-HALF TABLET BY MOUTH EVERY 4 HOURS NEEDED FOR PAIN pantoprazole 40 mg tablet,delayed release (DR/EC) 40 mg PO DAILY Patient Comments: TAKE ONE TABLET BY MOUTH EVERY DAY aspirin 81 mg tablet,delayed release (DR/EC) 81 mg PO BID Patient Comments: TAKE ONE TABLET BY MOUTH TWICE A DAY No Action aspirin 81 mg tablet,chewable 81 mg PO BID Rx Instructions: stop 04/30 per Maegan discharge Discharge Instructions Activity:: Activity as Tolerated Equipment/Supplies:: No Equipment Needed Diet:: Normal Diet Discharge Orders Discharge Orders: Discharge Order (Routine); Ordered 01/21/25 Ordered By: Ken Perez DS: Data Vitals/I&O Vitals and I&O: Vital Signs Temperature 36.8 C 01/21/25 13:08 Temperature Source Tympanic 01/21/25 13:08 Pulse 74 01/21/25 13:04 Pulse 72 01/21/25 13:04 Respiratory Rate 20 01/21/25 13:04 Respiratory Effort Normal 01/21/25 05:23 Respiratory Depth Normal 01/21/25 05:23 Respiratory Pattern Normal 01/21/25 05:23 Blood Pressure 98/49 L 01/21/25 13:04 Blood Pressure Mean 65 01/21/25 13:04 Pulse Oximetry 99 01/21/25 09:01 Oxygen Delivery Method Room Air 01/21/25 05:23 Oxygen Flow Rate 0 01/21/25 05:23 Intake & Output 01/20/25 01/21/25 01/21/25 23:59 11:59 23:59 Intake Total 1910.5 / 1910.5 Output Total 90 / 90 Balance 1820.5 / 1820.5 Weight 55.4 kg Intake: IV 1435.5 / 1435.5 Oral 475 / 475 Output: Urine 90 / 90 Other: Urine Color Yellow Urine Appearance Clear Urine Odor Normal Data Completed and Pending Labs on day of discharge: Labs from last 24 hours 01/21/25 01/21/25 01/21/25 17:00 09:48 09:10 WBC 13.04 H RBC 3.35 L Hgb 11.1 L D Hct 33.4 L MCV 100 H MCH 33.1 H MCHC 33.2 RDW 12.3 Plt Count 140 MPV 11.8 H Immature Gran % Neutrophils % Lymphocytes % Monocytes % Eosinophils % Basophils % Nucleated RBC % Absolute Neutrophils Absolute Lymphocytes Absolute Monocytes Absolute Eosinophils Absolute Basophils PT INR APTT Pending > 155.0 H* VBG pH VBG pCO2 VBG pO2 VBG HCO3 VBG Total CO2 VBG O2 Saturation VBG Base Excess VBG Lactate Sodium 140 Potassium 3.6 Chloride 107 Carbon Dioxide 21.9 Anion Gap 11.1 H BUN 26 H Creatinine 1.5 H Est GFR (CKD-EPI 2020) 33.73 Glucose 83 Calcium 8.2 L Magnesium Total Bilirubin 0.4 AST 18 ALT 20 Alkaline Phosphatase 104 Troponin I NT-Pro-B Natriuret Pep Total Protein 6.9 Albumin 3.0 L Lipase TSH 3.45 Urine Color Yellow Urine Clarity Clear Urine pH 5.5 Ur Specific [place] 1.010 Urine Protein Trace Urine Ketones Negative Urine Blood Trace-intact H Urine Nitrite Negative Urine Bilirubin Negative Urine Urobilinogen 0.2 Ur Leukocyte Esterase Negative Urine RBC 0-2 Urine WBC 0-2 Ur Epithelial Cells Moderate Urine Crystals Few Amorphous Urine Bacteria Rare Urine Casts 3-5 Hyaline Urine Mucus Negative Ur Culture Indicated? No Urine Glucose Negative COVID-19 Source SARS-CoV-2 (PCR) Influenza Type A (PCR) Influenza Type B (PCR) RSV (PCR) 01/21/25 01/21/25 01/21/25 08:20 04:32 02:00 WBC RBC Hgb Hct MCV MCH MCHC RDW Plt Count MPV Immature Gran % Neutrophils % Lymphocytes % Monocytes % Eosinophils % Basophils % Nucleated RBC % Absolute Neutrophils Absolute Lymphocytes Absolute Monocytes Absolute Eosinophils Absolute Basophils PT INR APTT VBG pH VBG pCO2 VBG pO2 VBG HCO3 VBG Total CO2 VBG O2 Saturation VBG Base Excess VBG Lactate 1.6 Sodium Potassium Chloride Carbon Dioxide Anion Gap BUN Creatinine Est GFR (CKD-EPI 2020) Glucose Calcium Magnesium Total Bilirubin AST ALT Alkaline Phosphatase Troponin I 75 H* 60 H* NT-Pro-B Natriuret Pep Total Protein Albumin Lipase TSH Urine Color Urine Clarity Urine pH Ur Specific [place] Urine Protein Urine Ketones Urine Blood Urine Nitrite Urine Bilirubin Urine Urobilinogen Ur Leukocyte Esterase Urine RBC Urine WBC Ur Epithelial Cells Urine Crystals Urine Bacteria Urine Casts Urine Mucus Ur Culture Indicated? Urine Glucose COVID-19 Source Nasopharynx SARS-CoV-2 (PCR) Negative Influenza Type A (PCR) Negative Influenza Type B (PCR) Negative RSV (PCR) Negative 01/21/25 00:54 WBC 12.98 H RBC 4.07 Hgb 13.6 Hct 40.2 MCV 99 H MCH 33.4 H MCHC 33.8 RDW 12.3 Plt Count 158 MPV 11.6 H Immature Gran % 0.4 Neutrophils % 75.0 Lymphocytes % 16.1 Monocytes % 7.7 Eosinophils % 0.2 Basophils % 0.6 Nucleated RBC % 0.0 Absolute Neutrophils 9.74 H Absolute Lymphocytes 2.09 Absolute Monocytes 1.00 H Absolute Eosinophils 0.03 Absolute Basophils 0.08 PT 10.7 INR 1.1 APTT 25.4 VBG pH 7.32 VBG pCO2 39 L VBG pO2 25 VBG HCO3 20 L VBG Total CO2 18 L VBG O2 Saturation 42 VBG Base Excess -6 L VBG Lactate 2.6 H* Sodium 137 Potassium 3.7 Chloride 103 Carbon Dioxide 21.1 Anion Gap 12.9 H BUN 31 H Creatinine 1.7 H Est GFR (CKD-EPI 2020) 29.02 Glucose 121 H Calcium 9.4 Magnesium 2.2 Total Bilirubin 0.7 AST 19 ALT 28 Alkaline Phosphatase 139 H Troponin I 69 H* NT-Pro-B Natriuret Pep 944 H Total Protein 8.9 H Albumin 4.0 Lipase 45 TSH Urine Color Urine Clarity Urine pH Ur Specific [place] Urine Protein Urine Ketones Urine Blood Urine Nitrite Urine Bilirubin Urine Urobilinogen Ur Leukocyte Esterase Urine RBC Urine WBC Ur Epithelial Cells Urine Crystals Urine Bacteria Urine Casts Urine Mucus Ur Culture Indicated? Urine Glucose COVID-19 Source SARS-CoV-2 (PCR) Influenza Type A (PCR) Influenza Type B (PCR) RSV (PCR) [facility] All Active Problems (Updated 01/21/25 @ 03:47 by Darshan Camejo) Heart failure (Acute) Pulmonary embolism (Acute) Pancreatitis (Chronic ~04/2024) Compression fracture of body of thoracic vertebra (Acute) Hypothyroidism (Chronic) Osteoporosis (Chronic) Protein S deficiency (Chronic) Sialadenitis (Chronic) Chronic kidney disease (Chronic) Dyspnea (Acute) deconditioned Vitamin D deficiency (Acute) takes supplement Diverticulosis (Acute) Presbyopia (Acute) Infiltrating lobular carcinoma of breast, stage 1 (Chronic) Left breast Dr. Will, [facility] surgeon Medical History Chronic osteomyelitis of jaw historical use of Premarin with protein s deficiency. Many surgeries in her history, has dental implants. Breast lump or mass Dr. Will, [facility] surgeon Surgical History History of left cataract surgery (~07/18/14) History of right cataract surgery (~06/28/14) Hx of tonsillectomy Hx of colonoscopy 2001, 2016 Hx of sinus surgery 1988, 2006, 08/2015, 01/2016 Hx of removal of cyst (~1993) Hx of wisdom tooth extraction (~1987) Hx of section Family History Mother , 85 No problems noted. Father , 49 Heart disease Sister , 80 Breast cancer Brother , 55 Heart disease Son No problems noted. Social History Smoking/Tobacco Use Status: Former Tobacco Use tobacco type: cigarettes Quit Date: 07/16/93 Quit status: quit date established Second Hand Exposure: Yes Smoking risk assessment performed?: Yes Alcohol Intake: former Drug use: Never Substance use type: does not use Counseling given: No Adopted: No Caregiver/Support person: No Household members: none Housing: house Number of Children: 1 Communication Needs: None Education Level: college Details: associate degree Do you need help understanding health information?: Never current occupation: retired Pets and animals: No Sexually active: No Do you think of yourself as: straight/heterosexual Current gender identity: female What is your relationship status?: How often do you talk on the phone with friends or family?: three or more times per week How often do you get together with friends or relatives?: once per week How often do you attend jainism or faith services?: decline to answer Do you belong to any clubs or organized social groups?: no Panel score (0-1 are the most socially isolated patients): 1 What type of physical activity do you participate in: none Frequency: does not exercise Laura/Zoroastrian: Hoahaoism Special laura needs: No Seatbelt use: always Drive intox or ride w/intox dray driver: No Do you feel safe at home: Yes Do you feel safe in your relationship?: Yes
--- NOTE | 2025-01-21 14:26 | PGE_ITS ---
Date of Service Date of service: 01/21/25 Time of Service: 09:00 Assessment and Plan Assessment and plan (1) Hypotension due to hypovolemia: Status: Acute Assessment and plan: Low BPs with MAPs into the low 60's, as seen in the ED Likely due to poor PO intake the last 2 days She is upgraded to ICU status again Midline placed for relief of PIV site Bolusing 1L LR and again with 1L D5LR Starting norepinephrine drip per protocol (2) Pulmonary embolism: Start date: 01/21/25 Status: Acute Assessment and plan: Multiple risk factors for thromboembolic disease including history of tobacco smoking, use of premarin, protein S deficiency, SMA thrombosis Other than early evening low blood pressures which respond well to fluids, her vitals have been stabled. Discontinued plans to transfer to [facility], no indication for thrombectomy Echocardiogram shows no right heart strain She agreed to start rivaroxaban (3) Protein S deficiency: Status: Chronic Assessment and plan: Noted history, indication for long-term DOAC. (4) Sialadenitis: Status: Chronic Assessment and plan: Continue home regimen (5) Chronic kidney disease: Status: Chronic Assessment and plan: At baseline. (6) Infiltrating lobular carcinoma of breast, stage 1: Status: Chronic Assessment and plan: S/p lumpectomy. No current interventions. (7) Hypothyroidism: Status: Chronic Assessment and plan: TSH within normal limits Continue home regimen Subjective Subjective Interval history since last seen: Ms. Quintero is comfortable in bed except for her IV site which is painful. She was initially ready to go home, but her blood pressure fell in the afternoon. She has confirmed DNR status. Exam Narrative Exam Narrative: General: This is a pleasant, thin, elderly woman in no distress HEENT: Normocephalic, atraumatic CV: RRR Resp: CTAB Abd: NTND, +NBS MSK: warm and well perfused, voluntary motion x4 Objective Last Vital Signs Temp 36.8 C 01/21/25 13:08 Pulse 74 01/21/25 13:04 Resp 20 01/21/25 13:04 BP 98/49 L 01/21/25 13:04 Pulse Ox 99 01/21/25 09:01 Laboratory Results - last 24 hr 01/21/25 01/21/25 01/21/25 00:54 02:00 04:32 WBC 12.98 H RBC 4.07 Hgb 13.6 Hct 40.2 MCV 99 H MCH 33.4 H MCHC 33.8 RDW 12.3 Plt Count 158 MPV 11.6 H Immature Gran % 0.4 Neutrophils % 75.0 Lymphocytes % 16.1 Monocytes % 7.7 Eosinophils % 0.2 Basophils % 0.6 Nucleated RBC % 0.0 Absolute Neutrophils 9.74 H Absolute Lymphocytes 2.09 Absolute Monocytes 1.00 H Absolute Eosinophils 0.03 Absolute Basophils 0.08 PT 10.7 INR 1.1 APTT 25.4 VBG pH 7.32 VBG pCO2 39 L VBG pO2 25 VBG HCO3 20 L VBG Total CO2 18 L VBG O2 Saturation 42 VBG Base Excess -6 L VBG Lactate 2.6 H* 1.6 Sodium 137 Potassium 3.7 Chloride 103 Carbon Dioxide 21.1 Anion Gap 12.9 H BUN 31 H Creatinine 1.7 H Est GFR (CKD-EPI 2020) 29.02 Glucose 121 H Calcium 9.4 Magnesium 2.2 Total Bilirubin 0.7 AST 19 ALT 28 Alkaline Phosphatase 139 H Troponin I 69 H* 60 H* 75 H* NT-Pro-B Natriuret Pep 944 H Total Protein 8.9 H Albumin 4.0 Lipase 45 TSH Urine Color Urine Clarity Urine pH Ur Specific [place] Urine Protein Urine Ketones Urine Blood Urine Nitrite Urine Bilirubin Urine Urobilinogen Ur Leukocyte Esterase Urine RBC Urine WBC Ur Epithelial Cells Urine Crystals Urine Bacteria Urine Casts Urine Mucus Ur Culture Indicated? Urine Glucose COVID-19 Source SARS-CoV-2 (PCR) Influenza Type A (PCR) Influenza Type B (PCR) RSV (PCR) 01/21/25 01/21/25 01/21/25 08:20 09:10 09:48 WBC 13.04 H RBC 3.35 L Hgb 11.1 L D Hct 33.4 L MCV 100 H MCH 33.1 H MCHC 33.2 RDW 12.3 Plt Count 140 MPV 11.8 H Immature Gran % Neutrophils % Lymphocytes % Monocytes % Eosinophils % Basophils % Nucleated RBC % Absolute Neutrophils Absolute Lymphocytes Absolute Monocytes Absolute Eosinophils Absolute Basophils PT INR APTT > 155.0 H* VBG pH VBG pCO2 VBG pO2 VBG HCO3 VBG Total CO2 VBG O2 Saturation VBG Base Excess VBG Lactate Sodium 140 Potassium 3.6 Chloride 107 Carbon Dioxide 21.9 Anion Gap 11.1 H BUN 26 H Creatinine 1.5 H Est GFR (CKD-EPI 2020) 33.73 Glucose 83 Calcium 8.2 L Magnesium Total Bilirubin 0.4 AST 18 ALT 20 Alkaline Phosphatase 104 Troponin I NT-Pro-B Natriuret Pep Total Protein 6.9 Albumin 3.0 L Lipase TSH 3.45 Urine Color Yellow Urine Clarity Clear Urine pH 5.5 Ur Specific [place] 1.010 Urine Protein Trace Urine Ketones Negative Urine Blood Trace-intact H Urine Nitrite Negative Urine Bilirubin Negative Urine Urobilinogen 0.2 Ur Leukocyte Esterase Negative Urine RBC 0-2 Urine WBC 0-2 Ur Epithelial Cells Moderate Urine Crystals Few Amorphous Urine Bacteria Rare Urine Casts 3-5 Hyaline Urine Mucus Negative Ur Culture Indicated? No Urine Glucose Negative COVID-19 Source Nasopharynx SARS-CoV-2 (PCR) Negative Influenza Type A (PCR) Negative Influenza Type B (PCR) Negative RSV (PCR) Negative 01/21/25 17:00 WBC RBC Hgb Hct MCV MCH MCHC RDW Plt Count MPV Immature Gran % Neutrophils % Lymphocytes % Monocytes % Eosinophils % Basophils % Nucleated RBC % Absolute Neutrophils Absolute Lymphocytes Absolute Monocytes Absolute Eosinophils Absolute Basophils PT INR APTT Cancelled VBG pH VBG pCO2 VBG pO2 VBG HCO3 VBG Total CO2 VBG O2 Saturation VBG Base Excess VBG Lactate Sodium Potassium Chloride Carbon Dioxide Anion Gap BUN Creatinine Est GFR (CKD-EPI 2020) Glucose Calcium Magnesium Total Bilirubin AST ALT Alkaline Phosphatase Troponin I NT-Pro-B Natriuret Pep Total Protein Albumin Lipase TSH Urine Color Urine Clarity Urine pH Ur Specific [place] Urine Protein Urine Ketones Urine Blood Urine Nitrite Urine Bilirubin Urine Urobilinogen Ur Leukocyte Esterase Urine RBC Urine WBC Ur Epithelial Cells Urine Crystals Urine Bacteria Urine Casts Urine Mucus Ur Culture Indicated? Urine Glucose COVID-19 Source SARS-CoV-2 (PCR) Influenza Type A (PCR) Influenza Type B (PCR) RSV (PCR) Objective Narrative Objective Narrative: Echocardiogram: EF 57%, no RV dysfunction, no segmental wall motion abnormalities. Mitral valve calcification without stenosis. Time Spent with Patient Time Spent with Patient: 35-49 minutes Time was spent: preparing to see the patient(eg.review tests), obtaining and/or reviewing separately otained hiistory, ordering medications,tests, procedures, referring, communicating with other health managed care director, indepentently interpreting results, counseling the patient and care coordination
[2025-01-21] MEDS: Lactated Ringers 1,000 ML 500 ML IV (16:40)
[2025-01-21] MEDS: Rivaroxaban 15 MG TABLET PO (17:01)
[2025-01-21] MEDS: Norepinephrine in D5W 8 MG/250 ML BAG 9.375 MG IV (18:29)
[2025-01-21] MEDS: DEXTROSE 5%-LACTATED RINGERS 1,000 ML 1000 ML IV (19:54)
[2025-01-22] VITALS (79 sets, daily range): BP systolic 66–121; BP diastolic 50–85; PULSE 57–118; RESP 11–29; TEMP 36.5–36.7; O2SAT 87–99
[2025-01-22] MEDS: Levothyroxine 75 MCG TAB 150 MCG PO (06:03)
[2025-01-22] MEDS: Atropine 1% Ophth Sol. 2 ML BTL OP (06:11)
[2025-01-22] MEDS: Rivaroxaban 15 MG TABLET PO (07:58)
[2025-01-22] MEDS: Ascorbic Acid 500 MG TAB PO (07:59)
[2025-01-22] MEDS: Normal Saline Flush 10 ML SYR IVP (08:02)
[2025-01-22] MEDS: Midodrine 2.5 MG TAB PO ×2 (08:24→13:35)
[2025-01-22 08:31] LABS: HCT 32.2 % (36.0-46.0); HGB 11.1 g/dL (11.2-15.7); MCH 33.8 pg (27.0-33.0); MCHC 34.5 % (32.0-36.0); MCV 98 fL (80-95); MPV 12.1 fL (8.0-11.0); Platelet Count 153 10^3/uL (130-400); RBC 3.28 10^6/uL (3.93-5.22); RDW 12.2 % (11.7-14.6); RDW-SD 44.4 fL; WBC 9.87 10^3/uL (4.4-10.8)
[2025-01-22 08:47] LABS: ALT 16 U/L (14-59); AST 16 U/L (15-37); Albumin 2.6 g/dL (3.4-5.0); Alkaline Phosphatase 96 U/L (46-116); Anion Gap 8.9 mmol/L (3-11); BUN 19 mg/dL (7-18); Bilirubin, Total 0.3 mg/dL (0.2-1.0); CO2 24.1 mmol/L (21.0-32.0); Calcium 8.3 mg/dL (8.5-10.1); Chloride 111 mmol/L (98-107); Estimated GFR 36.64 (mL/min/1.73m2); Glucose 74 mg/dL (74-106); Potassium 3.3 mmol/L (3.5-5.1); Sodium 144 mmol/L (136-145); Total Protein 6.6 g/dL (6.4-8.2)
--- NOTE | 2025-01-22 08:57 | PDOC.CMPRO ---
Date of service: 01/22/25 Care Management Progress Note Discharge Potential Discharge Needs: PCP F/U Appt Anticipated Barriers to Discharge: None Identified Patient/Family Education Needs: Review discharge instructions, discuss Ask Me Three Transportation: Private vehicle Plan: Anticipate that Kasey will be discharged home tomorrow. Would like to see her have new HH RN, as she will be on a new medication, and possibly PT if indicated. Cira will f/u with her PCP and continue per her plan of care. She will transport home via [facility] private vehicle. CM will continue to follow and update the plan as needed. Social Determinants of Health Screening Will the Patient Participate in the Screening?: Declined to provide
--- NOTE | 2025-01-22 11:39 | PT.INIE ---
PT Notes Visit Reasons: Acute pulmonary embolus without cor pulmonale Physical Therapy Inpatient Initial Evaluation Date: 01/22/2025 Referring Doctor: Dr Perez PT Orders: PT CONSULT: PT evaluation and treatment Precautions: Telemetry, IV access Patient Profile/Admitting Diagnosis: Kasey is an 84-year-old female with protein S deficiency and a recent long trip without leg swelling or calf pain who presented to the ED with a 12 to 24-hour history of abdominal pain radiating into her back. CT imaging did not reveal any dissecting aneurysms but did reveal a large load of pulmonary emboli in her right lung. Patient transferred to the ICU unit for medical management and monitoring. PT consult in anticipation of discharge to home PMHX: Heart failure (Acute) Pulmonary embolism (Acute) Pancreatitis (Chronic ~04/2024) Compression fracture of body of thoracic vertebra (Acute) Hypothyroidism (Chronic) Osteoporosis (Chronic) Protein S deficiency (Chronic) Sialadenitis (Chronic) Chronic kidney disease (Chronic) Dyspnea (Acute) deconditionedVitamin D deficiency (Acute) takes supplementDiverticulosis (Acute) Presbyopia (Acute) Infiltrating lobular carcinoma of breast, stage 1 (Chronic) Left breast Dr. Will, [facility] surgeon Medical History Chronic osteomyelitis of jaw historical use of Premarin with protein s deficiency. Many surgeries in her history, has dental implants.Breast lump or mass Dr. Will, [facility] surgeon Surgical History History of left cataract surgery (~07/18/14) History of right cataract surgery (~06/28/14) Hx of tonsillectomy Hx of colonoscopy 2001, 2016Hx of sinus surgery 1988, 2006, 08/2015, 01/2016 Hx of removal of cyst (~1993) Hx of wisdom tooth extraction (~1987) Hx of section Social History/Home Situation: Patient resides alone in single-family home 13 steps to basement and 13 steps to bedroom with rail. Patient independent ambulation with cane or furniture walks within home. Independent ADLs, independent meal prep. Equipment Owned/DME: Single-point cane Subjective: Patient states she is able to walk and is looking forward to going home. Objective: [] General Observation: Thin female supine in bed telemetry in place agreeable to participate in evaluation. Mental Status: Alert and oriented x 4, able to follow instructions, cooperative Pain: Denies ROM: [] Right Upper Extremity: WFL Left Upper Extremity: WFL Right Lower Extremity: WFL with noted shortened hamstring length Left Lower Extremity: WFL with noted shortened hamstring length Strength: [] Right Upper Extremity: 3/5 grossly Left Upper Extremity: Grossly 3/5 Right Lower Extremity: Grossly 3/5 Left Lower Extremity: Hip abduction 3 -/5 and dorsiflexion 3 -/5 otherwise grossly 3/5 Sensation: Intact Bed Mobility/Transfers: [] Supine to sit independent Sit to stand independent Stand to sit independent Bed to chair independent Gait: ambulate with SBA 200 feet with SPC demonstrates impaired foot clearance BLE increased forward flexed trunk and increased knee flexion. Stairs: 5 steps x3 with 2 rails step to pattern SBA Balance: [] Static Sitting: Normal Dynamic Sitting: Normal Static Standing: Good Dynamic Standing:good Special Tests: [] Mobility Limitations Standardized Measure [] [facility] AM-PAC 6 clicks Basic Mobility Inpatient Short Form: [] Raw Score: 23 CMS Score: 11.20% Informed Consent/Education: Patient instructed in purpose of PT consult. treatment: functional mobility with SPC simulating ambulation within home including item transport and retrieval. Pt intermittent seeking WB support through LUE during ambulation in small spaces. Assessment: Patient is an 84-year-old thin/frail female presenting with ability to ambulate with single-point cane without loss of balance patient noted to intermittently seek out wall and/or furniture/railing if nearby. Patient demonstrates postural deficits increasing her risk for fall with forward weight shift. Patient demonstrates ability to return home and would benefit from supportive services for home management. Patient presents with clinical signs and symptoms consistent with current/admitting diagnoses that have resulted to mobility limitations, gait instability, generalized weakness, and impairment of motor control as demonstrated by the following impairment level findings: 1. Decreased strength to BUE BLE major muscle groups 2. Impaired standing balance 3. impaired hamstring length B 4. postural deficits 5. Impaired functional activity tolerance 6. Reduce pacing strategies and breath control Impairments are contributing to the following functional limitations: 1. Inability to safely ambulate without assistive device 2. Increase completion time for mobility ADL performance 3. Increased fall risk 4. Difficulty performing stairs safely Patient is assessed as a mod complexity based on the following: History: 84-year-old female with impairment level findings, functional limitations, and past medical history as indicated above Examination: Demonstrable impairment in strength, balance, and mobility level with underlying impairments and functional limitations as documented above Presentation: Stable/evolving Decision Making: Moderate Goals: N/A. PT evaluation and 1-2 treatment sessions only for functional mobility training using recommended AD and for HEP instruction. Plan of Care/Treatment Plan: N/A. PT evaluation and 1-2 treatment session only for functional mobility training using recommended AD and for HEP instruction. DISCHARGE RECOMMENDATIONS: Home with HHPT Patient will benefit from home health PT services in order to progress mobility level using least restrictive assistive ambulatory device, assess home safety, identify additional equipment needs, and establish a functional maintenance program that will increase ability of patient to remain at home. TREATMENT CODE/TIME:73196, [id number]/ [id number] Thank you for the opportunity to participate in the care of this patient. Kathya Butcher, PT [facility]
[2025-01-22 12:23] LABS: Iron 34 ug/dL (50-170); Total Iron Binding Capacity 135 ug/dL (250-450); Transferrin Sat 25 % (15-50)
--- NOTE | 2025-01-22 13:10 | W.PM.DS.N ---
Date of service: 01/22/25 Time of Service: 12:00 DS: Diagnosis Discharge Diagnosis (1) Hypotension due to hypovolemia: Status: Acute Asessment and Plan: Patient found to have multiple PEs in the ED with hypotension Concerning for need for intervention at [facility] She had not had any PO food nor water for nearly 24 hours on presentation She was started on norepinephrine but BPs improved with IV fluids No further hypotension after admission (2) Pulmonary embolism: Status: Acute Asessment and Plan: Multiple risk factors for thromboembolic disease including history of tobacco smoking, use of premarin, protein S deficiency, SMA thrombosis Other than early evening low blood pressures which respond well to fluids, her vitals have been stabled. Discontinued plans to transfer to [facility], no indication for thrombectomy Echocardiogram shows no right heart strain History of protein S deficiency, SMA thrombosis, jaw claudication Patient has not been on anticoagulation Strongly recommending DOAC, started rivaroxaban Strongly recommending hematology or pulmonology follow up with PCP referral (3) Protein S deficiency: Status: Chronic Asessment and Plan: Noted history, indication for long-term DOAC. (4) Hypothyroidism: Status: Chronic Asessment and Plan: TSH within normal limits Continue home regimen Discharge Plan Disposition Patient Disposition: Home Condition: Improving Discharge Details Reason For Visit: Acute pulmonary embolus without cor pulmonale Admit Date/Time: 01/21/25 03:57 Admit Provider: Darshan Camejo Attending Provider: Darshan Camejo Primary Care Provider: [facility] Course Hospital Course: Kasey Quintero is an 84 year old woman presenting January 20 with upper abdominal pain, found to have multiple pulmonary emboli, after lengthy car trip, with history of protein S deficiency and SMA thrombosis. BPs were low and transfer to [facility] was initiated, however her BP improved on fluids in the setting of no PO intake for 12 hours. She was admitted on a heparin drip, on room air, with stable vitals. She agrees to start Xarelto for PE treatment. Recommending intermediate anticoagulation due to multiple hypercoagulability factors. 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 She had recurrent hypotension with MAP in the low 60's on hospital day 2, and was intermittently on a norepinephrine drip. Blood pressures stabilized after meals and she has been started on midodrine. Physical therapy identified deficits in mobility and recommend home PT, but patient declines this assistance. She is discharged home with education on fall precautions. Home Meds and New Rx's Prescriptions: New rivaroxaban 15 mg tablet 15 mg PO Q12H Qty: 42 0RF Rx Instructions: take with food rivaroxaban 20 mg tablet 20 mg PO QPM Qty: 90 0RF Rx Instructions: maintenance dose to start February 12 midodrine 5 mg tablet 5 mg PO TID Qty: 60 0RF Rx Instructions: do not give last dose of day after 6PM or within 4 hrs of bedtime Continued dorzolamide-timolol 22.3-6.8 mg/mL drops 1 drp ophthalmic (eye) BID Patient Comments: INSTILL 1 DROP INTO THE LEFT EYE TWICE DAILY latanoprost 0.005 % drops 1 drp ophthalmic (eye) HS Patient Comments: INSTILL 1 DROP INTO THE LEFT EYE AT BEDTIME prednisolone acetate 1 % drops,suspension 1 drp ophthalmic (eye) TID Patient Comments: Pt states she takes it BID, Left eye erythromycin 5 mg/gram (0.5 %) ointment 1 applic ophthalmic (eye) 1999 Patient Comments: APPLY A THIN COATING OF MEDICATION TO LEFT EYELID MARGINS NIGHTLY NEEDED atropine 1 % drops 1 drp ophthalmic (eye) DAILY Patient Comments: INSTILL ONE DROP IN THE LEFT EYE ONCE DAILY cyclosporine 0.05 % dropperette 1 drp ophthalmic (eye) BID Patient Comments: INSTILL ONE DROP IN EACH EYE TWO TIMES A DAY levothyroxine 150 mcg capsule 150 mcg PO DAILY Patient Comments: TAKE ONE CAPSULE BY MOUTH EVERY DAY ascorbic acid (vitamin C) [Vitamin C] 500 mg tablet 500 mg PO BID Patient Comments: TAKE ONE TABLET BY MOUTH TWICE A DAY Discontinued sennosides-docusate sodium [Senna with Docusate Sodium] 8.6-50 mg tablet 2 tab-cap PO BID brimonidine 0.2 % drops 1 drp ophthalmic (eye) TID Patient Comments: INSTILL 1 DROP INTO THE LEFT EYE 3 TIMES DAILY amoxicillin-pot clavulanate 875-125 mg tablet 1 tab PO Q12H Qty: 14 0RF Rx Instructions: Take 1 tablet twice a day for 7 days ascorbic acid (vitamin C) 500 mg capsule 500 mg PO BID Rx Instructions: per Maegan discharge atropine sulfate (PF) 1 % drops 1 drp ophthalmic (eye) DAILY cyclosporine 0.05 % drops 1 drp ophthalmic (eye) Q12H diclofenac sodium 75 mg tablet,delayed release (DR/EC) 75 mg PO BID sennosides 8.6 mg tablet 8.6 mg PO BID PRN acetaminophen [Tylenol] 325 mg tablet 650 mg PO Q4H PRN levothyroxine [Synthroid] 150 mcg tablet 150 mcg PO QAM Qty: 90 3RF escitalopram oxalate [Lexapro] 5 mg tablet 5 mg PO DAILY Qty: 90 1RF polyethylene glycol 3350 17 gram powder in packet 17 g PO DAILY Patient Comments: MIX 1 PACKET IN LIQUID AND TAKE BY MOUTH ONCE DAILY oxycodone 5 mg tablet 2.5 mg PO Q4H PRN (Reason: pain) Patient Comments: TAKE ONE-HALF TABLET BY MOUTH EVERY 4 HOURS NEEDED FOR PAIN pantoprazole 40 mg tablet,delayed release (DR/EC) 40 mg PO DAILY Patient Comments: TAKE ONE TABLET BY MOUTH EVERY DAY aspirin 81 mg tablet,delayed release (DR/EC) 81 mg PO BID Patient Comments: TAKE ONE TABLET BY MOUTH TWICE A DAY No Action aspirin 81 mg tablet,chewable 81 mg PO BID Rx Instructions: stop 04/30 per Maegan discharge Discharge Instructions Referrals: Alma Scott NP [Primary Care Provider, Medicine] - 01/27/25 1:00 pm Activity:: Activity as Tolerated Equipment/Supplies:: No Equipment Needed Diet:: Normal Diet Discharge Orders Discharge Orders: Discharge Order (Routine); Ordered 01/22/25 Ordered By: Ken Perez Discharge Data Discharge Date/Time-TO BE ENTERED AT DEPARTURE: 01/22/25 14:30 DS: Summary Time Spent with Patient providing and/or coordinating discharge services: Less than 30 minutes Status at Discharge Functional status at discharge: independent ambulation Overall status at discharge: patient is progressing back to baseline Mental Status: mental status grossly normal Speech and Movement: speech and movement normal Mood: congruent mood Affect: normal affect Exam Psych Mental Status: mental status grossly normal Speech and Movement: speech and movement normal Mood: congruent mood Affect: normal affect DS: Data Vitals/I&O Vitals and I&O: Vital Signs Temperature 36.6 C 01/22/25 12:33 Temperature Source Tympanic 01/22/25 12:33 Pulse 100 H 01/22/25 12:33 Pulse 68 01/22/25 09:45 Respiratory Rate 17 01/22/25 09:45 Respiratory Effort Normal 01/21/25 05:23 Respiratory Depth Normal 01/21/25 05:23 Respiratory Pattern Normal 01/21/25 05:23 Blood Pressure 102/81 01/22/25 12:33 Blood Pressure Mean 88 01/22/25 12:33 Pulse Oximetry 99 01/22/25 09:45 Oxygen Delivery Method Room Air 01/22/25 12:33 Oxygen Flow Rate 0 01/22/25 12:33 Pain Level 0 01/22/25 07:54 Intake & Output 01/21/25 01/22/25 01/22/25 23:59 11:59 23:59 Intake Total 2008.9 / 3920.189 78.282 / 78.282 Output Total 1075 / 1165 700 / 700 Balance 934.689 / 2755.189 -621.718 / -621.718 Intake: IV 2008. / 3445.189 78.282 / 78.282 Output: Urine 1075 / 1165 700 / 700 Other: Urine Color Yellow Yellow Urine Appearance Clear Clear Urine Odor None None Data Completed and Pending Labs on day of discharge: Labs from last 24 hours 01/22/25 01/21/25 01/21/25 08:12 17:00 09:48 WBC 9.87 RBC 3.28 L Hgb 11.1 L Hct 32.2 L MCV 98 H MCH 33.8 H MCHC 34.5 RDW 12.2 Plt Count 153 MPV 12.1 H APTT Cancelled > 155.0 H* Sodium 144 Potassium 3.3 L Chloride 111 H Carbon Dioxide 24.1 Anion Gap 8.9 BUN 19 H Creatinine 1.4 H Est GFR (CKD-EPI 2020) 36.64 Glucose 74 Calcium 8.3 L Iron 34 L TIBC 135 L Transferrin % Sat 25 Total Bilirubin 0.3 AST 16 ALT 16 Alkaline Phosphatase 96 Total Protein 6.6 Albumin 2.6 L PFSH All Active Problems (Updated 01/23/25 @ 00:03 by SINGH AWTERS) Hypotension due to hypovolemia (Acute) Heart failure (Acute) Pulmonary embolism (Acute) Pancreatitis (Chronic ~04/2024) Compression fracture of body of thoracic vertebra (Acute) Hypothyroidism (Chronic) Osteoporosis (Chronic) Protein S deficiency (Chronic) Dyspnea (Acute) deconditioned Vitamin D deficiency (Acute) takes supplement Diverticulosis (Acute) Presbyopia (Acute) Medical History Chronic osteomyelitis of jaw historical use of Premarin with protein s deficiency. Many surgeries in her history, has dental implants. Breast lump or mass Dr. Will [facility] surgeon Surgical History History of left cataract surgery (~07/18/14) History of right cataract surgery (~06/28/14) Hx of tonsillectomy Hx of colonoscopy 2001, 2016 Hx of sinus surgery 1988, 2006, 08/2015, 01/2016 Hx of removal of cyst (~1993) Hx of wisdom tooth extraction (~1987) Hx of section Family History Mother , 85 No problems noted. Father , 49 Heart disease Sister , 80 Breast cancer Brother , 55 Heart disease Son No problems noted. Social History Smoking/Tobacco Use Status: Former Tobacco Use tobacco type: cigarettes Quit Date: 07/16/93 Quit status: quit date established Second Hand Exposure: Yes Smoking risk assessment performed?: Yes Alcohol Intake: former Drug use: Never Substance use type: does not use Counseling given: No Adopted: No Caregiver/Support person: No Household members: none Housing: house Number of Children: 1 Communication Needs: None Education Level: college Details: associate degree Do you need help understanding health information?: Never current occupation: retired Pets and animals: No Sexually active: No Do you think of yourself as: straight/heterosexual Current gender identity: female What is your relationship status?: How often do you talk on the phone with friends or family?: three or more times per week How often do you get together with friends or relatives?: once per week How often do you attend taoist or restorationism services?: decline to answer Do you belong to any clubs or organized social groups?: no Panel score (0-1 are the most socially isolated patients): 1 What type of physical activity do you participate in: none Frequency: does not exercise Laura/Restoration: Spiritism Special laura needs: No Seatbelt use: always Drive intox or ride w/intox 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
--- NOTE | 2025-01-22 13:39 | CMDISCH_ITS ---
Date of service: 01/22/25 Time of Service: 13:39 LACE Index Scoring Tool Questions: Length of Stay (in days): 1 Was the patient admitted via the E.D.?: Yes Comorbidities: Congestive Heart Failure, Any Tumor and Liver or Renal Disease E.D. Visits: 1 Answers: Total Score: 10 Risk of Readmission: High Risk Care Management Discharge Plan Reason for Hospitalization: pulmonary embolism Discharge Plan: aKsey will be discharged home with new home health services for PT. She will follow up with her PCP and plan of ca re and transport via [facility] coordinated by CM. Patient/Family Education Needs: Review discharge instructions, discuss Ask Me Three Services Needed at Discharge: Home Health Care Services and Transportation
--- NOTE | 2025-01-22 14:01 | OT.INIE ---
Occupational Therapy Notes Inpatient Occupational Therapy Evaluation Date: 01/22/25 Referring Doctor: Ken Perez OT Orders: Non Urgent Precautions: Fall, Standard, DNR/DNI PATIENT PROFILE/ADMITTING DIAGNOSIS: Pt is a 84 year old female who was admitted to [facility] Surg the the following dx of Hypotension due to hypovolemia, heart failure and pulmonary embolism. Past Medical History: All Active Problems (Updated 01/21/25 @ 03:47 by Darshan Camejo) Heart failure (Acute) Pulmonary embolism (Acute) Pancreatitis (Chronic ~04/2024) Compression fracture of body of thoracic vertebra (Acute) Hypothyroidism (Chronic) Osteoporosis (Chronic) Protein S deficiency (Chronic) Sialadenitis (Chronic) Chronic kidney disease (Chronic) Dyspnea (Acute) deconditionedVitamin D deficiency (Acute) takes supplementDiverticulosis (Acute) Presbyopia (Acute) Infiltrating lobular carcinoma of breast, stage 1 (Chronic) Left breast Dr. Will, [facility] surgeon Medical History Chronic osteomyelitis of jaw historical use of Premarin with protein s deficiency. Many surgeries in her history, has dental implants.Breast lump or mass Dr. Will, [facility] surgeon Surgical History History of left cataract surgery (~07/18/14) History of right cataract surgery (~06/28/14) Hx of tonsillectomy Hx of colonoscopy 2001, 2016Hx of sinus surgery 1988, 2006, 08/2015, 01/2016 Hx of removal of cyst (~1993) Hx of wisdom tooth extraction (~1987) Hx of section Family History Mother , 85 No problems noted. Father , 49 Heart diseaseSister , 80 Breast cancerBrother , 55 Heart diseaseSon No problems noted. Social History/Home Situation: Pt states that she lives at home and is (I) with her ADL/IADL routines. She has stairs in her home but states that she does not have an issue with this. She is having some difficulty with her vision in her (L) eye which she notes that she had prior. She has no services or Equipment owned/DME: FERNANDO Sabillon SUBJECTIVE: Pt was sitting in bed when OT arrived. She notes that she does feel that she is (I) and doing well. OBJECTIVE: General Observation: Pleasant, IV in (L) wrist which she states is painful Mental Status: A&OX4 Pain: c/o pain in (L) Wrist from IV access ROM: RUE AROM WFL L UE AROM WFL STRENGTH: (R) Shoulder flexion 4-/5, Bicep 4/5, Tricep 5/5, head of stock 4/5 (L) Shoulder flexion 4/5, Bicep 4/5, Tricep 4/5, head of stock 4-/5 FUNCTIONAL MOBILITY/ADLS: BATHING Pt denies performance with OT but AROM WFL to be able to perform (I) without (A) at this time. DRESSING seated in bed Dressing UE Pt is (I) Dressing LE (I) with don and doffing pants and shoes GROOMING (I) TOILETING NT at todays evaluation EATING (I) without modifications needed. BALANCE: Static sitting Normal Dynamic Sitting Normal SPECIAL TESTS: Daily Activity Limitations Standardized Measure [facility] AM -PAC ?6 clicks? Daily Activity Inpatient Short Form: Raw score: 0 Standardized score: 57.54 CMS score: 0.00% INFORMED CONSENT/EDUCATION: Pt instructed in purpose of OT Consult and plan of care. ASSESSMENT: Patient is a 84 year-old female referred to occupational therapy services with diagnosis of Hypotension due to hypovolemia, heart failure and pulmonary embolism. Patient presents with clinical signs and symptoms consistent with dx. Pt was seen for OT consult and notes that she does not feel that she will need further OT services at this time. OT is in agreement with this plan of care. Patient is assessed as a Low 01237 complexity based on the following: History: see above Examination: see functional limitations as noted above Presentation: evolving Decision Making: [facility] 0 GOALS N/A PLAN OF CARE/TREATMENT PLAN: Seen for OT consult only. DISCHARGE RECOMMENDATIONS OT recommends that pt return home when medically cleared per MD. TREATMENT TIME/MINUTES/CODES 52996, 15 minutes [facility] [place], [place]
== END 2025-01-22 14:30 | disposition home or self-care (01) | DRG 176 ==
LOC: ER 04:49 → ICU 05:08
PROVIDERS: Admitting Provider Family Medicine; Emergency Provider Student in an Organized Health Care Education/Training Program; PCP Nurse Practitioner Family; Responsible Provider Family Medicine; Visit Provider Family Medicine
DX: D68.59 Other primary thrombophilia; K11.20 Sialoadenitis, unspecified; N18.4 Chronic kidney disease, stage 4 (severe); E03.9 Hypothyroidism, unspecified; E86.1 Hypovolemia; I26.94 Multiple subsegmental thrombotic pulmonary emboli without acute cor pulmonale; E87.20 Acidosis, unspecified; I82.411 Acute embolism and thrombosis of right femoral vein; I82.441 Acute embolism and thrombosis of right tibial vein; K55.1 Chronic vascular disorders of intestine; K86.1 Other chronic pancreatitis; I95.9 Hypotension, unspecified; Z85.3 Personal history of malignant neoplasm of breast; E55.9 Vitamin D deficiency, unspecified; M81.0 Age-related osteoporosis without current pathological fracture
CPT/HCPCS: 00123; 36410; 36415; 71275; 80053; 82805; 83690; 85027; 87637; 93005; 93308; 96361; 96365; 96366; 96367; 96375; 97162; 97165; 97530; 99291; 74174; 81003; 81015; 83540; 83550; 83605; 83735; 83880; 84443; 84484; 85025; 85610; 85730; 93010; 93306; 93970; 99223; 99238; J0131; J1644; J3490

== ENCOUNTER 2025-03-01 18:59 | Emergency (ER) | payer MEDICARE, BC, SELFPAY ==
[2025-03-01 18:58] VITALS: BP 164/58; PULSE 59; RESP 18; TEMP 36.1; O2SAT 98
--- NOTE | 2025-03-01 19:13 | ED.GENADUL_ITS ---
Discharge Plan Disposition Patient Disposition: Transfer-Acute Inpatient Care Specific Acute Inpt Facility: [facility] Condition: Fair Discharge Details Clinical Impression: Acute glaucoma of left eye, Blind painful left eye Primary Care Provider: Kayleigh Cortes ED Provider: Sheron Alejo Home Meds and New Rx's Prescriptions: No Action levothyroxine [Synthroid] 150 mcg tablet 150 mcg PO QAM Qty: 90 3RF dorzolamide-timolol 22.3-6.8 mg/mL drops 1 drp ophthalmic (eye) BID Patient Comments: INSTILL 1 DROP INTO THE LEFT EYE TWICE DAILY latanoprost 0.005 % drops 1 drp ophthalmic (eye) HS Patient Comments: INSTILL 1 DROP INTO THE LEFT EYE AT BEDTIME midodrine 5 mg tablet 5 mg PO TID Qty: 90 1RF Rx Instructions: do not give last dose of day after 6PM or within 4 hrs of bedtime rivaroxaban 20 mg tablet 20 mg PO QPM Qty: 90 0RF Rx Instructions: maintenance dose to start February 12 prednisolone acetate 1 % drops,suspension 1 drp ophthalmic (eye) TID Patient Comments: Pt states she takes it BID, Left eye erythromycin 5 mg/gram (0.5 %) ointment 1 applic ophthalmic (eye) 1999 Patient Comments: APPLY A THIN COATING OF MEDICATION TO LEFT EYELID MARGINS NIGHTLY NEEDED atropine 1 % drops 1 drp ophthalmic (eye) DAILY Patient Comments: INSTILL ONE DROP IN THE LEFT EYE ONCE DAILY cyclosporine 0.05 % dropperette 1 drp ophthalmic (eye) BID Patient Comments: INSTILL ONE DROP IN EACH EYE TWO TIMES A DAY ascorbic acid (vitamin C) [Vitamin C] 500 mg tablet 500 mg PO BID Patient Comments: TAKE ONE TABLET BY MOUTH TWICE A DAY brimonidine 0.2 % drops 1 drp ophthalmic (eye) TID Patient Comments: INSTILL 1 DROP INTO THE LEFT EYE 3 TIMES DAILY Discharge Data Discharge Date/Time-TO BE ENTERED AT DEPARTURE: 03/01/25 23:08 HPI General Mode of arrival: EMS . Date/Time Provider Initiated Documentation: 03/01/25 18:59 . Limitations to Documentation: no limitations . Information obtained by: patient and old records reviewed . HPI Narrative: This is an 84-year-old female patient with a history of blindness in her left eye, as well as heart failure, hypothyroidism, pulmonary embolism on rivaroxaban, presenting for evaluation of left eye pain. She reports that her pain started yesterday and has been gradually worsening. It is located exclusively in her eye, no religious pain or headache. She does feel nauseated due to the pain. She has not tried any [id number] medicines. She states that she on occasion will have pain in her eye but is never been this severe. She called [facility] who does her ophthalmology care and they recommended that she present to the emergency department for evaluation. She reports that she does not have any change in the vision in her unaffected right eye. She is typically a hand wave only in the left eye. She states that she does not believe she got any foreign bodies or other items in her eye that could have caused damage. She does have history of corneal ulcer and takes daily erythromycin. She has a history of high pressure in her eye for which she takes multiple drops. I was able to obtain records from her [facility] ophthalmology note. The patient has a history of recurrent hyphema, vitreous hemorrhage, and dull aches in her left eye, has undergone posterior capsulotomy in 2022, had intravitreal injections in 2023, and has a history of filamentary keratitis with severe corneal ulcer in 2022. Related Data Home Medications ?Medication ?Instructions ?Recorded ?Confirmed prednisolone acetate 1 % eye 1 drp ophthalmic (eye) TI D 08/02/23 03/01/25 drops,suspension dorzolamide 22.3 mg-timolol 6.8 1 drp ophthalmic (eye) BID 12/23/24 03/01/25 mg/mL eye drops latanoprost 0.005 % eye drops 1 drp ophthalmic (eye) H S 12/23/24 03/01/25 ascorbic acid (vitamin C) 500 mg 500 mg PO BID 03/01/25 tablet (Vitamin C) atropine 1 % eye drops 1 drp ophthalmic (eye) DAILY 01/21/25 03/01/25 cyclosporine 0.05 % eye drops in a 1 drp ophthalmic (e ye) BID 01/21/25 03/01/25 dropperette erythromycin 5 mg/gram (0.5 %) eye 1 applic ophthalmic (eye) 199901/21/25 03/01/25 ointment Synthroid 150 mcg tablet 150 mcg PO QA #90 tabs 01/1303/01/25 (levothyroxine) midodrine 5 mg tablet 5 mg PO TID #90 tabs 5 03/01/25 rivaroxaban 20 mg tablet 20 mg PO QPM #90 tabs 03/01/25 brimonidine 0.2 % eye drops 1 drp ophthalmic (eye) TID 03/01/25 03/01/25 Previous Rx's ?Medication ?Instructions ?Recorded Synthroid 150 mcg tablet 150 mcg PO QAM #90 tabs 01/13 12/07 (levothyroxine) midodrine 5 mg tablet 5 mg PO TID #90 tabs 5 rivaroxaban 20 mg tablet 20 mg PO QPM #90 tabs Allergies Allergy/AdvReac Type Severity Reaction Status Date / Time codeine Allergy Unknown Unknown Verified 03/01/25 20:41 estrogens, conjugated (From Allergy Unknown Unknown Verified 03/01/25 20:41 Premarin) levothyroxine sodium (From Allergy Unknown Unknown Verified 03/01/25 20:41 Synthroid) meperidine (From Demerol) AdvReac Intermediate Nausea Verified 03/01/25 20:41 morphine AdvReac Intermediate Nausea Verified 03/01/25 20:41 General Stated Complaint: EyeProblem ANIYA: 4 Exam Narrative Exam Narrative: Gen: Awake and alert, in no apparent distress HEENT: Right eye with reported typical vision, pupil reactive, EOMs are full and without nystagmus or limitation. Left eye status post corneal transplant, with a fixed pupil dilated at 5 mm. The globe is soft to palpation, though the intraocular pressure measures 51 in the affected left eye, 22 in the right. She has light perception only in the affected left eye. Fluorescein staining reveals no significant uptake suggestive of ulceration or corneal abrasion. Left religious is without tenderness or nodularity over the temporal artery. Neck: Supple Lungs: No apparent respiratory distress, normal respiratory effort. CV: Appears well perfused Abdomen: Non-distended MSK: Moves 4 extremities without apparent limitation in ROM Skin: Visualized skin without rashes, cyanosis. Neuro: Normal Gait, no obvious focal deficits or facial asymmetry. Speaks in full, clear sentences. Psych: Appropriate for situation. Course Vital Signs Vital signs: Vital Signs Temperature 36.1 C L 03/01/25 18:58 Pulse 59 L 03/01/25 18:58 Respiratory Rate 18 03/01/25 18:58 Blood Pressure 164/58 H 03/01/25 18:58 Pulse Oximetry 98 03/01/25 18:58 Temperature 36.1 C L 03/01/25 18:58 Temperature Source Tympanic 03/01/25 18:58 Pulse 59 L 03/01/25 18:58 Respiratory Rate 18 03/01/25 18:58 Blood Pressure 164/58 H 03/01/25 18:58 Blood Pressure Position Sitting 03/01/25 18:58 Pulse Oximetry 98 03/01/25 18:58 Oxygen Delivery Method Room Air 03/01/25 18:58 Oxygen Flow Rate 0 03/01/25 18:58 Medical Decision Making This is a an 84-year-old female patient presenting for evaluation of a painful blind left eye. Differential includes but is not limited to occlude angle-closure glaucoma, certainly considered uveitis, iritis, optic neuritis, temporal arteritis, CRAO, corneal abrasion and ulceration. No neurodeficits to suggest acute stroke, no trauma to suggest retrobulbar hematoma, facial fracture. The patient had no relief of pain with instillation of tetracaine for full examination, making scleral and corneal abnormalities a less likely source of her symptoms. We will obtain laboratory studies to include CBC, CMP, ESR and CRP. Given the elevated pressure in the history of high pressures, we will provide the patient with timolol, dorzolamide, and brimonidine drops. I will reach out to ophthalmology at [facility] where she follows. -I independently interpreted the laboratory studies, which show no significant leukocytosis, anemia, or thrombocytopenia. The chemistry panel is without evidence of electrolyte abnormality, new kidney dysfunction, or liver injury. She does have a history of CKD, with a GFR of 44 today, BUN of 30, creatinine 1.2. ESR and CRP are negative and temporal arteritis is of very low concern at this time. The patient had ongoing severe pain despite instillation of the above-noted drops. Repeat pressure 46. Discussed at length with [facility] ophthalmology Dr. Magallanes, who states that this patient will need to be seen in their clinic in the morning for definitive management. Unfortunately, I have not been able to control the patient's pressure or pain to the point where I think she would be appropriate for discharge to the outpatient environment, and she does not have reliable transportation to get to [facility], nor could we arrange for public transportation and time. I discussed this limitation with the coat hanger shaper machine operator at [facility], and anticipate reaching out to [facility] given their closer proximity. Certainly we could also arrange a wait and return ambulance transport given the time sensitive nature of this complaint. He did recommend a renally appropriate dose of acetazolamide, 125, which was provided orally. [facility] ophthalmology team reviewed the patient's case, and given her consistently high pressures, ongoing pain, and need for an intervention they feel it is not unreasonable for the patient to be transferred to [facility] ED to ED. The patient received a small dose of fentanyl for ongoing pain per [facility] Optho recommendations, and was transported at the grab setter level for cardiac monitoring and further pain and nausea management to [facility]. The patient remained hemodynamically appropriate while under my care, left our facility without incident. Sheron Alejo MD [facility] All Active Problems (Updated 03/01/25 @ 23:51 by Sheron Alejo MD) Blind painful left eye (Acute) Acute glaucoma of left eye (Acute) Hypotension due to hypovolemia (Acute) Heart failure (Acute) Pulmonary embolism (Acute) Pancreatitis (Chronic ~04/2024) Compression fracture of body of thoracic vertebra (Acute) Hypothyroidism (Chronic) Osteoporosis (Chronic) Protein S deficiency (Chronic) Dyspnea (Acute) deconditioned Vitamin D deficiency (Acute) takes supplement Diverticulosis (Acute) Presbyopia (Acute) Medical History Chronic osteomyelitis of jaw historical use of Premarin with protein s deficiency. Many surgeries in her history, has dental implants. Breast lump or mass Dr. Will, [facility] surgeon Surgical History History of left cataract surgery (~07/18/14) History of right cataract surgery (~06/28/14) Hx of tonsillectomy Hx of colonoscopy 2001, 2016 Hx of sinus surgery 1988, 2006, 08/2015, 01/2016 Hx of removal of cyst (~1993) Hx of wisdom tooth extraction (~1987) Hx of section Family History Mother , 85 No problems noted. Father , 49 Heart disease Sister , 80 Breast cancer Brother , 55 Heart disease Son No problems noted. Social History Smoking/Tobacco Use Status: Former Tobacco Use tobacco type: cigarettes Quit Date: 07/16/93 Quit status: quit date established Second Hand Exposure: Yes Smoking risk assessment performed?: Yes Alcohol Intake: former Drug use: Never Substance use type: does not use Counseling given: No Adopted: No Caregiver/Support person: No Household members: none Housing: house Number of Children: 1 Communication Needs: None Education Level: college Details: associate degree Do you need help understanding health information?: Never current occupation: retired Pets and animals: No Sexually active: No Do you think of yourself as: straight/heterosexual Current gender identity: female What is your relationship status?: How often do you talk on the phone with friends or family?: three or more times per week How often do you get together with friends or relatives?: once per week How often do you attend mandaeism or orthodoxy services?: decline to answer Do you belong to any clubs or organized social groups?: no Panel score (0-1 are the most socially isolated patients): 1 What type of physical activity do you participate in: none Frequency: does not exercise Laura/Bahai: Islam Special laura needs: No Seatbelt use: always Drive intox or ride w/intox patrol driver: No Do you feel safe at home: Yes Do you feel safe in your relationship?: Yes
[2025-03-01] MEDS: ACETAMINOPHEN 1,000 MG/100 ML BAG 400 MG IVPB (19:25)
[2025-03-01] MEDS: Ondansetron 4 MG/2 ML VIAL IVP (19:25)
[2025-03-01 19:28] LABS: Abs Immature Grans 0.02 10^3/uL (0.0-0.06); HCT 39.3 % (36.0-46.0); HGB 13.2 g/dL (11.2-15.7); Immature Grans % 0.2 %; MCH 33.5 pg (27.0-33.0); MCHC 33.6 % (32.0-36.0); MCV 100 fL (80-95); MPV 11.9 fL (8.0-11.0); Platelet Count 207 10^3/uL (130-400); RBC 3.94 10^6/uL (3.93-5.22); RDW 12.4 % (11.7-14.6); RDW-SD 46.2 fL; WBC 8.26 10^3/uL (4.4-10.8)
[2025-03-01 19:30] LABS: ESR 16 mm/hr (0-30)
[2025-03-01 20:25] LABS: ALT 28 U/L (14-59); AST 21 U/L (15-37); Albumin 3.5 g/dL (3.4-5.0); Alkaline Phosphatase 67 U/L (46-116); Anion Gap 11.4 mmol/L (3-11); BUN 30 mg/dL (7-18); Bilirubin, Total 0.6 mg/dL (0.2-1.0); CO2 20.6 mmol/L (21.0-32.0); Calcium 8.8 mg/dL (8.5-10.1); Chloride 104 mmol/L (98-107); Estimated GFR 44.08 (mL/min/1.73m2); Glucose 119 mg/dL (74-106); Potassium 3.9 mmol/L (3.5-5.1); Sodium 136 mmol/L (136-145); Total Protein 7.7 g/dL (6.4-8.2)
[2025-03-01] MEDS: Timolol 0.5% 5 ML BTL OS (20:25)
[2025-03-01] MEDS: Brimonidine 0.15% 5 ML BTL OS (20:27)
[2025-03-01 20:28] LABS: C-Reactive Protein < 0.50 mg/dL (<or=0.5)
[2025-03-01] MEDS: acetaZOLAMIDE 250 MG TAB 125 MG PO (21:00)
[2025-03-01] MEDS: Tetracaine 0.5% 4 ML BTL OP (21:57)
[2025-03-01] MEDS: fentaNYL 100 MCG/2 ML VIAL 25 MCG IVP (22:48)
[2025-03-01 22:53] VITALS: BP 139/59; PULSE 57; RESP 15; O2SAT 95
== END 2025-03-01 23:08 | disposition short-term general hospital (02) ==
PROVIDERS: Emergency Provider Emergency Medicine; PCP Family Medicine
DX: H40.9 Unspecified glaucoma (principal); H57.12 Ocular pain, left eye; H53.8 Other visual disturbances; Z94.7 Corneal transplant status; I10 Essential (primary) hypertension
CPT/HCPCS: 80053; 85652; 96365; 96375; 99285; 85025; 86140; J0131; J2405; J3010

== ENCOUNTER 2025-03-17 09:20 | Outpatient (REF) | payer MEDICARE, BC, SELFPAY ==
[2025-03-17 22:29] LABS: Cholesterol 263 mg/dL (<200); HDL Cholesterol 59 mg/dL (>or=50)
== END 2025-03-17 09:21 | disposition home or self-care (01) ==
LOC: LBN 09:20
PROVIDERS: PCP Family Medicine; Visit Provider Nurse Practitioner Family
DX: E03.9 Hypothyroidism, unspecified (principal)
CPT/HCPCS: 80061